=== PATIENT | male | born 1980 | race Two or more races ===

== ENCOUNTER 2017-01-14 09:46 | Emergency (ER) | payer MEDICAID ==
[~2017-01-14] VITALS: Ht 172.7 cm; Wt 81.6 kg
[2017-01-14 09:50] VITALS: BP 114/62
== END 2017-01-14 10:13 | disposition home or self-care (01) ==
LOC: ER 09:48
DX: Z76.0 Encounter for issue of repeat prescription (principal); F32.9 Major depressive disorder, single episode, unspecified
CPT/HCPCS: A4606; Z7610

== ENCOUNTER 2017-04-05 13:07 | Emergency (ER) | payer MEDICAID ==
[~2017-04-05] VITALS: Ht 172.7 cm; Wt 79.4 kg
[2017-04-05 13:19] VITALS: BP 151/84
[2017-04-05] MEDS ORDERED: PAROXETINE HCL 20 MG TABLET PO SCH (13:30)
== END 2017-04-05 13:43 | disposition home or self-care (01) ==
LOC: ER 13:11
DX: F41.9 Anxiety disorder, unspecified (principal); F32.9 Major depressive disorder, single episode, unspecified; I31.9 Disease of pericardium, unspecified; F17.200 Nicotine dependence, unspecified, uncomplicated
CPT/HCPCS: 99284; A4606; Z7610

== ENCOUNTER 2017-05-05 17:55 | Emergency (ER) | payer MEDICAID ==
[~2017-05-05] VITALS: Ht 172.7 cm; Wt 74.8 kg
[2017-05-05 18:00] VITALS: BP 121/72
== END 2017-05-05 18:44 | disposition home or self-care (01) ==
LOC: ER 18:00
DX: F32.9 Major depressive disorder, single episode, unspecified (principal); Z76.0 Encounter for issue of repeat prescription; Z79.899 Other long term (current) drug therapy; F17.200 Nicotine dependence, unspecified, uncomplicated; Z91.19 Patient's noncompliance with other medical treatment and regimen
CPT/HCPCS: 99284; A4606; Z7610

== ENCOUNTER 2017-11-01 00:06 | Inpatient (IN) | payer MEDICAID, OTHER ==
[2017-11-01] VITALS (84 sets, daily range): BP systolic 48–157; BP diastolic 34–117
[~2017-11-01] VITALS: Ht 170.2 cm; Wt 77.1 kg
--- NOTE | 2017-11-01 00:10 | NUR ---
PT TO ER BED 7. PT BIB RA C/O OVERDOSE ON ETOH AND NORCO X 20 PER PARAMEDICS. PT PLACED IN GOWN AND ON PRODUCTION LABORER. RESP EVEN UNLABORED/NAD NOTED/AFEBRILE/SKIN WARM AND DRY/AOX4. AWAITING MD TAN.
--- NOTE | 2017-11-01 00:20 | NUR ---
MD AT BEDSIDE. AWARE OF PT O2 SATING AT 79%. PT PLACED ON A NRB AT 15LPM.
--- NOTE | 2017-11-01 00:25 | NUR ---
LAB AT BEDSIDE TO DRAW.
[2017-11-01] MEDS ORDERED: ONDANSETRON HCL/PF 4 MG/2 ML VIAL IV ONE (00:30)
[2017-11-01] MEDS ORDERED: IV NS 0.9% 1,000 ML BAG IV ONE (00:30)
[2017-11-01] MEDS ORDERED: ONDANSETRON HCL/PF 4 MG/2 ML VIAL ONE ×2 (00:33→00:52)
[2017-11-01 00:35] LABS: BASOPHILS % (AUTO) 0.5 % (0.0-2.0); EOSINOPHILS # (AUTO) 0.1 /CMM (0.0-0.7); EOSINOPHILS % (AUTO) 0.8 % (0.0-6.0); HEMATOCRIT 48 % (39-51); HEMOGLOBIN 16.3 g/dL (13.5-17.5); LYMPHOCYTES # (AUTO) 4.7 /CMM (0.8-4.8); LYMPHOCYTES % (AUTO) 46.5 % (20.0-44.0); MEAN CORPUSCULAR HEMOGLOBIN 33 PG (26.0-33.0); MEAN CORPUSCULAR HGB CONC 34 g/dl (31.0-36.0); MEAN CORPUSCULAR VOLUME 96 fL (80-96); MONOCYTES # (AUTO) 0.4 /CMM (0.1-1.30); MONOCYTES % (AUTO) 3.7 % (2.0-12.0); NEUTROPHILS # (AUTO) 4.9 /CMM (1.8-8.9); NEUTROPHILS % (AUTO) 48.5 % (43.0-81.0); PLATELET COUNT (AUTO) 209 /CMM (150-450); RDW COEFFICIENT OF VARIATION 13.2 (11.5-15.0)
[2017-11-01 00:44] LABS: CREATININE 1.4 mg/dL (0.6-1.3); POTASSIUM 2.9 mmol/L (3.5-5.1)
[2017-11-01 00:48] LABS: ALBUMIN 3.7 g/dL (3.4-5.0); BILIRUBIN,TOTAL 0.3 mg/dL (0.2-1.0); SALICYLATE 1.7 mg/dL (2.8-20.0)
--- NOTE | 2017-11-01 01:00 | NUR ---
ZOFRAN 4MG IV L AC GIVEN PER MD VERBAL ORDER.
--- NOTE | 2017-11-01 01:05 | NUR ---
XRAY AT BEDSIDE.
[2017-11-01] MEDS ORDERED: AZTREONAM 1 G VIAL ONE (01:27)
[2017-11-01] MEDS ORDERED: LEVOFLOXACIN 750 MG /D5W 150ML 150 ML IV ONE (01:27)
[2017-11-01] MEDS ORDERED: LEVOFLOXACIN 750 MG /D5W 150ML PIGGYBACK IV ONE (01:30)
[2017-11-01] MEDS ORDERED: AZTREONAM 1 G in IV NS 0.9% 100 ML IV ONE (01:30)
--- NOTE | 2017-11-01 01:40 | NUR ---
CALLED FOR ICU BED
--- NOTE | 2017-11-01 01:48 | NUR ---
DR HUDSON AND RT AT BEDSIDE FOR INTUBATION. SEE INTUBATION INTERVENTION NOTES.
[2017-11-01] MEDS ORDERED: PROPOFOL 100 ML ONE ×2 (02:06→02:13)
--- NOTE | 2017-11-01 02:06 | NUR ---
CALLED RADIOLOGY FOR STAT CXR FOR TUBE PLACEMENT
--- NOTE | 2017-11-01 02:07 | NUR ---
XRAY AT BEDSIDE FOR PLACEMENT CHECK OF ET TUBE.
--- NOTE | 2017-11-01 02:10 | NUR ---
VENT SETTINGS PEEP 10/RATE 20/TV 550/FIO2 100%.
--- NOTE | 2017-11-01 02:25 | NUR ---
PROPOFOL TITRATED TO 20MCG/MIN PER PROTOCOL. PT B/P 183/126 HR 133.
--- NOTE | 2017-11-01 02:29 | NUR ---
ICU 264
--- NOTE | 2017-11-01 02:30 | NUR ---
RT REMAINS AT BEDSIDE. PROPOFOL TITRATED TO 25 MCG/MIN PER PROTOCOL. PT B/P 198/130 HR 137.
--- NOTE | 2017-11-01 02:48 | NUR ---
PT INTUBATED IN ER BY MD HUDSON WITH 7.5CM ETT @ 24 MM LIP, BILATERAL BREATH SOUNDS PRESENT, POSITIVE COLOR CHANGE ON CAP. PT PLACED ON THE FOLLOWING SETTING AC R20 VT 550 100%O2 +10 PEEP, PT TOLERATING SETTINGS AMBU BAG AT BEDSIDE, VENT ALARMS SET AND DISCONNECTION VERIFIED, VENT PLUGGED INTO RED OUTLET. PT SUCTIONED AND COPIOUS AMOUNTS OF SECRETIONS CONTAINING STOMACH CONTENT( POSSIBLE ASPIRATION).PENDING POST INTUBATION ABG, WILL CONTINUE TO MONITOR... Addendum: 11/01/17 at 0402 by HORTENSIA GALEANO RT Amended: Links added.
[2017-11-01 02:54] LABS: ABG BASE EXCESS -8.7 mmol/L; ABG OXYGEN SATURATION 74.7 % (92.0-98.5); ABG PCO2 76.9 mmHg (35.0-45.0); ABG PH 7.098 (7.350-7.450); ABG PO2 48.7 mmHg (75.0-100.0); AaDO2 587.4 mmHg; COHb 1.8 % (0.5-1.5); MetHb 0.4 % (0.0-1.5); O2Hb 73.1 % (94.0-97.0); SITE, ABG Left Radial; VENT MODE, BG NRB
[2017-11-01] MEDS ORDERED: ETOMIDATE 2 MG/ML VIAL IV ONE (03:00)
[2017-11-01] MEDS ORDERED: ENOXAPARIN SODIUM 40 MG/0.4 ML DISP.SYRIN SQ SCH (03:00)
[2017-11-01] MEDS ORDERED: PROPOFOL 100 ML IV PRN ×2 (03:00→10:30)
[2017-11-01] MEDS ORDERED: ONDANSETRON HCL/PF 4 MG/2 ML VIAL IVP PRN (03:00)
[2017-11-01] MEDS ORDERED: ONDANSETRON HCL/PF 4 MG/2 ML VIAL IV PRN (03:00)
[2017-11-01] MEDS ORDERED: ZOLPIDEM TARTRATE 5 MG TABLET PO PRN (03:00)
[2017-11-01] MEDS ORDERED: HYDROCODONE/APAP 5/325MG 1 EACH TABLET PO PRN (03:00)
[2017-11-01] MEDS ORDERED: MAGNESIUM HYDROXIDE 30 ML UDC PO PRN (03:00)
[2017-11-01] MEDS ORDERED: ROCURONIUM BROMIDE 50 MG/5 ML IV ONE (03:00)
[2017-11-01] MEDS ORDERED: ACETAMINOPHEN 325 MG TABLET PO PRN (03:00)
--- NOTE | 2017-11-01 03:20 | NUR ---
REPORT CALLED TO CRISTINA VALLADARES FOR PILO.
--- NOTE | 2017-11-01 03:21 | NUR ---
URINE OBTAINED AND SENT TO THE LAB.
[2017-11-01] MEDS ORDERED: VANCOMYCIN 1 GM in IV D5W 250 ML IV ONE ×2 (03:30→04:00)
[2017-11-01] MEDS ORDERED: PANTOPRAZOLE 40 MG VIAL IV ONE (03:30)
--- NOTE | 2017-11-01 03:40 | NUR ---
PT TRANSPORTED TO ICU 264 VIA STRETCHER ON LAB SPECIALIST WITH RN AND RT PER ACLS PROTOCOL.
[2017-11-01 03:51] LABS: APPEARANCE,URINE CLEAR (CLEAR); BILIRUBIN,URINE NEGATIVE (NEGATIVE); BLOOD, URINE 1+ Ery/uL (NEGATIVE); COLOR,URINE YELLOW (YELLOW); KETONES,URINE NEGATIVE (NEGATIVE); LEUKOCYTE ESTERASE ,URINE NEGATIVE (NEGATIVE); NITRITE, URINE NEGATIVE (NEGATIVE); PH,URINE 5.5 (5.0-8.0); PROTEIN,URINE 1+ mg/dl (NEGATIVE); UGLUCOSE TRACE mg/dL (NEGATIVE); UROBILINOGEN,URINE 0.2 EU/dL (0.2)
--- NOTE | 2017-11-01 04:00 | NUR ---
SALES STORE CHECKER INITIAL NOTE RECEIVED REPORT FROM ALLISON EVANS. PT TRANSPORTED VIA GURNEY TO ICU BY TJ RN, HORTENSIA RT AND EMT. PT IN MOVED TO BED. INTUBATED AND SEDATED ON PROPOFOL AT 25MCG. PUPILS ARE PINPOINT AND NON REACTIVE. UNABLE TO ASSESS LUNG SOUNDS. ETT 7.5 24 CM. VENT SETTINGS AC 20 TV 550 FIO2 100 PEEP 10. BOWEL SOUNDS HYPOACTIVE. DAVENPORT INTACT AND DRAINING URINE. PULSES PRESENT. SKIN IS MOTTLING AND COLD TO TOUCH. TEMP 98.6 AXILLARY. IV PATENT AND INTACT, AC 18G ON LEFT AND RIGHT. BED IN LOW LOCKED POSITION. WILL CONTINUE TO CLOSELY MONITOR.
[2017-11-01 04:07] LABS: BACTERIA,URINE None seen /HPF (None Seen); SQUAMOUS EPITHELIAL CELL,UR Few /HPF (None Seen); WBC,URINE 0-2 /HPF (0-3)
[2017-11-01] MEDS ORDERED: Thiamine 100 MG/ML VIAL ONE (04:10)
[2017-11-01] MEDS ORDERED: VANCOMYCIN 1 GM VIAL ONE (04:11)
[2017-11-01] MEDS: Thiamine 100 MG in IV D5W 50 ML IV SCH (04:20)
[2017-11-01 04:28] LABS: ABG BASE EXCESS -11.2 mmol/L; ABG OXYGEN SATURATION 55.8 % (92.0-98.5); ABG PCO2 81.9 mmHg (35.0-45.0); ABG PH 7.049 (7.350-7.450); ABG PO2 35.1 mmHg (75.0-100.0); COHb 1.8 % (0.5-1.5); MetHb 0.3 % (0.0-1.5); O2Hb 54.6 % (94.0-97.0); PEEP,BG 10 cm H2O; SITE, ABG Left Radial; VENT MODE, BG AC VENT; VT, ABG 550 mL
[2017-11-01] MEDS: IV NS 0.9% 1,000 ML IV PRN ×2 (04:48→13:25)
[2017-11-01] MEDS: PROPOFOL 100 ML IV PRN ×7 (04:52→21:20)
--- NOTE | 2017-11-01 05:05 | NUR ---
BLANKET WINDER OPERATOR SPOKE WITH DR VICKERS REGARDING NEW PATIENT AND POST INTUBATION RESULTS. NEW ORDERS RECEIVED WILL ENDORSE TO RT. BLOOD PRESSURE LOW IN THE 80'S WITH A HR IN THE 130'S, ORDER FOR NEOSYNPHRINE RECEIVED. WILL CONTINUE TO CLOSELY MONITOR.
[2017-11-01] MEDS ORDERED: Folic acid 1 MG/0.2 ML VIAL ONE (05:06)
--- NOTE | 2017-11-01 05:12 | NUR ---
VENT SETTINGS CHANGE DUE TO POST ABG RESULTS. 26, 600, 100% +10 Addendum: 11/01/17 at 0515 by MARY HUTTON RT Amended: Links added.
[2017-11-01] MEDS ORDERED: PIPERACILLIN /TAZOBACTAM 3.375 G VIAL IV ONE (05:13)
[2017-11-01] MEDS: Folic acid 1 MG in IV D5W 50 ML IV SCH (05:20)
--- NOTE | 2017-11-01 05:23 | NUR ---
SAMPLER RADIOACTIVE WASTE DF PT POTASSIUM OF 2.9 ORDER FOR 50MEQ KCL IV.NO POTASSIUM KCL IN PYXIS OR IN NIGHT LOCKER. I S/W RN MEDICAL DATA ENTRY CLERK LASHAWN SCHMID SCUT[facility]ER TENDER PAGE TO [facility]. PHARMACISTS EN ROUTE.
[2017-11-01] MEDS ORDERED: PHENYLEPHRINE 10 MG/ML VIAL ONE ×2 (05:29)
[2017-11-01] MEDS: PHENYLEPHRINE 80 MG in IV D5W 250 ML IV PRN ×5 (05:35→21:20)
[2017-11-01 05:37] LABS: HEMATOCRIT 57 % (39-51); LYMPHOCYTES % (AUTO) 50.7 % (20.0-44.0); MEAN CORPUSCULAR HEMOGLOBIN 33 PG (26.0-33.0); MEAN CORPUSCULAR HGB CONC 34 g/dl (31.0-36.0); MEAN CORPUSCULAR VOLUME 96 fL (80-96); NEUTROPHILS % (AUTO) 47.2 % (43.0-81.0); PLATELET COUNT (AUTO) 234 /CMM (150-450); RDW COEFFICIENT OF VARIATION 13.1 (11.5-15.0); RED BLOOD CELL COUNT(AUTO) 5.95 MIL/uL (4.5-6.0); WHITE BLOOD COUNT (AUTO) 2.9 K/uL (4.3-11.0)
[2017-11-01 05:38] LABS: BASOPHILS % (AUTO) 0.2 % (0.0-2.0); EOSINOPHILS % (AUTO) 0.6 % (0.0-6.0); HEMOGLOBIN 19.4 g/dL (13.5-17.5); LYMPHOCYTES # (AUTO) 1.5 /CMM (0.8-4.8); MONOCYTES % (AUTO) 1.3 % (2.0-12.0); NEUTROPHILS # (AUTO) 1.4 /CMM (1.8-8.9)
--- NOTE | 2017-11-01 05:44 | NUR ---
RESPIRATORY ASSISTANT DF PT WITH LOW BP NEOSYNEPHRINE 80 MG ORDERED/40 MG AVAIL AT THIS TIME/PHARMACISTS IN ROUTE TO PREPARE 80 MG NEOSYNEPHRINE. WILL TRANSFUSE 40MG/250 ML UNTIL 80 IS AVAIL
[2017-11-01 05:46] LABS: ALANINE AMINOTRANSFERASE 7 U/L (12-78); ALKALINE PHOSPHATASE 60 U/L (46-116); BILIRUBIN,TOTAL 0.4 mg/dL (0.2-1.0); CALCIUM, SERUM 7.6 mg/dL (8.5-10.1); CARBON DIOXIDE 25 mmol/L (21-32); CHLORIDE 105 mmol/L (98-107); CREATININE 1.6 mg/dL (0.6-1.3); GLUCOSE 171 mg/dL (74-106); SODIUM SERUM 141 mmol/L (136-145); TOTAL PROTEIN, SERUM 6.2 g/dL (6.4-8.2)
[2017-11-01 05:51] LABS: TROPONIN I 0.286 ng/mL (0.00-0.056)
[2017-11-01 05:57] LABS: THYROID STIMULATING HORMONE 1.491 uIU/mL (0.358-3.74)
[2017-11-01 05:58] LABS: UREA NITROGEN, BLOOD 17 mg/dL (7-18)
[2017-11-01 05:59] LABS: ASPARTATE AMINOTRANSFERASE 0 U/L (15-37)
[2017-11-01] MEDS: POTASSIUM CL. PREMIX PERIPHER. 50 ML IV SCH ×6 (05:59→13:30)
[2017-11-01] MEDS: PIPERACILLIN /TAZOBACTAM 4.5 G in IV D5W 50 ML IV SCH ×3 (06:11→17:05)
[2017-11-01 06:24] LABS: LYMPHOCYTES % (MANUAL) 57 % (16-48); MONOCYTES % (MANUAL) 1 % (0-11.0); NEUTROPHILS % (MANUAL) 42 (42-76)
--- NOTE | 2017-11-01 06:25 | NUR ---
TENNIS CENTRE MANAGER DECREASED PROPOFOL DUE TO INCREASED SEDATION. PT WOKE UP, OPENS EYES, ABLE TO FOLLOW SIMPLE COMMANDS. WILL INCREASE PROPOFOL TO PRIOR SETTINGS OF PROPOFOL 25MCG. WILL CONTINUE TO MONITOR.
[2017-11-01] MEDS ORDERED: FEE PK DOSING 1 MIN EA MC ONE (07:23)
--- NOTE | 2017-11-01 07:30 | NUR ---
ICU/RN: Pt received intubated, on 100% FIO2, with O2 saturation in 70's, lungs sounds with diminshed rhonchi throughout. Airway cleared of secretions. SBP fluctuating between 70-80's SBP, ongoing titration of IV pressors to maintain SBP >90mmHg. Tele reading ST 110's. Pt skin clammy, diaphoretic, bilat lower ext pale and mottled. OGT set to LIS with brown gastric drainage. Auscultated, postive placement. FC draining to gravity. Alarm sounds audible, will cont to monitor pt.
--- NOTE | 2017-11-01 07:33 | NUR ---
@0733 PT. RECEIVED ON VENT SUPPORT VIA ET TUBE WITH PARAMETERS BELLOW ORDER: AC 26 VT 600 FIO2 100% PEEP 10 B/S CLEAR BILATERAL. VENT PLUGGED INTO RED OUTLET WITH ALARMS ON AND FUNCTIONING. ASHANTI@ HOB. Addendum: 11/01/17 at 1633 by KAE ROBERTS RT Amended: Links added.
[2017-11-01] MEDS: NOREPINEPHRINE 16 MG in IV D5W 500 ML IV PRN ×2 (07:52→15:13)
[2017-11-01 08:01] LABS: SITE, ABG Left Femoral
[2017-11-01 08:02] LABS: ABG OXYGEN SATURATION 71.8 % (92.0-98.5); ABG PCO2 47.9 mmHg (35.0-45.0); ABG PH 7.232 (7.350-7.450); ABG PO2 35.4 mmHg (75.0-100.0); AaDO2 629.7 mmHg; COHb 0.6 % (0.5-1.5); MetHb 0.1 % (0.0-1.5); O2Hb 71.3 % (94.0-97.0); PEEP,BG 10 cm H2O; VT, ABG 600 mL
[2017-11-01] MEDS: PANTOPRAZOLE 40 MG VIAL IV SCH (08:08)
[2017-11-01] MEDS ORDERED: ROCURONIUM BROMIDE 50 MG/5 ML ONE (08:37)
[2017-11-01] MEDS ORDERED: ETOMIDATE 2 MG/ML VIAL ONE (08:37)
--- NOTE | 2017-11-01 08:45 | NUR ---
ICU/RN: 0600, 0700 of KCL dose administered at 0845 and 0945 respectively; 0600 dose did not save on [employer] and showed up late on EMAR.
[2017-11-01] MEDS ORDERED: VASOPRESSIN INJ 50 UNIT in IV D5W 497.5 ML IV PRN (09:30)
--- NOTE | 2017-11-01 09:30 | NUR ---
VENT ESEQUIEL HU PER DR. PANG: AC 24 VT 650 PEEP +15 CMH20 Addendum: 11/01/17 at 0931 by KAE ROBERTS RT Amended: Links added.
--- NOTE | 2017-11-01 09:45 | NUR ---
ICU/RN: Dr Raza at bedside; updated on current labs, resp status. Pt awakens to name and touch and follows commands however becomes agitated when off sedation. Per Dr Raza, maximize sedation, pt with severe hypoxemia and barotrauma with difficulty maintaining O2 sat >92%. Ok to titrate Diprivan up to 100mcg/kg/min. Vasopressin ordered for BP support.
[2017-11-01] MEDS ORDERED: IV NS 0.9% 250 ML IV ONE (10:00)
--- NOTE | 2017-11-01 11:00 | NUR ---
ICU/RN: Dr Andrews in for nephrology consult; updated on pt status. Informed of minimal urine output; only 40cc of urine from [id number].
[2017-11-01] MEDS: HYDROMORPHONE INJ 0.5 MG/0.5 ML SYRINGE IV PRN ×3 (11:05→17:06)
[2017-11-01 11:12] LABS: ABG BASE EXCESS -6.1 mmol/L; ABG OXYGEN SATURATION 90.5 % (92.0-98.5); ABG PCO2 37.2 mmHg (35.0-45.0); ABG PH 7.327 (7.350-7.450); ABG PO2 56.4 mmHg (75.0-100.0); AaDO2 619.4 mmHg; MetHb 0.6 % (0.0-1.5); PEEP,BG 15 cm H2O; SITE, ABG Left Femoral; VT, ABG 650 mL
[2017-11-01 13:34] LABS: CALCIUM, SERUM 7.6 mg/dL (8.5-10.1); CREATININE 2.7 mg/dL (0.6-1.3)
[2017-11-01] MEDS ORDERED: PHARMACY TO ADJUST ALL MEDS FOR RENAL FUNCT XX PRN (14:00)
--- NOTE | 2017-11-01 15:00 | NUR ---
ICU/RN: Urine sample collected. Called lab for turkey picker.
[2017-11-01] MEDS ORDERED: IV NS 0.9% 1,000 ML IV PRN (15:16)
[2017-11-01] MEDS ORDERED: IV NS 0.9% 250 ML IV PRN (15:30)
[2017-11-01 16:19] LABS: CREATININE, URINE 160.4 MG/DL (30.0-125.0)
[2017-11-01] MEDS: VANCOMYCIN 1 GM in IV NS 0.9% 250 ML IV SCH (16:23)
--- NOTE | 2017-11-01 19:17 | NUR ---
ICU/RN: Pt intubated, in bed, tolerating current vent settings, SPO2 100%, SBP maintained over 90mmHg. Pt sedated on Diprivan at 80mcg/kg/min. DAVID PICC patent and intact. FC with good urine output of clear yellow urine. Care endorsed to PM RN for PILO.
--- NOTE | 2017-11-01 20:00 | NUR ---
TRAFFIC EXPERT NOTES RECEIVED PT IN BED, SEDATED. TELE READS SR 90s. ON VENT VIA ETT, RIGOBERTO WELL, SATING AT 100%. OGT IN PLACE, CONNECTED TO LIS WITH MINIMAL BROWN GASTRIC OUTPUT. DAVENPORT CATH IN PLACE, DRAINING WELL. DAVID PICC RUNNING SHANTELLE AT 300 MCG/MIN, LEVO AT 30 MCG/MIN, DIPRIVAN AT 80 MCG/KG/MIN, AND NS AT TKO. RAC 18G AND LW 20G IN PLACE. COLD LOWER EXTREMITIES WITH WEEK PULSES. HOB ELEVATED, TURNED AND REPOSITIONED. SIDE RAILS X 3. AT BEDSIDE, ALL QUESTIONS ANSWERED.
--- NOTE | 2017-11-01 23:30 | NUR ---
BUILDING SERVICES COORDINATOR NOTES PT TOLERATING CURRENT VENT SETTINGS VERY WELL. CONTACTED THERAPIST PHYS DESIGN PROJECT MANAGER, DR ARAUJO. ORDERS RECEIVED TO DECREASE TIDAL VOLUME AND TITRATE PEEP AND FIO2 TOLERATED.
[2017-11-02] VITALS (104 sets, daily range): BP systolic 88–135; BP diastolic 47–77
[2017-11-02] MEDS: PROPOFOL 100 ML IV PRN ×9 (00:12→23:30)
[2017-11-02] MEDS: NOREPINEPHRINE 16 MG in IV D5W 500 ML IV PRN ×3 (00:13→17:11)
[2017-11-02] MEDS: PIPERACILLIN /TAZOBACTAM 4.5 G in IV D5W 50 ML IV SCH ×5 (00:17→23:00)
[2017-11-02] MEDS: Folic acid 1 MG in IV D5W 50 ML IV SCH (02:36)
[2017-11-02] MEDS: Thiamine 100 MG in IV D5W 50 ML IV SCH (02:36)
[2017-11-02] MEDS ORDERED: LEVOFLOXACIN 750 MG /D5W 150ML 750 MG in PREMIX 1 EA IV SCH ×2 (03:30→23:00)
[2017-11-02] MEDS: VANCOMYCIN 1 GM in IV NS 0.9% 250 ML IV SCH ×2 (04:39→17:51)
[2017-11-02 05:11] LABS: BASOPHILS % (AUTO) 0.1 % (0.0-2.0); EOSINOPHILS % (AUTO) 0.1 % (0.0-6.0); HEMATOCRIT 43 % (39-51); HEMOGLOBIN 14.8 g/dL (13.5-17.5); LYMPHOCYTES # (AUTO) 1.2 /CMM (0.8-4.8); LYMPHOCYTES % (AUTO) 8.8 % (20.0-44.0); MEAN CORPUSCULAR HEMOGLOBIN 33 PG (26.0-33.0); MEAN CORPUSCULAR HGB CONC 35 g/dl (31.0-36.0); MEAN CORPUSCULAR VOLUME 95 fL (80-96); MONOCYTES # (AUTO) 0.4 /CMM (0.1-1.30); MONOCYTES % (AUTO) 2.8 % (2.0-12.0); NEUTROPHILS # (AUTO) 11.8 /CMM (1.8-8.9); NEUTROPHILS % (AUTO) 88.2 % (43.0-81.0); PLATELET COUNT (AUTO) 137 /CMM (150-450); RDW COEFFICIENT OF VARIATION 12.9 (11.5-15.0); RED BLOOD CELL COUNT(AUTO) 4.48 MIL/uL (4.5-6.0); WHITE BLOOD COUNT (AUTO) 13.4 K/uL (4.3-11.0)
[2017-11-02 05:33] LABS: ALBUMIN 2.5 g/dL (3.4-5.0); BILIRUBIN,TOTAL 0.6 mg/dL (0.2-1.0); CALCIUM, SERUM 7.8 mg/dL (8.5-10.1); CREATININE 2.2 mg/dL (0.6-1.3); MAGNESIUM 1.3 mg/dL (1.8-2.4); PHOSPHORUS 3.1 mg/dL (2.5-4.9); POTASSIUM 4.7 mmol/L (3.5-5.1); TOTAL PROTEIN, SERUM 5.7 g/dL (6.4-8.2)
--- NOTE | 2017-11-02 07:10 | NUR ---
PT RECEIVED ORALLY INTUBATED ON MECHANICAL VENT W/ SETTINGS PER MD. VENT IN RED OUTLET, VENT ALARMS CHECKED AND AUDIBLE. PT SX'ED AND LAVAGED PRN TO MOD AMOUNTS OF THICK PALE YELLOW SECRETIONS. ETT SECURED WITH ANCHOFAST, PATENT, CLEAN AND DRY. BREATH SOUNDS EQUAL, DIMINISHED. PLAN IS TO CONTINUE CURRENT CARE UNDER MD ORDERS AND MONITOR FOR CHANGES IN STATUS. Addendum: 11/02/17 at 0743 by PANCHO WHITING RT Amended: Links added.
--- NOTE | 2017-11-02 07:50 | NUR ---
REFRIGERATING ENGINEER NOTES RECEIVED PT IN BED, SEDATED. INTUBATED ETT 7.5 24 CM AT THE LIP. TOLERATED CURRENT [facility] VENT SETTINGS: AC 24 TV 550 FIO2 40% PEEP 8. SR 90s. OGT IN PLACE, CLAMPED. DAV[place] CATH IN PLACE, DRAINING ADEQUATE UO. DAVID PICC RUNNING LEVO AT 28 MCG/MIN, DIPRIVAN AT 50 MCG/KG/MIN, AND NS AT TKO. RAC 18G IN PLACE. HOB ELEVATED, REPOSITIONED FOR COMFORT. SIDE RAILS X 3. WILL CONT TO MONITOR
[2017-11-02 08:00] LABS: ABG BASE EXCESS -1.2 mmol/L; ABG OXYGEN SATURATION 93.5 % (92.0-98.5); ABG PCO2 38.5 mmHg (35.0-45.0); ABG PH 7.399 (7.350-7.450); ABG PO2 66.1 mmHg (75.0-100.0); AaDO2 174.8 mmHg; COHb 0.5 % (0.5-1.5); MetHb 0.5 % (0.0-1.5); O2Hb 92.6 % (94.0-97.0); PEEP,BG 8 cm H2O; SITE, ABG Right Radial; VENT MODE, BG AC 24 550; VT, ABG 550 mL
[2017-11-02] MEDS: ENOXAPARIN SODIUM 40 MG/0.4 ML DISP.SYRIN SQ SCH (08:29)
[2017-11-02] MEDS: PANTOPRAZOLE 40 MG VIAL IV SCH (08:30)
[2017-11-02] MEDS: Magnesium 1GM/D5W 100ML PREMIX 100 ML IV SCH ×2 (11:14→12:10)
--- NOTE | 2017-11-02 16:17 | NUR ---
rn notes sedation vacation. pt noted agitated and restless, bitting tube. diprivan resumed on previous rate
--- NOTE | 2017-11-02 20:21 | NUR ---
PT RECEIVED INTUBATED 7.5 ETT SECURED AT 24CM AT THE LIP. NO RESP DISTRESS NOTED. PT TOLERATING VENT SETTINGS. SX'D FOR SML AMT OF TINGED SECRETIONS. VENT ALARMS SET AND AUDIBLE. AMBU BAG AT BEDSIDE. ETT CORN CUTTER OPERATOR. VENT PLUGGED INTO RED OUTLET. WILL CONTINUE TO MONITOR. Addendum: 11/02/17 at 2022 by QUINTIN OLSON RT Amended: Links added.
[2017-11-02] MEDS ORDERED: IV NS 0.9% 100 ML IV PRN (22:00)
[2017-11-03] VITALS (88 sets, daily range): BP systolic 71–186; BP diastolic 40–121
[2017-11-03] MEDS: Folic acid 1 MG in IV D5W 50 ML IV SCH (03:00)
[2017-11-03] MEDS: Thiamine 100 MG in IV D5W 50 ML IV SCH (03:30)
--- NOTE | 2017-11-03 04:00 | NUR ---
GLOBAL CLIMATE CHANGE RESEARCHER ATTEMPTED TO GIVE PT BED BATH; PT WOKE UP; BITING ET TUBE; THRASHING AROUND THE BED. NOT FOLLOWING COMMANDS. SITTING UP. TITRATED PROPOFOL PER PROTOCOL. CONTINUE TO MONITOR. Addendum: 11/03/17 at 0734 by LYUDMILA FELTON RN PT NOTED TO DESATURATE AT THIS TIME ALSO; RT PLACED BITE BLOCK AND INCREASED FIO2 TO 70%. PT COUGHING UP THICK BLOOD TINGED SECRETIONS.
[2017-11-03] MEDS: VANCOMYCIN 1 GM in IV NS 0.9% 250 ML IV SCH (04:01)
[2017-11-03] MEDS: PROPOFOL 100 ML IV PRN ×6 (04:01→18:40)
[2017-11-03 05:05] LABS: CALCIUM, SERUM 7.5 mg/dL (8.5-10.1); CREATININE 1.5 mg/dL (0.6-1.3); POTASSIUM 4.1 mmol/L (3.5-5.1)
[2017-11-03] MEDS: PIPERACILLIN /TAZOBACTAM 4.5 G in IV D5W 50 ML IV SCH ×4 (06:00→23:14)
--- NOTE | 2017-11-03 06:00 | NUR ---
FUR DESIGNER PT WOKE UP; THRASHING AROUND THE BED. NOT FOLLOWING COMMANDS. SITTING UP. TITRATED PROPOFOL PER PROTOCOL. CONTINUE TO MONITOR.
--- NOTE | 2017-11-03 07:10 | NUR ---
CHIEF DIVERSITY OFFICER UNABLE TO REPOSITION PT D/T AGITATION. PENDING CXR PT CONTINUES TO BE AGITATED AND ATTEMPTING TO GET OUT OF BED.
--- NOTE | 2017-11-03 07:45 | NUR ---
RN NOTES RECEIVED PT IN BED, SEDATED. INTUBATED ETT 7.5 24 CM AT THE LIP. TOLERATED CURRENT [facility] VENT SETTINGS: AC 24 TV 550 FIO2 70% PEEP 8. SR 90s. OGT IN PLACE, CLAMPED. DAV[place] CATH IN PLACE, DRAINING ADEQUATE UO. DAVID PICC RUNNING LEVO AT 4 MCG/MIN, DIPRIVAN AT 75 MCG/KG/MIN, AND NS AT TKO. RAC 18G IN PLACE. HOB ELEVATED, REPOSITIONED FOR COMFORT. SIDE RAILS X 3. WILL CONT TO MONITOR
[2017-11-03] MEDS: PANTOPRAZOLE 40 MG VIAL IV SCH (08:54)
[2017-11-03] MEDS: ENOXAPARIN SODIUM 40 MG/0.4 ML DISP.SYRIN SQ SCH (09:15)
[2017-11-03] MEDS: NOREPINEPHRINE 16 MG in IV D5W 500 ML IV PRN ×2 (09:30→17:12)
[2017-11-03 09:32] LABS: ABG BASE EXCESS -1.9 mmol/L; ABG OXYGEN SATURATION 98.4 % (92.0-98.5); ABG PCO2 29.3 mmHg (35.0-45.0); ABG PH 7.469 (7.350-7.450); ABG PO2 196.1 mmHg (75.0-100.0); AaDO2 271.5 mmHg; COHb 0.2 % (0.5-1.5); MetHb 0.4 % (0.0-1.5); O2Hb 97.8 % (94.0-97.0); SITE, ABG Right Radial
--- NOTE | 2017-11-03 09:37 | NUR ---
RT NOTE: ABG RESULTS REPORTED TO . CHANGES MADE PER MD ORDER.
--- NOTE | 2017-11-03 13:55 | NUR ---
FIO2 INCREASED TO 100%. PER RN PT DESAT 84% ON FIO2 OF 50%. PT SAT WENT UP TO 95% . WILL CONTINUE TO MONITOR PT. Addendum: 11/03/17 at 1401 by ORI BLACK RT Amended: Links added.
--- NOTE | 2017-11-03 15:19 | NUR ---
PT RECEIVED INTUBATED WITH ETT ON MECHANICAL VENTILATOR ON SETTINGS NOTED. VENT CHANGES DONE PER MD ORDER. BREATH SOUNDS BILATERAL COARSE DIMINISHED HEARD UPON AUSCULTATION. SUCTIONED MODERATE AMOUNT OF SPARKS WITH RED SPECKS THICK SECRETIONS. VENT PLUGGED INTO RED OUTLET. VENT ALARMS SET AND AUDIBLE. AMBU BAG AT BEDSIDE. WILL CONTINUE TO MONITOR PT. Addendum: 11/03/17 at 1520 by ORI BLACK RT Amended: Links added.
--- NOTE | 2017-11-03 17:25 | NUR ---
DECREASED FIO2 TO 90%. PT SAT 97%. WILL CONTINUE TO TITRATE O2 RIGOBERTO.
[2017-11-03] MEDS: VANCOMYCIN 1.25 GM in IV NS 0.9% 500 ML IV SCH (18:52)
--- NOTE | 2017-11-03 19:00 | NUR ---
TUNNEL MAN RECEIVED PT FROM JOSEPH EVNAS. PT CURRENTLY DESATURATING IN THE 80'S AFTER REPOSITIONING. RT CALLED TO INCREASE FIO2. MARIA C RT INCREASED FIO2 TO 100% FROM 90%. WILL CONTINUE TO CLOSELY MONITOR.
--- NOTE | 2017-11-03 19:20 | NUR ---
STORE CLERK CASHIER VERSED AND FENTANYL STARTED VIA PROTOCOL AND WILL DECREASE PROPOFOL INDICATED. WILL CONTINUE TO CLOSELY MONITOR. SATURATION REMAINS IN THE 80'S.
[2017-11-03] MEDS: FENTANYL CITRATE IV 1,250 MCG in IV NS 0.9% 225 ML IV PRN (19:21)
[2017-11-03] MEDS: MIDAZOLAM HCL 100 MG in IV NS 0.9% 80 ML IV PRN (19:22)
--- NOTE | 2017-11-03 19:30 | NUR ---
CYBER SOFTWARE ENGINEER PT VERY RESTLESS WITH DECREASE IN PROPOFOL, THRASHING IN BED, AWAKE AND ATTEMPTING TO PULL AT TUBES. WILL CLEAN UP AND REPOSITION FOR COMFORT.
[2017-11-03] MEDS: Z GUARD REMEDY 2 OZ OINT TP SCH (20:33)
--- NOTE | 2017-11-03 21:50 | NUR ---
SYSTEM DISPATCHER PT VERY AGITATED, THRASHING IN BED. ATTEMPTIMG TO DECREASE PROPOFOL AND INCREASE FENTANYL/VERSED. PT REMAINS VERY AGITATED. WILL CONTINUE TO CLOSELY MONITOR. CALL PUT OUT TO [facility] ISO COORDINATOR.
--- NOTE | 2017-11-03 22:10 | NUR ---
STEAM FITTER HELPER ROLAND CONDUIT REAMER OPERATOR MAINTENANCE JOB TITLES FOR [facility], STATED MY CONCERNS OF INCREASED AGITATION. NO NEW ORDERS RECEIVED. WILL PUT A CALL OUT TO [facility] WHERE THE ORDER ORIGINATED. WILL CONTINUE TO CLOSELY MONITOR.
--- NOTE | 2017-11-03 22:20 | NUR ---
ASSISTANT CLINICAL DIRECTOR CALLED GINGER SNIDER FUNERAL DIRECTOR. AWAITING CALL BACK.
--- NOTE | 2017-11-03 22:30 | NUR ---
REFINERY OPERATOR INCREASED SEDATION PER PROTOCOL. PT IS SEDATED AT THIS TIME. WILL CONTINUE TO MONITOR.
[2017-11-04] VITALS (107 sets, daily range): BP systolic 91–172; BP diastolic 51–120
[2017-11-04] MEDS ORDERED: FENTANYL PF 100MCG/2ML AMPUL ONE ×2 (01:35→02:03)
[2017-11-04] MEDS: Folic acid 1 MG in IV D5W 50 ML IV SCH (03:12)
[2017-11-04] MEDS: Thiamine 100 MG in IV D5W 50 ML IV SCH (03:12)
[2017-11-04] MEDS: FENTANYL CITRATE IV 1,250 MCG in IV NS 0.9% 225 ML IV PRN ×3 (03:16→14:30)
[2017-11-04] MEDS: PIPERACILLIN /TAZOBACTAM 4.5 G in IV D5W 50 ML IV SCH ×4 (05:00→23:36)
[2017-11-04 05:23] LABS: CALCIUM, SERUM 7.8 mg/dL (8.5-10.1); CREATININE 1.2 mg/dL (0.6-1.3); POTASSIUM 3.6 mmol/L (3.5-5.1)
[2017-11-04] MEDS: VANCOMYCIN 1.25 GM in IV NS 0.9% 500 ML IV SCH ×2 (05:36→18:17)
--- NOTE | 2017-11-04 05:42 | NUR ---
RT Pt orally intubated remains on [facility] ordered settings. Placed on 100% FiO2 during the night due to desaturation. Addendum: 11/04/17 at 0544 by TASHA PURCELL RT Amended: Links added.
--- NOTE | 2017-11-04 07:42 | NUR ---
INITIAL HOT DIP TINNING SUPERVISOR NOTE RCVD PT INTUBATED ETT 7.5 24 AT LIP, SEDATED ON VERSED/FENTANYL, ON BILATERAL SOFT WRISTS RESTRAINTS TOLERATING VENT SETTINGS, SATURATION UNDER 90% ON FIO2 100%. ST ON TELE. OG-TUBE PLACEMENT VERIFIED BY AUSCULTAION/ASPIRTION DAVENPORT TO GRAVITY DRAINING CLOUDY, YELLOW URINE. DAVID PICC C/D/I/PATENT. NO S/O INFILTRATION/PHLEBITIS OBSERVED IVF INFUSING. RIGHT AC C/D/I/PATENT. SALINE LOCKED. WILL CONTINUE TO MONITOR PT FOR SAFETY AND COMFORT. CALL LIGHT WITHIN REACH. BED IN LOW AND LOCKED POSITION.
[2017-11-04] MEDS: HYDROMORPHONE INJ 0.5 MG/0.5 ML SYRINGE IV PRN ×5 (08:22→21:08)
[2017-11-04] MEDS: PANTOPRAZOLE 40 MG VIAL IV SCH (08:22)
[2017-11-04] MEDS: Z GUARD REMEDY 2 OZ OINT TP SCH ×2 (08:23→20:38)
[2017-11-04] MEDS: ENOXAPARIN SODIUM 40 MG/0.4 ML DISP.SYRIN SQ SCH (08:27)
[2017-11-04] MEDS: MIDAZOLAM HCL 100 MG in IV NS 0.9% 80 ML IV PRN ×2 (09:23→22:50)
[2017-11-04] MEDS ORDERED: FENTANYL CITRATE IV 1,250 MCG in IV NS 0.9% 225 ML IV PRN (12:00)
--- NOTE | 2017-11-04 12:00 | NUR ---
ROBOTIC MACHINE TENDER PRODUCTION NOTE DR. ONTIVEROS CONTACTED TO INCREASE FENTANYL DOSE. PT MAXED OUT ON FENTANYL AND VERSED, RESTLESS WHEN REPOSITIONED, UNABLE TO ORIENT, UNABLE TO FOLLOW COMMANDS, ATTEMPTS TO SIT UP AND KICKS. WILL CONTINUE TO MONITOR. PT'S , JU CALLED SHE WAS UPDATED ON PT'S CONDITION QUESTIONS WERE ENCOURAGED AND ANSWERED TO HER SATISFACTION.
[2017-11-04 12:10] LABS: ABG BASE EXCESS -0.7 mmol/L; ABG PCO2 43.4 mmHg (35.0-45.0); ABG PH 7.373 (7.350-7.450); ABG PO2 75.5 mmHg (75.0-100.0); AaDO2 594.1 mmHg; COHb 0.3 % (0.5-1.5); MetHb 0.5 % (0.0-1.5); O2Hb 93.1 % (94.0-97.0); PEEP,BG 8 cm H2O; SITE, ABG Right Radial; VT, ABG 500 mL
--- NOTE | 2017-11-04 12:11 | NUR ---
INSPECTOR REPAIRER NOTE PT'S TEMP 100.0 COOLING MEASURES STARTED WILL CONTINUE TO MONITOR.
--- NOTE | 2017-11-04 14:17 | NUR ---
COMMERCIAL LOAN ANALYST NOTE PT'S TEMP DECREASED TO 98.1 WILL CONTINUE TO MONITOR.
[2017-11-04] MEDS: LEVOFLOXACIN 750 MG /D5W 150ML 750 MG in PREMIX 1 EA IV SCH (15:57)
--- NOTE | 2017-11-04 16:01 | NUR ---
YACHT MASTER NOTE DR. PANG ORDERED PEEP TO BE INCREASED TO 10, PT'S SATURATION DECREASED TO MID 80's, O2 SENSOR CHANGED, GOOD WAVE FORM OBSERVED ON MONITOR. DR. PANG INFORMED. ABG RECOMMENDED. ORDER PLACED, RT INFORMED TO COLLECT SAMPLE. WILL CONTINUE TO MONITOR.
[2017-11-04 16:33] LABS: ABG BASE EXCESS 0.4 mmol/L; ABG OXYGEN SATURATION 86.2 % (92.0-98.5); ABG PCO2 43.1 mmHg (35.0-45.0); ABG PO2 50.9 mmHg (75.0-100.0); COHb 0.3 % (0.5-1.5); MetHb 0.6 % (0.0-1.5); O2Hb 85.4 % (94.0-97.0); SITE, ABG Left Radial; VENT MODE, BG AC 24 500 100% +10
--- NOTE | 2017-11-04 16:33 | NUR ---
DIRECTOR MEDICAL WRITING NOTE DR. PANG RECOMMENDED TO INCREASED AND MAINTAIN PEEP BETWEEN 14-18 UNTIL O2 SATURATION STAYS ABOVE 90% THEN TITRATE O2 DOWN WHILE MAINTAINING PEEP. ARIEL, RT AWARE, WILL CONTINUE TO MONITOR.
--- NOTE | 2017-11-04 18:11 | NUR ---
HEALTH OCCUPATIONS TEACHER NOTE JU WHO IDENTIFIED PT'S AT BEDSIDE, HELD PT BY THE FACE WITH BOTH HANDS, PT WOKE UP, BECAME RESTLESS, AGITATED, UNABLE TO CALM DOWN. FENTANYL TITRATED UP, DILAUDID GIVEN ORDERED. JU WAS ASKED TO STEP OUT OF THE ROOM, SO THAT RN COULD CALM PT DOWN WITH ASSISTANCE OF PUBLIC BATH ATTENDANT. JU BECAME UPSET AND WAS REFERRED TO SPEAK WITH GOMEZ FREEMAN.
--- NOTE | 2017-11-04 19:01 | NUR ---
PRODUCE RUNNER NOTE PT REMAINS IN CRITICAL CONDITION BUT STABLE, SEDATED, INTUBATED, OG-TUBE PLACEMENT VERIFIED BY ASPIRATION/AUSCULTATION. DAVENPORT TO GRAVITY DRAINING CLOUDY, YELLOW/GREEN URINE. IV SITES REMAIN C/D/I/PATENT. NO S/O INFILTRATION/PHLEBITIS OBSERVED IVF INFUSING. PT'S CARE WILL BE ENDORSED TO TECHNICAL RESEARCH SCIENTIST RN FOR CONTINUITY OF CARE.
--- NOTE | 2017-11-04 19:08 | NUR ---
PT RCVD INTUBATED WITH ETT 7.5 @ 24 CM ON THE LIP. VENT PLUGGED INTO RED OUTLET, VENT ALARM WORKING AND AUDIBLE. SUCTIONED PT WITH WHITE THICK TINGED BLOOD SECRETIONS. AMBU BAG AT THE BEDSIDE. WILL CONTINUE TO MONITOR THE PT.
--- NOTE | 2017-11-04 19:30 | NUR ---
PAYMENT MANAGER INITIAL NOTE RECEIVED PATIENT FROM LUCIO EVANS. PT IN BED. INTUBATED AND SEDATED ON FENTANYL AND VERSED. LUNG SOUNDS RHONCHI. BOWEL SOUNDS PRESENT. OJ TUBE CLAMPED. DAVENPORT INTACT AND DRAINING URINE. PULSES PRESENT. IV PATENT AND INTACT. BED IN LOW LOCKED POSITION. WILL CONTINUE MONITOR.
--- NOTE | 2017-11-04 19:35 | NUR ---
HARPOONER RT WILL ATTEMPT TO DECREASE FIO2 TO 50% WITH A GOAL OF SPO2 >90%. IF PATIENT IS ABLE TO TOLERATE 50% FIO2, RT WILL ATTEMPT TO DECREASE PEEP. TOLERATED BY PATIENT.
[2017-11-04] MEDS: FENTANYL CITRAT IV 2,500 MCG in IV NS 0.9% 200 ML IV PRN (19:47)
[2017-11-04] MEDS: Z GUARD REMEDY 2 OZ OINT TP PRN (20:37)
[2017-11-05] VITALS (99 sets, daily range): BP systolic 108–174; BP diastolic 59–129
[2017-11-05] MEDS: HYDROMORPHONE INJ 0.5 MG/0.5 ML SYRINGE IV PRN ×3 (02:36→20:24)
[2017-11-05] MEDS: Folic acid 1 MG in IV D5W 50 ML IV SCH (02:56)
[2017-11-05] MEDS: Thiamine 100 MG in IV D5W 50 ML IV SCH (02:56)
[2017-11-05] MEDS: FENTANYL CITRAT IV 2,500 MCG in IV NS 0.9% 200 ML IV PRN ×3 (03:59→20:43)
[2017-11-05] MEDS: PIPERACILLIN /TAZOBACTAM 4.5 G in IV D5W 50 ML IV SCH ×3 (05:15→17:03)
[2017-11-05 05:17] LABS: CALCIUM, SERUM 7.9 mg/dL (8.5-10.1); CREATININE 1.1 mg/dL (0.6-1.3); POTASSIUM 3.4 mmol/L (3.5-5.1)
[2017-11-05] MEDS: VANCOMYCIN 1.25 GM in IV NS 0.9% 500 ML IV SCH ×2 (06:02→18:17)
--- NOTE | 2017-11-05 07:37 | NUR ---
INITIAL SUPERVISORY INVESTIGATIVE SPECIALIST NOTE RCVD PT SEDATED, INTUBATED ETT 7.5 24 AT LIP, BILATERAL SOFT WRIST RESTRAINTS IN PLACE. CIRCULATION CHECKS DONE. ST ON TELE. OG TUBE PLACEMENT VERIFIED BY AUSCULTATION/ASPIRATION. DAV[place] TO GRAVITY DRAINING CLOUDY, YELLOW URINE. DAVID PICC 2/3 PORTS RESISTANCE UPON FLUSHING. RIGHT AC C/D/I/PATENT. NO S/O INFILTRATION/PHLEBITIS OBSERVED. FENTANYL DECREASED TO 2.5MCG/KG/HR PT OPENED EYES, BECAME AGITATED, KICKING, UNABLE TO FOLLOW SIMPLE COMMANDS, EYES WONDERING, NOT ACKNOWLEDGING VERBAL INSTRUCTIONS. SEDATION WAS TITRATED UP. WILL CONTINUE TO MONITOR
[2017-11-05 07:47] LABS: BASOPHILS % (AUTO) 0.3 % (0.0-2.0); EOSINOPHILS # (AUTO) 0.1 /CMM (0.0-0.7); EOSINOPHILS % (AUTO) 1.5 % (0.0-6.0); HEMATOCRIT 31 % (39-51); HEMOGLOBIN 10.6 g/dL (13.5-17.5); LYMPHOCYTES # (AUTO) 0.6 /CMM (0.8-4.8); LYMPHOCYTES % (AUTO) 6.3 % (20.0-44.0); MEAN CORPUSCULAR HEMOGLOBIN 33 PG (26.0-33.0); MEAN CORPUSCULAR HGB CONC 35 g/dl (31.0-36.0); MEAN CORPUSCULAR VOLUME 95 fL (80-96); MONOCYTES # (AUTO) 0.3 /CMM (0.1-1.30); MONOCYTES % (AUTO) 3.5 % (2.0-12.0); NEUTROPHILS # (AUTO) 8.6 /CMM (1.8-8.9); NEUTROPHILS % (AUTO) 88.4 % (43.0-81.0); PLATELET COUNT (AUTO) 104 /CMM (150-450); RDW COEFFICIENT OF VARIATION 13.4 (11.5-15.0); WHITE BLOOD COUNT (AUTO) 9.7 K/uL (4.3-11.0)
[2017-11-05] MEDS: PANTOPRAZOLE 40 MG VIAL IV SCH (08:20)
[2017-11-05] MEDS: ENOXAPARIN SODIUM 40 MG/0.4 ML DISP.SYRIN SQ SCH (08:22)
[2017-11-05] MEDS ORDERED: FIBERSOURCE HN 1,000 ML BOTTLE GT PRN (09:00)
[2017-11-05] MEDS ORDERED: IV D5/ 0.9% NACL 1,000 ML IV PRN (09:00)
[2017-11-05] MEDS: Z GUARD REMEDY 2 OZ OINT TP SCH ×2 (09:22→21:36)
[2017-11-05] MEDS: MIDAZOLAM HCL 100 MG in IV NS 0.9% 80 ML IV PRN ×2 (09:27→23:31)
[2017-11-05] MEDS: PAROXETINE HCL 20 MG TABLET NG SCH (09:31)
--- NOTE | 2017-11-05 10:18 | NUR ---
MARKET RESEARCH INTERVIEWER NOTE PT NOTED TO HAVE JERKING MOVEMENT WITH THE UPPER BODY WHILE COOLING MEASURES WERE UNDERGOING, DR. ONTIVEROS INFORMED. COLD PACKS WERE REMOVED AND JERKING STOPPED. WILL CONTINUE TO MONITOR PT'S TEMP. DR. ONTIVEROS INFORMED OF CURRENT DOSE OF FENTANYL/VERSED AND THAT PT WAS UNABLE TO FOLLOW ANY COMMANDS WHILE SEDATION VACATION WAS PERFORMED EARLIER IN THE DAY.
[2017-11-05] MEDS: IV D5/0.45 NACL 1,000 ML IV PRN (10:23)
[2017-11-05 10:58] LABS: ABG BASE EXCESS -5.3 mmol/L; ABG OXYGEN SATURATION 90.7 % (92.0-98.5); ABG PCO2 29.8 mmHg (35.0-45.0); ABG PH 7.405 (7.350-7.450); ABG PO2 58.9 mmHg (75.0-100.0); AaDO2 264.1 mmHg; COHb 0.6 % (0.5-1.5); MetHb 0.3 % (0.0-1.5); O2Hb 89.9 % (94.0-97.0); SITE, ABG Left Radial; VENT MODE, BG AC 24 500 50% +12
[2017-11-05] MEDS ORDERED: POTASSIUM CHLORIDE 20 MEQ POWDER PACKET GT SCH (11:30)
[2017-11-05] MEDS: ACETAMINOPHEN 650 MG/20.3 ML UDC NG PRN ×2 (11:40→20:02)
[2017-11-05] MEDS: LEVOFLOXACIN 750 MG /D5W 150ML 750 MG in PREMIX 1 EA IV SCH (13:18)
--- NOTE | 2017-11-05 14:21 | NUR ---
PHU and case assistant Prince met with pt's mikal in the ICU waiting room. Mary Ellen stated she is pt's mikal and they were going to get in July. According to Mary Ellen, pt. lives with her and her two children at [address] in [place]. [place]. Hyde is the prep person on the face sheet and her contact number is . [place] [address], [place] [address].Mary Ellen informed PHU that pt's parents are and he is the only child. Mary Ellen and the pt. have been childhood friends in [place] and have been together in a relationship for 10 years. PHU inquired with pt. if he has a history of drug use. According to Mary Ellen, pt. was having severe back pain. Mary Ellen denies pt. uses any other drugs. However, pt's toxicology report shows positive for marijuana and alcohol. Pt. does consume alcohol. Per ER records, pt. has been coming almost monthly for refill of Paxil medication. Pt. has a history of Depression and Anxiety per ED notes. Pt's mikal Hyde was crying and emotionally upset. PHU provided active listening and provided emotional support to her. Mary Ellen was not sure as to why pt. had to be intubated in the ED when she had just spoken to him. PHU explained to her that pt. needed to be intubated to protect his airways since he was going into respiratory distress. Mary Ellen wanted to know detailed information as to what transpired in the ED. PHU informed her that she will notify the director of ED regarding her concerns.
[2017-11-05] MEDS: LACTOBACILLUS RHAMNOSUS GG 1 EACH CAP.SPRINK GT SCH (17:03)
--- NOTE | 2017-11-05 18:51 | NUR ---
MANAGING CONSULTANT NOTE PT REMAINS CRITICAL, SEDATED, INTUBATED ETT 7.5 24 AT LIP TOLERATING ORDERED VENT SETTINGS. ST ON TELE. BILATERAL SOFT WRIST RESTRAINTS IN PLACE. CIRCULATION CHECKS DONE. OG-TUBE PLACEMENT VERIFIED BY AUSCULTATION/ASPIRATION. RESIDUAL OF FIVE ML NOTED. TOLERATING ORDERED TUBE FEEDING RATE. DAVENPORT TO GRAVITY DRAINING YELLOW URINE. IV SITES C/D/I/PATENT. NO S/O INFILTRATION/PHLEBITIS OBSERVED IVF INFUSING. PT'S CARE WILL BE ENDORSED TO SECURITY INSTALLATION SALES TECHNICIAN RN FOR CONTINUITY OF CARE. BED IN LOW AND LOCKED POSITION. CALL LIGHT WITHIN REACH.
--- NOTE | 2017-11-05 20:00 | NUR ---
PT REC'D ORALLY INTUBATED VIA ETT #7.5, 24CM@LIP. PT ON [facility] VENT SETTINGS CHARTED. NO RESP DISTRESS NOTED. ALARMS ARE SET AND AUDIBLE. VENT PLUGGED INTO RED OUTLET. AMBU BAG BEDSIDE. WILL CONTINUE TO MONITOR. Addendum: 11/05/17 at 2040 by ELIN ECKERT RT Amended: Links added.
--- NOTE | 2017-11-05 20:04 | NUR ---
WILDLIFE PROTECTOR DF PT AGITATED,RESTLESS, THRASHING IN BED, PT WITH FEVERS OF 100.9 TYLENOL ADMIN. PT ON SEDATION OF VERSED @7MG/HR, AND FENTANYL AT MAX RATE OF 308 MCG/KG. PT VERY AGITATED AFTER ETT SUCTIONING, THRASHING BUE/BLE. PT WITH EYES OPEN PT DOES NOT FOLLOW COMMANDS AT, DOES NOT TRACK WITH EYES, PUPILS SLUGGISH AT 1MM. PT WITH TACHYCARDIAC AT 140 155 BPM. BP OF 168/91, 147/99. DILAUDID 0.5 MG IV GIVEN PT DANGEROUSLY AGITATED AT THIS TIME. I ASKED PT,S VISITOR TO WAIT UNTIL PT IS SEDATED CALMLY BEFORE VISITING HIM.
--- NOTE | 2017-11-05 20:47 | NUR ---
BAT PERSON DF PT DANGEROUSLY AGITATED BP ELEVATED AT 171/114, THRASHING BUE/BLE, DOES NOT FOLLOW COMMANDS. I S/W MD LÓPEZ TO DISCUSS SITUATION, ORDER TO INCREASE VERSED GTT TO 7MG/HR, AND ADMIN ATIVAN 2MG IVP Q 4 HOURS. I WILL ADMIN ATIVAN 2MG IVP NOW PRN AGITATION. VERSED GTT INCREASED TO 10MG/HR PER MD ORDER. Addendum: 11/05/17 at 2201 by GERBER GARCIA RN PT SEDATED NOW VERSED @10MG/HR, FENTANYL@ 3MCG/KG @308MCG/HR, AND WAS ADMIN DILAUDID 0.5 MG AND ATIVAN 2MG IVP. PT CALM,COOPERATIVE, BP DECREASED @ 117/67 NSR @ 106 BPM.
[2017-11-05] MEDS ORDERED: LORAZEPAM INJ 2 MG/ML VIAL ONE (20:51)
[2017-11-05] MEDS ORDERED: LORAZEPAM INJ 2 MG/ML VIAL IV PRN ×2 (21:00→23:30)
--- NOTE | 2017-11-05 22:33 | NUR ---
MANAGER PARTY DF VERSED GTT DECREASED TO 8MG/HR.
--- NOTE | 2017-11-05 23:04 | NUR ---
LANGUAGE SPECIALIST DF VERSED INCREASED BACK TO 10MG HR. PT DANGEROUSLY AGITATED THRASHING IN BED, BUCKING VENT NOT GETTING ADEQUATE TIDAL VOLUMES, SINUS TACH @ 140 BP OF 164/111. PT THRASHING BUE/BLE UNCONTROLLABLY KICKING, ATTEMPTING TO PULL ETT. DOUBLE BILATERAL SOFT WRIST RESTRAINTS IN PLACE. PT KICKING. PT UNABLE TO FOLLOW ANY COMMANDS, DOES NOT TRACK, DOES NOT RESPOND TO VERBAL, DOES NOT INTERACT WITH FAMILY AT BEDSIDE. Addendum: 11/05/17 at 2340 by GERBER GARCIA RN LANGUAGE SPECIALIST DF PRN ORDER RECEIVED FOR BENADRYL 50MG IVP FOR SEVERE AGITATION. MEDICATED ORDERED. FAMILY AT BEDSIDE UPDATED REGARDING POC.
[2017-11-05] MEDS ORDERED: diphenhydrAMINE HCL 50 MG/ML VIAL ONE (23:21)
[2017-11-05] MEDS ORDERED: diphenhydrAMINE HCL 50 MG/ML VIAL IV PRN (23:30)
[2017-11-06] VITALS (84 sets, daily range): BP systolic 86–181; BP diastolic 43–118
[2017-11-06] MEDS: PIPERACILLIN /TAZOBACTAM 4.5 G in IV D5W 50 ML IV SCH ×5 (00:05→23:16)
--- NOTE | 2017-11-06 00:10 | NUR ---
SOFTWARE CLERK DF PT WITH SEVERE AGITATION ATIVAN 2MG IVP ADMIN. PT TUBE FEEDING ON HOLD WHILE AGITATED PT DIFFICULT TO MAINTAIN HOB OVER 35 DEGREES WHILE AGITATED.
[2017-11-06] MEDS: HYDROMORPHONE INJ 0.5 MG/0.5 ML SYRINGE IV PRN ×7 (01:22→20:38)
[2017-11-06] MEDS: LORAZEPAM INJ 2 MG/ML VIAL IV PRN ×8 (01:23→20:34)
--- NOTE | 2017-11-06 01:28 | NUR ---
HARD TILE SETTER APPRENTICE DF PT WITH DANGEROUS AGITATION. THRASHING BUE/BLE OVERBREATHING VENT AT 45RPM, PT ATTEMPTING TO PULL OUT ETT. PT MEDICATED WITH DILAUDID 0.5MG AND ATIVAN 2MG IVP. RT AT BEDSIDE FOR ETT SUCTIONING AND TO RE SECURE BITE BLOCK.
--- NOTE | 2017-11-06 02:29 | NUR ---
E COMMERCE SPECIALIST DF PT WITH WORSENING SOB, RESPIRATORY DISTRESS. PT FIO2 INCREASED TO 80%.PT WITH AGITATION, PT ON MULTIPLE MEDS FOR SEDATION, PT WITH RESPIRATORY RATE OF 48 SINUS TACHYCARDIA AT 149 BPM, SEDATION INEFFECTIVE IN CONTROLLING RESPIRATORY RATE. Addendum: 11/06/17 at 0231 by GERBER GARCIA RN BP ELEVATED AT 170/103, 165/102
--- NOTE | 2017-11-06 02:50 | NUR ---
TITRATE PEEP TO 12, FIO2 TO 50% PER ABG RESULTS Addendum: 11/06/17 at 0420 by ELIN ECKERT RT Amended: Links added.
--- NOTE | 2017-11-06 02:50 | NUR ---
SERVICE CENTER COORDINATOR DF STAT ABG/PCXR DONE WAITING FOR RESULTS.
--- NOTE | 2017-11-06 02:52 | NUR ---
SEED CLEANER OPERATOR DF ABG RESULTED OF PH 7.43/CO2 35/PO2 295 HCO3 23.5. RT TO TITRATE DOWN FIO2 CURRENTLY ON 80% FIO2.
[2017-11-06 02:54] LABS: ABG BASE EXCESS -0.3 mmol/L; ABG OXYGEN SATURATION 98.9 % (92.0-98.5); ABG PCO2 35.5 mmHg (35.0-45.0); ABG PH 7.438 (7.350-7.450); ABG PO2 295.1 mmHg (75.0-100.0); COHb 0.3 % (0.5-1.5); MetHb 0.6 % (0.0-1.5); SITE, ABG Right Radial; VENT MODE, BG AC 24 500 80% +14
[2017-11-06] MEDS ORDERED: FUROSEMIDE 100 MG/10 ML VIAL IV ONE (03:30)
[2017-11-06] MEDS ORDERED: METOPROLOL TARTRATE INJ 5 MG/5 ML AMPUL IVP PRN (03:30)
[2017-11-06] MEDS ORDERED: FUROSEMIDE 40 MG/4 ML VIAL ONE (03:33)
--- NOTE | 2017-11-06 03:41 | NUR ---
NIGHT SHIFT MANAGER DF I S/W MD RENE Au DISCUSSED ABG RESULTS,PCXR, AND TACHYCARDIA AND ELEVATED BP. PRN ORDERS RECEIVED. ONE TIME LASIX DOSE OF 40 MG IVP.PT MEDICATED WITH DILAUDID 0.5 MG AND ATIVAN 2MG IVP PRN SEVERE AGITATION.
[2017-11-06] MEDS: MORPHINE SULFATE INJ 4 MG/ML DISP.SYRIN IV PRN (04:48)
[2017-11-06] MEDS: ACETAMINOPHEN 650 MG/20.3 ML UDC NG PRN ×2 (04:55→15:35)
[2017-11-06 05:10] LABS: CALCIUM, SERUM 8.5 mg/dL (8.5-10.1); CREATININE 1.3 mg/dL (0.6-1.3)
[2017-11-06] MEDS: FENTANYL CITRAT IV 2,500 MCG in IV NS 0.9% 200 ML IV PRN ×2 (05:33→16:40)
[2017-11-06] MEDS: VANCOMYCIN 1.25 GM in IV NS 0.9% 500 ML IV SCH ×2 (05:41→17:40)
[2017-11-06] MEDS: FIBERSOURCE HN 1,000 ML BOTTLE GT PRN (05:41)
--- NOTE | 2017-11-06 07:04 | NUR ---
WRINGER AND SETTER DF DECREASED FENTANYL DECREASED TO 225 MCG VERSED DECREASED TO 5MG/HR 2ND DECREASED BP AT 85/30, 89/30. BP NOW 97/44 REPORT GIVEN TO RN ISAK Meadows
--- NOTE | 2017-11-06 07:30 | NUR ---
MUTUAL FUND ACCOUNTANT: pt.is sedated with Versed gtt 5mg/h (max 10mg/h per report), Fentanyl gtt 225mcg/h (max 7mcg/kg/hr per report f/u MD order), will reevaluate Fentanyl order, pt is able to open eyes, no eyes contact, on wrists restraints, RR 36-38, able to bite ETT, O2 sat. 96-98%, grimacing, ABG done over night/no critical, ST 100-110, sbp 90-100, NGTF residual 30ml, keep HOB over 40, needs Ativan prn dose
--- NOTE | 2017-11-06 07:50 | NUR ---
[facility]: PICC white port is occluded
[2017-11-06] MEDS: PANTOPRAZOLE 40 MG VIAL IV SCH (08:06)
[2017-11-06] MEDS: FOLIC ACID 1 MG TABLET PO SCH (08:59)
[2017-11-06] MEDS: PAROXETINE HCL 20 MG TABLET NG SCH (08:59)
[2017-11-06] MEDS: THIAMINE HCL 100 MG TABLET PO SCH (08:59)
[2017-11-06] MEDS: LACTOBACILLUS RHAMNOSUS GG 1 EACH CAP.SPRINK GT SCH ×2 (08:59→16:53)
[2017-11-06] MEDS: PROSOURCE / PROSTAT (PYXIS) 30 ML UDC GT SCH (08:59)
[2017-11-06] MEDS: Z GUARD REMEDY 2 OZ OINT TP PRN (09:00)
--- NOTE | 2017-11-06 09:00 | NUR ---
LATHE TURNER: pt.was agitating, restless, strong arms/legs activity, bitting ETT, grimacing, RR 30-40, O2 sat. over 96%, Ativan 2mg, Dilaudid .5mg IV were given, increased Versed gtt to 7 mg/h, charge nurse updated
[2017-11-06] MEDS: Z GUARD REMEDY 2 OZ OINT TP SCH ×2 (09:02→21:02)
[2017-11-06] MEDS: ENOXAPARIN SODIUM 40 MG/0.4 ML DISP.SYRIN SQ SCH (09:02)
--- NOTE | 2017-11-06 09:30 | NUR ---
TUBE SIZER OPERATOR: pt.girlfriend called, spoke with charge nurse, updated re pt.current status, VS, POC. Spoke with [facility], pharmacist,verified Fentanyl order, now 2.5mcg/kg/h rate - 225mcg/h (pharmacy is aware), 22.1 ml/h, per order: max 7 mcg/kg/h
[2017-11-06 09:39] LABS: ABG BASE EXCESS 2.1 mmol/L; ABG PCO2 39.3 mmHg (35.0-45.0); ABG PH 7.443 (7.350-7.450); ABG PO2 95.4 mmHg (75.0-100.0); AaDO2 216.9 mmHg; COHb 0.3 % (0.5-1.5); MetHb 0.4 % (0.0-1.5); O2Hb 96.3 % (94.0-97.0); PEEP,BG 12 cm H2O; SITE, ABG Left Brachial; VT, ABG 500 mL
[2017-11-06] MEDS: POTASSIUM CHLORIDE 20 MEQ POWDER PACKET NG SCH ×3 (10:16→12:06)
--- NOTE | 2017-11-06 10:25 | NUR ---
HOME HEALTH CARE RESPIRATORY THERAPIST: pt.is agitating, restless again after suction, with open eyes, grimacing, coughing, able to bite ETT, RR 35-40, HR 110-120, ABG done/no critical values, Ativan 2mg IV given/q2h prn, increased Versed gtt to 8mg/h, Fentanyl to 3 mcg/kg/m - 267mcg/h (will s/w )
--- NOTE | 2017-11-06 10:30 | NUR ---
CIVIL ENGINEERING ASSISTANT: previous note correction: Fentanyl to 3 mcg/kg/Hr - 267mcg/h (will s/w to confirm ok for doses gtt over 200mcg/h)
--- NOTE | 2017-11-06 10:41 | NUR ---
COUNSELOR/ART THERAPIST: is in room, updated with pt.current condition, VS, sedation level/gtts rates, I/O, IVF, OGTF, labs, ABG, confirmed all same max doses for Fentanyl, Versed gtts, said: continue same IVF, see new orders
[2017-11-06] MEDS: MIDAZOLAM HCL 100 MG in IV NS 0.9% 80 ML IV PRN ×2 (11:03→21:01)
[2017-11-06] MEDS: LEVOFLOXACIN 750 MG /D5W 150ML 750 MG in PREMIX 1 EA IV SCH (13:58)
--- NOTE | 2017-11-06 14:00 | NUR ---
CHEMIC MANGLER: pt. is rest now, HR 98-106, BP WNL, O2 sat. over 96%, able to open eyes by touch, fentanyl gtt decreased to 2.5 mcg/kg/h (222 mcg/hr) f/u orders
--- NOTE | 2017-11-06 14:38 | NUR ---
MAT CUTTER: pt started restless, agitating with strong extremities activity, bitting ETT occas., grimacing after ETT suction, had BM, on 10 mg/h Versed gtt, 222 mcg/h Fentanyl gtt now, needs Ativan, Dilaudid prn doses
--- NOTE | 2017-11-06 16:02 | NUR ---
UX LEAD: pt.is rest and sedated well now, after Ativan 2mg, Dilaudid .5mg IV doses, HR down to 100-105, SBP 112, O2 sat. over 94%, no SOB/laboring, PM/skin/restraints care is done, skin is intact, T101.2/cooling measures initiated, will order BCx2, OGTF residual WNL,
--- NOTE | 2017-11-06 17:00 | NUR ---
MARKETING LIAISON: after suction and reposition pt. became to be very restless, agitated, ST up to 140, SBP up to 160, RR 30-40, O2 sat 93-96%, strong uncontrolled arms/legs activity, no any eyes contact/tracking, Ativan, Dilaudid PRN doses were given, getting Versed 10 mg/h, increased Fentanyl up to 4 mcg/kg/hr (350 mcg/h), Charge nurse, RT are updated, pt.has Benadryl prn
[2017-11-06] MEDS: diphenhydrAMINE HCL 50 MG/ML VIAL IV PRN ×2 (17:42→22:00)
--- NOTE | 2017-11-06 18:16 | NUR ---
TWISTING FRAME CHANGER: BCx2 order+ d/t T101.2 episode, Benadryl 50 mg IV given, same Versed, Fentanyl gtts rate, pt.is rest now, HR 110-115, O2 sat. 95%, SBP 132, RR 30-32
--- NOTE | 2017-11-06 21:38 | NUR ---
PT RECEIVED ON VENT VIA CHARTED SETTINGS AND ROUTE. ALARMS ARE SET AND FUNCTIONAL. DISCONNECT ALARMS CHECKED. INCREASED RR. AMBU BAG AT THE BEDSIDE. VENT PLUGGED INTO RED OUTLET. Addendum: 11/06/17 at 2139 by RUKHSANA ROTHMAN RT Amended: Links added.
[2017-11-06] MEDS: IV D5/0.45 NACL 1,000 ML IV PRN (23:16)
[2017-11-07] VITALS (56 sets, daily range): BP systolic 98–152; BP diastolic 47–80
[2017-11-07] MEDS: LORAZEPAM INJ 2 MG/ML VIAL IV PRN ×5 (00:10→23:27)
[2017-11-07] MEDS: HYDROMORPHONE INJ 0.5 MG/0.5 ML SYRINGE IV PRN ×4 (00:10→23:28)
[2017-11-07] MEDS: FENTANYL CITRAT IV 2,500 MCG in IV NS 0.9% 200 ML IV PRN ×4 (00:31→23:13)
[2017-11-07] MEDS: diphenhydrAMINE HCL 50 MG/ML VIAL IV PRN ×4 (04:02→23:50)
[2017-11-07 05:13] LABS: CALCIUM, SERUM 7.3 mg/dL (8.5-10.1); CREATININE 1.1 mg/dL (0.6-1.3); POTASSIUM 3.5 mmol/L (3.5-5.1)
[2017-11-07] MEDS: VANCOMYCIN 1.25 GM in IV NS 0.9% 500 ML IV SCH ×2 (05:31→18:25)
[2017-11-07] MEDS: PIPERACILLIN /TAZOBACTAM 4.5 G in IV D5W 50 ML IV SCH (05:31)
[2017-11-07] MEDS: FIBERSOURCE HN 1,000 ML BOTTLE GT PRN (05:55)
--- NOTE | 2017-11-07 06:56 | NUR ---
PREMIX CONCRETE BATCHER PT REMAINED ON VERSED AT 10 MG/HR AND FENTANYL 35 ML/HR; PT WITH INTERMITTENT EPISODES OF AGITATION AND MEDICATED WITH PRN ATIVAN/DILAUDI/BENADRYL NEEDED. ORAL CARE RENDERED. TURNED AND REPOSITIONED PT CONDITIONED ALLOWED. SIGNIFICANT OTHER UJ AT BEDSIDE LAST NIGHT; UPDATED ON PLAN OF CARE; VERBALIZED UNDERSTANDING.
[2017-11-07] MEDS: MIDAZOLAM HCL 100 MG in IV NS 0.9% 80 ML IV PRN ×2 (07:25→18:26)
[2017-11-07] MEDS: PANTOPRAZOLE 40 MG VIAL IV SCH (07:51)
--- NOTE | 2017-11-07 07:54 | NUR ---
COCOA BEAN CLEANER: pt.is sedated with Versed 10mg/h, Fentanyl 3.95mg/kg/h(350mcg/h), on wrists restraints, reactive by touch, arms/legs activity+, can open eyes for seconds, no eyes contact, no tachypnea now, T102.0/will apply cooling measures, OGTF residual WNL, ST 100-110, SBP over 100, O2 sat. over 96%, PEEP 12, FiO2 50%
[2017-11-07 08:02] LABS: ABG BASE EXCESS 3.3 mmol/L; ABG OXYGEN SATURATION 96.5 % (92.0-98.5); ABG PH 7.462 (7.350-7.450); ABG PO2 87.5 mmHg (75.0-100.0); AaDO2 225.1 mmHg; COHb 0.3 % (0.5-1.5); MetHb 0.5 % (0.0-1.5); O2Hb 95.7 % (94.0-97.0); PEEP,BG 12 cm H2O; SITE, ABG Right Radial; VENT MODE, BG AC 24; VT, ABG 500 mL
[2017-11-07] MEDS: Z GUARD REMEDY 2 OZ OINT TP SCH ×2 (08:42→20:57)
[2017-11-07] MEDS: PROSOURCE / PROSTAT (PYXIS) 30 ML UDC GT SCH (08:42)
--- NOTE | 2017-11-07 08:45 | NUR ---
HUMAN SERVICE SPECIALIST: is in room, notified re pt.status, VS, sedation gtts level, IVF, OGTF, ABG, I/O, vent.setting, high T episodes, orders
[2017-11-07] MEDS: PAROXETINE HCL 20 MG TABLET NG SCH (08:53)
[2017-11-07] MEDS: LACTOBACILLUS RHAMNOSUS GG 1 EACH CAP.SPRINK GT SCH ×2 (08:53→16:24)
[2017-11-07] MEDS: ACETAMINOPHEN 650 MG/20.3 ML UDC NG PRN ×3 (08:53→21:26)
[2017-11-07] MEDS: FOLIC ACID 1 MG TABLET PO SCH (08:53)
[2017-11-07] MEDS: THIAMINE HCL 100 MG TABLET PO SCH (08:53)
[2017-11-07] MEDS: ENOXAPARIN SODIUM 40 MG/0.4 ML DISP.SYRIN SQ SCH (09:00)
--- NOTE | 2017-11-07 09:25 | NUR ---
SCHOOL ATHLETIC DIRECTOR: T 103.0 now, all cooling measures were applied (ice bags, cooling machine blanket, Tylenol), pt.started after suction, reposition, to be restless, agitating, coughing, uncontrolled extremities activity, ST up 130, SBP 152, RR 37-42, has Ativan 2mg, Dilaudid .5mg q2h PRN
--- NOTE | 2017-11-07 09:45 | NUR ---
SPECIAL EDUCATION AIDE: [facility], pharmacist is in room, updated with pt.current condition, sedation level, Versed gtt rate: max dose 10 mg/hr, Fentanyl 4mcg/kg/hr - 350 mcg/h, Ativan, Dilaudid, Benadryl PRN doses, T 103, Atbxs, see new orders
--- NOTE | 2017-11-07 09:47 | NUR ---
PT RECEIVED ON VENT VIA CHARTED SETTINGS WITH PROPERLY SECURED ETT. ALARMS ARE SET AND FUNCTIONAL. . NO DISTRESS NOTED AMBU BAG AT BEDSIDE. VENT PLUGGED INTO RED OUTLET. NO DISTRESS NOTED. Addendum: 11/07/17 at 0948 by ANTHONY WYLIE RT Amended: Links added.
--- NOTE | 2017-11-07 10:10 | NUR ---
RADIO EQUIPMENT REPAIRER: is in room, updated with pt.current condition, ABG, VS, all above gtts sedation level, vent.setting, suction amount, neuro status, agitation reactions, meds, IVF, OGTF, I/O, orders
--- NOTE | 2017-11-07 10:45 | NUR ---
PHOTO FINISHER: is in room, updated with pt.current condition, VS, sedation gtts level with rate: Versed 10mg/hr, Fentanyl 350mcg/hr, multiple agitation restless distress episodes with Ativan, Dilaudid, Benadryl PRN doses, ABG, vent setting/peep12, Atbxs, I/O, OGTF, IVF, CXR, T 103.0 episode/cooling measures, see new orders
[2017-11-07] MEDS: PIPERACILLIN /TAZOBACTAM 4.5 G in IV NS 0.9% 50 ML IV SCH ×3 (11:39→23:02)
[2017-11-07] MEDS: LEVOFLOXACIN 750 MG /D5W 150ML 750 MG in PREMIX 1 EA IV SCH (13:42)
--- NOTE | 2017-11-07 14:00 | NUR ---
YIELD ENGINEER: OGTF residual is 110ml, hold OGTF for 2hrs, HOB over 40
--- NOTE | 2017-11-07 14:00 | NUR ---
MATERIAL HANDLING TECHNICIAN: pt. is rest , sedated well with same Versed, Fentanyl gtts now, reactive by touch, SR 87-95, SBP 100-115, O2 sat. over 96%, suctioned with thick large secretion amount, T 100.0/continue cooling measures
--- NOTE | 2017-11-07 15:15 | NUR ---
PAINT SPRAY INSPECTOR: Mary Ellen, pt.girlfriend called/updated with pt.current condition, VS, MDs visits
--- NOTE | 2017-11-07 15:45 | NUR ---
RT NOTE: PATIENT RECEIVED ORALLY INTUBATED WITH 7.5 ETT SECURED AT 24 CM MID LIP LINE. ETT MOVED FROM LEFT TO RIGHT SIDE OF THE MOUTH VIA ANCHOR FAST. VENT SETTINGS PER MD ORDER. VENT ALARMS VERIFIED AND AUDIBLE. SUCTIONED AND LAVAGED MOD-LARGE AMOUNTS OF THICK WHITE SECRETIONS. VENT PLUGGED INTO RED OUTLET. AMBU BAG AT [facility].
--- NOTE | 2017-11-07 17:30 | NUR ---
MOTOR DRIVER: SR 85-92, O2 sat. 96-100%, SBP 100, RR 26-28, pt.is rest/sedated/reactive for suction, light pain stimuli, will titrate Fentanyl, Versed gtts, T down to 98.8, OGT residual was 60ml at 16.15, resumed OGTF, keep HOB over 35, PM/bath care is done, skin is intact
--- NOTE | 2017-11-07 19:30 | NUR ---
RN INITIAL NOTES RECEIVED THE PATIENT SEDATED ON BED, ON VERSED 8MG/HR AND FENTANYL 250 MCG/HR, EASILY AROUSABLE TO PAIN/DISCOMFORT. ON VENT WITH SETTINGS AC 24, TV 500, FIO2 50% PEEP 12, ETT 7.5/24@LIP, SATURATING WELL, NO S/S OF RESP DISTRESS. SR ON THE MONITOR, HR 80'S. OG ON FIBERSOURCE FEEDING @ 60MLS/HR, WITH 30MLS RESIDUALS. [facility] CATH INTACT. RIGHT AC AND RIGHT UPPER ARM PICC WITH D5 1/2NS @ 50MLS/HR, FLUSHED AND PATENT (EXCEPT ONE OCCLUDED WHITE PORT), NO S/S OF INFILTRATION/INFECTION, DRESSINGS CDI. BED LOW AND LOCKED, SIDERAILS UP, BILATERAL WRIST RESTRAINTS IN PLACE FOR SAFETY, BED ALARM ON. WILL CONTINUE TO MONITOR
[2017-11-07] MEDS: Z GUARD REMEDY 2 OZ OINT TP PRN (20:23)
--- NOTE | 2017-11-07 20:37 | NUR ---
RN NOTES PT AWAKE AND AGITATED UPON SUCTIONING. PT STARTED KICKING PILLOWS OFF THE BED AND PULLING ON HIS WRIST RESTRAINTS. PT UNABLE TO COMPREHEND AND FOLLOW COMMANDS. ADMINISTERED PRN ATIVAN 2MG AND PRN BENADRYL 50MG FOR AGITATION.
[2017-11-07] MEDS: IV D5/0.45 NACL 1,000 ML IV PRN (23:02)
[2017-11-08] VITALS (38 sets, daily range): BP systolic 93–167; BP diastolic 45–90
[2017-11-08] MEDS: HYDROMORPHONE INJ 0.5 MG/0.5 ML SYRINGE IV PRN ×6 (03:08→21:07)
[2017-11-08] MEDS: LORAZEPAM INJ 2 MG/ML VIAL IV PRN ×6 (03:08→21:07)
--- NOTE | 2017-11-08 03:15 | NUR ---
RN NOTES PT IS AWAKE AND AGITATED. PRN ATIVAN 2MG, PRN DILAUDID 0.5MG, AND PRN BENADRYL 50MG ARE GIVEN TO HELP WITH SEDATION. WILL ALSO INCREASE VERSED AND FENTANYL DRIPS NEEDED.
[2017-11-08] MEDS: ACETAMINOPHEN 650 MG/20.3 ML UDC NG PRN ×2 (03:16→12:12)
[2017-11-08] MEDS: diphenhydrAMINE HCL 50 MG/ML VIAL IV PRN ×4 (03:16→21:40)
--- NOTE | 2017-11-08 04:00 | NUR ---
RN NOTES PATIENT RECTAL TEMP 103.3, COOLING MEASURES IN PLACE. WILL ADMINISTER TYLENOL SUPPOSITORY 650MG
[2017-11-08] MEDS ORDERED: ACETAMINOPHEN 650 MG/SUPP.RECT RC ONE (04:16)
[2017-11-08] MEDS: ACETAMINOPHEN 650 MG/SUPP.RECT RC PRN ×2 (04:28→19:23)
[2017-11-08] MEDS ORDERED: ACETAMINOPHEN 325 MG/SUPP.RECT RC PRN ×2 (04:30)
[2017-11-08] MEDS: MIDAZOLAM HCL 100 MG in IV NS 0.9% 80 ML IV PRN ×2 (05:00→14:54)
[2017-11-08] MEDS: FIBERSOURCE HN 1,000 ML BOTTLE GT PRN (05:05)
[2017-11-08] MEDS: PIPERACILLIN /TAZOBACTAM 4.5 G in IV NS 0.9% 50 ML IV SCH ×4 (05:05→23:56)
[2017-11-08 05:19] LABS: CALCIUM, SERUM 7.2 mg/dL (8.5-10.1); POTASSIUM 3.6 mmol/L (3.5-5.1)
[2017-11-08] MEDS: VANCOMYCIN 1.25 GM in IV NS 0.9% 500 ML IV SCH ×2 (05:46→17:56)
[2017-11-08] MEDS: FENTANYL CITRAT IV 2,500 MCG in IV NS 0.9% 200 ML IV PRN ×4 (06:01→22:29)
--- NOTE | 2017-11-08 06:30 | NUR ---
RN CLOSING NOTES PT REMAINS STABLE OF THE MOMENT. SEDATED WITH VERSED 10MG/HR AND FENTANYL 300MCG/HG(30MLS/HR). RECTAL TEMP IS CONTINUOUSLY DECREASING, CURRENTLY @ 100.8, COOLING MEASURES REMAIN IN PLACE. ALL DUE MEDS GIVEN, AM CARE PROVIDED. WILL ENDORSE PILO TO AM RN
[2017-11-08] MEDS: PROSOURCE / PROSTAT (PYXIS) 30 ML UDC GT SCH (08:09)
[2017-11-08] MEDS: Z GUARD REMEDY 2 OZ OINT TP SCH ×2 (08:09→21:06)
[2017-11-08] MEDS: FOLIC ACID 1 MG TABLET PO SCH (08:09)
[2017-11-08] MEDS: LACTOBACILLUS RHAMNOSUS GG 1 EACH CAP.SPRINK GT SCH ×2 (08:09→16:06)
[2017-11-08] MEDS: PAROXETINE HCL 20 MG TABLET NG SCH (08:09)
[2017-11-08] MEDS: THIAMINE HCL 100 MG TABLET PO SCH (08:09)
[2017-11-08] MEDS: PANTOPRAZOLE 40 MG VIAL IV SCH (08:09)
[2017-11-08] MEDS: ENOXAPARIN SODIUM 40 MG/0.4 ML DISP.SYRIN SQ SCH (08:10)
--- NOTE | 2017-11-08 08:31 | NUR ---
ICU/RN - Notes Pt awake and agitated with eyes open and facial grimacing, biting down ET tube, and flailing extremities. Change in vital signs with an inncrease in HR to 97, and tachypneic with RR 29. Dilaudid and Ativan IVP administered in attempt to reduce agitation. Will continue to monitor.
--- NOTE | 2017-11-08 09:21 | NUR ---
ICU/RN - Notes Pt remains agitated, does not follow commands, attempting to break out of bilateral soft wrist restraints. Benadryl IVP administered in attempt to reduce agitation. Versed gtt already at max dose. Fentanyl gtt titrated up. Pt's gabriella Hyde at bedside, with updates provided.
[2017-11-08 10:22] LABS: ABG BASE EXCESS 1.8 mmol/L; ABG OXYGEN SATURATION 96.6 % (92.0-98.5); ABG PCO2 43.9 mmHg (35.0-45.0); ABG PH 7.404 (7.350-7.450); AaDO2 214.1 mmHg; COHb 0.3 % (0.5-1.5); MetHb 0.5 % (0.0-1.5); O2Hb 95.8 % (94.0-97.0); PEEP,BG 12 cm H2O; SITE, ABG Right Radial; VT, ABG 500 mL
--- NOTE | 2017-11-08 12:05 | NUR ---
ICU/RN - Notes Pt awake and agitated with eyes open and facial grimacing, biting down ET tube, and flailing extremities. Change in vital signs tachycardic and tachypneic. Dilaudid and Ativan IVP administered in attempt to reduce agitation. Will continue to monitor.
[2017-11-08] MEDS: LEVOFLOXACIN 750 MG /D5W 150ML 750 MG in PREMIX 1 EA IV SCH (13:37)
--- NOTE | 2017-11-08 16:54 | NUR ---
ICU/RN - Notes Pt not tolerating tube feeding at this time, with gastric residual ~200mL. Per Dr Winters, hold tube feeding until residual gone, then after 1 hour restart @ 30 ml/hr. Reglan also ordered. Will carry out MD orders.
[2017-11-08] MEDS: METOCLOPRAMIDE HCL 10 MG/2 ML VIAL IV SCH (17:00)
[2017-11-08] MEDS ORDERED: METOCLOPRAMIDE HCL 10 MG/10 ML UDC PO SCH (17:30)
[2017-11-08] MEDS: METOCLOPRAMIDE HCL 10 MG/10 ML UDC PO SCH (17:56)
--- NOTE | 2017-11-08 18:30 | NUR ---
ICU/RN - Notes Pt awake and agitated with eyes open and facial grimacing, biting down ET tube, and flailing extremities. Change in vital signs tachycardic and tachypneic. Dilaudid and Ativan IVP administered in attempt to reduce agitation. Fentanyl gtt titrated up. Will continue to monitor.
--- NOTE | 2017-11-08 19:30 | NUR ---
RN INITIAL NOTES RECEIVED THE PATIENT AWAKE ON BED, ON VERSED 10MG/HR AND FENTANYL 600 MCG/HR (600MLS/HR), STILL AGITATED. ON VENT WITH SETTINGS AC 24, TV 500, FIO2 50% PEEP 10, ETT 7.5/24@LIP, SATURATING WELL, NO S/S OF RESP DISTRESS. PT HAS CURRENT TEMP OF 102, WILL PROVIDE COOLING MEASURES AND TYLENOL SUPPOSITORY. ST ON THE MONITOR, HR 120'S. OG IS CLAMPED, WITH 150MLS RESIDUALS. [facility] CATH INTACT. RIGHT AC AND RIGHT UPPER ARM PICC WITH D5 1/2NS @ 50MLS/HR, FLUSHED AND PATENT (EXCEPT ONE OCCLUDED WHITE PORT), NO S/S OF INFILTRATION/INFECTION, DRESSINGS CDI. BED LOW AND LOCKED, SIDERAILS UP, BILATERAL WRIST RESTRAINTS IN PLACE FOR SAFETY, BED ALARM ON. WILL CONTINUE TO MONITOR
--- NOTE | 2017-11-08 19:35 | NUR ---
PATIENT RECEIVED ORALLY INTUBATED WITH 7.5 ETT SECURED AT 24 CM MID LIP LINE. VENT SETTINGS PER MD ORDER. VENT ALARMS VERIFIED AND AUDIBLE. SUCTIONED AND LAVAGED MOD-LARGE AMOUNTS OF THICK WHITE SECRETIONS. VENT PLUGGED INTO RED OUTLET. AMBU BAG AT HOB. Addendum: 11/08/17 at 1936 by MARY HUTTON RT Amended: Links added.
[2017-11-08] MEDS: IV D5/0.45 NACL 1,000 ML IV PRN (21:08)
[2017-11-09] VITALS (78 sets, daily range): BP systolic 79–176; BP diastolic 22–102
--- NOTE | 2017-11-09 | NUR ---
RN NOTES RESUMED GTUBE FEEDING OF FIBERSOURCE @ 30MLS/HR. WILL RECHECK RESIDUALS
[2017-11-09] MEDS: LORAZEPAM INJ 2 MG/ML VIAL IV PRN ×6 (00:03→15:59)
[2017-11-09] MEDS: HYDROMORPHONE INJ 0.5 MG/0.5 ML SYRINGE IV PRN ×4 (00:04→08:13)
[2017-11-09] MEDS: ACETAMINOPHEN 650 MG/SUPP.RECT RC PRN (00:41)
[2017-11-09] MEDS: METOCLOPRAMIDE HCL 10 MG/2 ML VIAL IV SCH ×3 (00:41→16:00)
[2017-11-09] MEDS: MIDAZOLAM HCL 100 MG in IV NS 0.9% 80 ML IV PRN ×2 (00:56→10:35)
[2017-11-09] MEDS: METOCLOPRAMIDE HCL 10 MG/10 ML UDC PO SCH ×3 (01:04→18:16)
[2017-11-09] MEDS: diphenhydrAMINE HCL 50 MG/ML VIAL IV PRN ×2 (01:04→06:21)
[2017-11-09] MEDS: FENTANYL CITRAT IV 2,500 MCG in IV NS 0.9% 200 ML IV PRN ×5 (01:52→19:39)
[2017-11-09] MEDS: PIPERACILLIN /TAZOBACTAM 4.5 G in IV NS 0.9% 50 ML IV SCH ×3 (05:13→17:05)
[2017-11-09] MEDS: VANCOMYCIN 1.25 GM in IV NS 0.9% 500 ML IV SCH ×2 (05:39→18:16)
[2017-11-09 05:44] LABS: CREATININE 0.8 mg/dL (0.6-1.3)
--- NOTE | 2017-11-09 06:30 | NUR ---
RN CLOSING NOTES PT IS CURRENTLY AGITATED WITH VERSED @ 10MG/HR AND FENTANYL 600MCG/HR(60MLS/HR). PRN ATIVAN, PRN BENADRYL, AND PRN DILAUDID HAVE ALSO BEEN GIVEN. AM CARE PROVIDED. WILL ENDORSE PILO TO AM RN
[2017-11-09] MEDS: MORPHINE SULFATE INJ 4 MG/ML DISP.SYRIN IV PRN ×2 (07:29→15:06)
[2017-11-09] MEDS: FOLIC ACID 1 MG TABLET PO SCH (08:12)
[2017-11-09] MEDS: PAROXETINE HCL 20 MG TABLET NG SCH (08:12)
[2017-11-09] MEDS: LACTOBACILLUS RHAMNOSUS GG 1 EACH CAP.SPRINK GT SCH ×2 (08:12→16:00)
[2017-11-09] MEDS: PANTOPRAZOLE 40 MG VIAL IV SCH (08:12)
[2017-11-09] MEDS: Z GUARD REMEDY 2 OZ OINT TP SCH ×2 (08:13→21:01)
[2017-11-09] MEDS: THIAMINE HCL 100 MG TABLET PO SCH (08:13)
[2017-11-09] MEDS: PROSOURCE / PROSTAT (PYXIS) 30 ML UDC GT SCH (08:14)
[2017-11-09] MEDS: ENOXAPARIN SODIUM 40 MG/0.4 ML DISP.SYRIN SQ SCH (08:14)
--- NOTE | 2017-11-09 09:00 | NUR ---
ICU/RN - Notes Pt dangerously agitated while maxed out on Fentanyl gtt and Versed gtt, even after PRN Ativan, Dilaudid, Benadryl, Morphine given. Pt does not follow commands, tachycardic/tachypneic/desaturating, flailing extremities and attempting to get out of restraints. Dr Raza made aware of pt's severe agitation despite many attempts to sedate pt. Per Dr Raza, restart patient on Diprivan gtt, titrate down Versed gtt to off (as tolerated), and keep pt on Fentanyl gtt for sedation. Pt's fiance at bedside with updates provided.
[2017-11-09] MEDS: PROPOFOL 100 ML IV PRN ×7 (09:06→23:19)
--- NOTE | 2017-11-09 11:00 | NUR ---
ICU/RN - Notes Sedation titrated to keep pt less agitated. When pt not sedated effectively, pt noted with respiratory distress, tachycardic, tachypneic, and desaturation.
[2017-11-09] MEDS: NOREPINEPHRINE 16 MG in IV D5W 500 ML IV PRN (12:46)
[2017-11-09] MEDS: LEVOFLOXACIN 750 MG /D5W 150ML 750 MG in PREMIX 1 EA IV SCH (13:15)
[2017-11-09] MEDS: FIBERSOURCE HN 1,000 ML BOTTLE GT PRN (15:21)
[2017-11-09] MEDS: ACETAMINOPHEN 650 MG/20.3 ML UDC NG PRN (15:59)
--- NOTE | 2017-11-09 18:00 | NUR ---
ICU/RN - Notes Versed gtt titrated off. Pt appears comfortable and adequately sedated on Diprivan gtt and Fentanyl gtt. No acute respiratory distress at this time.
--- NOTE | 2017-11-09 19:10 | NUR ---
RN INITIAL NOTES RECEIVED THE PATIENT CALM AND SEDATED ON PROPOFOL @ 90MCG/KG/MIN AND FENTANYL @ 600MCG/HR(60MLS/HR). INTUBATED AND ON VENT WITH SETTINGS AC 24, TV 500, FIO2 60% AND PEEP 12, SATURATING WELL, NO S/S OF RESP DISTRESS. CURRENTLY SR ON THE MONITOR, HR 60-70'S. ON LEVO DRIP @ 3MCG/MIN TO KEEP SBP > 90. OGT ON FEEDING OF FIBERSOURCE @ 30MLS/HR, NO RESIDUALS, TOLERATING WELL. [facility] CATH INTACT. RIGHT UPPER ARM PICC WITH D5 1/2NS @ 50MLS/HR, FLUSHED AND PATENT, NO S/S OF INFILTRATION/INFECTION, DRESSING CDI. BED LOW AND LOCKED, SIDERAILS UP, BED ALARM ON, BILATERAL WRIST RESTRAINTS IN PLACE FOR SAFETY. WILL CONTINUE TO MONITOR
[2017-11-09] MEDS: MEROPENEM 500 MG in IV NS 0.9% 50 ML IV SCH (21:00)
--- NOTE | 2017-11-09 21:23 | NUR ---
PT RECEIVED ON VENT VIA CHARTED SETTINGS AND ROUTE. ALARMS ARE SET AND FUNCTIONAL. DISCONNECT ALARMS CHECKED. PT TOLERATING VENT SETTINGS. AMBU BAG AT THE BEDSIDE. VENT PLUGGED INTO RED OUTLET. Addendum: 11/09/17 at 2124 by RUKHSANA ROTHMAN RT Amended: Links added.
[2017-11-10] VITALS (91 sets, daily range): BP systolic 81–164; BP diastolic 37–91
[2017-11-10] MEDS: METOCLOPRAMIDE HCL 10 MG/2 ML VIAL IV SCH ×3 (00:05→16:26)
[2017-11-10] MEDS: FENTANYL CITRAT IV 2,500 MCG in IV NS 0.9% 200 ML IV PRN ×5 (00:05→20:21)
[2017-11-10] MEDS: LORAZEPAM INJ 2 MG/ML VIAL IV PRN ×4 (01:24→22:20)
[2017-11-10] MEDS: PROPOFOL 100 ML IV PRN ×7 (01:28→14:15)
[2017-11-10] MEDS: METOCLOPRAMIDE HCL 10 MG/10 ML UDC PO SCH ×3 (01:37→17:23)
[2017-11-10] MEDS: ACETAMINOPHEN 650 MG/20.3 ML UDC NG PRN ×3 (01:37→23:17)
[2017-11-10] MEDS: IV D5/0.45 NACL 1,000 ML IV PRN (02:41)
[2017-11-10] MEDS: MEROPENEM 500 MG in IV NS 0.9% 50 ML IV SCH ×3 (04:03→21:14)
[2017-11-10 05:06] LABS: BASOPHILS # (AUTO) 0.1 /CMM (0.0-0.2); BASOPHILS % (AUTO) 1.4 % (0.0-2.0); EOSINOPHILS # (AUTO) 0.2 /CMM (0.0-0.7); EOSINOPHILS % (AUTO) 2.3 % (0.0-6.0); HEMATOCRIT 25 % (39-51); HEMOGLOBIN 8.7 g/dL (13.5-17.5); LYMPHOCYTES # (AUTO) 0.9 /CMM (0.8-4.8); LYMPHOCYTES % (AUTO) 8.9 % (20.0-44.0); MEAN CORPUSCULAR HEMOGLOBIN 33 PG (26.0-33.0); MEAN CORPUSCULAR HGB CONC 35 g/dl (31.0-36.0); MEAN CORPUSCULAR VOLUME 95 fL (80-96); MONOCYTES # (AUTO) 0.3 /CMM (0.1-1.30); MONOCYTES % (AUTO) 3.3 % (2.0-12.0); NEUTROPHILS # (AUTO) 8.3 /CMM (1.8-8.9); NEUTROPHILS % (AUTO) 84.1 % (43.0-81.0); PLATELET COUNT (AUTO) 184 /CMM (150-450); RDW COEFFICIENT OF VARIATION 13.4 (11.5-15.0); RED BLOOD CELL COUNT(AUTO) 2.62 MIL/uL (4.5-6.0); WHITE BLOOD COUNT (AUTO) 9.8 K/uL (4.3-11.0)
[2017-11-10] MEDS: VANCOMYCIN 1.25 GM in IV NS 0.9% 500 ML IV SCH (05:15)
[2017-11-10 05:29] LABS: CALCIUM, SERUM 7.4 mg/dL (8.5-10.1); MAGNESIUM 2.1 mg/dL (1.8-2.4); PHOSPHORUS 2.5 mg/dL (2.5-4.9); POTASSIUM 3.2 mmol/L (3.5-5.1)
--- NOTE | 2017-11-10 06:00 | NUR ---
RN CLOSING NOTES PT REMAINS STABLE OF THE MOMENT. SEDATED WITH DIPRIVAN @ 90MCG/KG/MIN AND FENTANYL @ 500MCG/HR(50MLS/HR). STILL ON LEVO @ 3MCG/MIN. ALL OTHER DUE MEDS GIVEN, AM CARE PROVIDED. WILL ENDORSE PILO TO AM RN
--- NOTE | 2017-11-10 07:43 | NUR ---
RT PT RECEIVED ORALLY INTUBATED WITH A 7.5 ETT SECURED AT 24CM AT THE LIP LINE. PT IS ON THE VENT WITH NOTED SETTINGS. VENT ALARMS ARE SET AND AUDIBLE WITH BVM BY BEDSIDE. MAINTENANCE AND CUSTODIAN SUPERVISOR CUFF PRESSURE NOTED. NO RESPIRATORY DISTRESS NOTED AT THIS TIME, WILL CONTINUE TO MONITOR. Addendum: 11/10/17 at 0944 by TEMO HARRY RT Amended: Links added.
[2017-11-10 08:06] LABS: ABG BASE EXCESS 7.2 mmol/L; ABG OXYGEN SATURATION 94.6 % (92.0-98.5); ABG PCO2 52.7 mmHg (35.0-45.0); ABG PH 7.413 (7.350-7.450); ABG PO2 75.5 mmHg (75.0-100.0); AaDO2 294.3 mmHg; COHb 0.3 % (0.5-1.5); MetHb 0.7 % (0.0-1.5); O2Hb 93.7 % (94.0-97.0); PEEP,BG 12 cm H2O; SITE, ABG Left Radial; VT, ABG 500 mL
[2017-11-10] MEDS: PROSOURCE / PROSTAT (PYXIS) 30 ML UDC GT SCH (08:11)
[2017-11-10] MEDS: FOLIC ACID 1 MG TABLET PO SCH (08:11)
[2017-11-10] MEDS: THIAMINE HCL 100 MG TABLET PO SCH (08:11)
[2017-11-10] MEDS: PANTOPRAZOLE 40 MG VIAL IV SCH (08:11)
[2017-11-10] MEDS: PAROXETINE HCL 20 MG TABLET NG SCH (08:11)
[2017-11-10] MEDS: LACTOBACILLUS RHAMNOSUS GG 1 EACH CAP.SPRINK GT SCH ×2 (08:11→16:00)
[2017-11-10] MEDS: Z GUARD REMEDY 2 OZ OINT TP SCH ×2 (08:12→21:14)
[2017-11-10] MEDS: ENOXAPARIN SODIUM 40 MG/0.4 ML DISP.SYRIN SQ SCH (08:13)
--- NOTE | 2017-11-10 09:00 | NUR ---
ICU/RN - Notes Triglyceride level reported to Dr Raza. Per Dr Raza, start patient on Morphine gtt, restart Versed gtt, and resume Fentanyl gtt, with Diprivan gtt to titrate off. Will carry out MD order.
[2017-11-10] MEDS: MIDAZOLAM HCL 100 MG in IV NS 0.9% 80 ML IV PRN ×2 (12:19→22:04)
[2017-11-10] MEDS ORDERED: IV NS 0.9% 250 ML IV PRN (12:30)
[2017-11-10] MEDS: POTASSIUM CL. PREMIX PERIPHER. 50 ML IV SCH ×4 (13:15→16:26)
[2017-11-10] MEDS: IV NS 0.9% 100 ML IV PRN (14:36)
[2017-11-10] MEDS: FIBERSOURCE HN 1,000 ML BOTTLE GT PRN (14:41)
[2017-11-10] MEDS: NOREPINEPHRINE 16 MG in IV D5W 500 ML IV PRN (15:40)
--- NOTE | 2017-11-10 16:06 | NUR ---
ICU/RN - Notes Pt awake and agitated with eyes open and facial grimacing, biting down ET tube, and flailing extremities. Change in vital signs with an increase in HR, and tachypneic. Ativan IVP administered in attempt to reduce agitation. Bilateral soft wrist restraints on for safety. Will continue to monitor.
[2017-11-10] MEDS: VANCOMYCIN 1.25 GM in IV D5W 500 ML IV SCH (16:26)
--- NOTE | 2017-11-10 17:00 | NUR ---
ICU/RN - Notes Diprivan gtt titrated off per MD order. Pt currently on Fentanyl gtt, Morphien gtt, and Versed gtt.
[2017-11-10] MEDS: HYDROMORPHONE INJ 0.5 MG/0.5 ML SYRINGE IV PRN ×2 (18:10→22:21)
[2017-11-10] MEDS: MORPHINE SULFATE INJ 4 MG/ML DISP.SYRIN IV PRN ×2 (18:35→23:18)
[2017-11-10] MEDS: diphenhydrAMINE HCL 50 MG/ML VIAL IV PRN ×2 (18:35→23:17)
--- NOTE | 2017-11-10 18:35 | NUR ---
ICU/RN - Notes Pt awake and agitated with eyes open and facial grimacing, biting down ET tube, and flailing extremities. Change in vital signs with an increase in HR, and tachypneic. Morphine and Benadryl IVP administered in attempt to reduce agitation. Will continue to monitor.
--- NOTE | 2017-11-10 19:40 | NUR ---
PT. RECEIVED ON VENT SUPPORT VIA ET TUBE WITH PARAMETERS BELLOW ORDER: AC 24 VT 500ML FIO2 60% PEEP +12 B/S DIMINISHED + WHEEZING BILATERAL. VENT. PLUGGED INTO RED OUTLET WITH ALARMS ON AND FUNCTIONING. TRI BAG @ HOB. Addendum: 11/10/17 at 2043 by KAE ROBERTS RT Amended: Links added.
--- NOTE | 2017-11-10 22:20 | NUR ---
special education curriculum specialist; Pt awake and agitated with eyes open and facial grimacing, biting down ET tube, and flailing extremities. Change in vital signs with an increase in HR, and tachypneic. Dilaudid and Ativan IVP administered in attempt to decrease agitation and pain. Keep monitoring...
--- NOTE | 2017-11-10 23:23 | NUR ---
PRINCIPAL CLERK; PATIENT VERY RESTLESS, MOVING AROUND, AGITATING, MORPHINE 4MG, BENADRYL 50 MG IV GIVEN. PATIENT IS STILL AWAKE, ALERT,AGITATED, WITH MAXIMUM SEDATION VERSED 10 MG/HR, FENTANYL 7 MCG/KG/HR AND MORPHINE 15 MG/HR. DILAUDID 0.5 MG AND ATIVAN 2 MG IV GIVEN EARLIER FOR AGITATION AND PAIN MANAGEMENT. BILATERAL WRIST SOFT RESTRAINT ON FOR SAFETY REASON. TEMP 100.5, TYLENOL 650 MG GIVEN VIA OGT. KEEP MONITORING..
[2017-11-11] VITALS (35 sets, daily range): BP systolic 95–151; BP diastolic 46–87
[2017-11-11] MEDS: VANCOMYCIN 1.25 GM in IV D5W 500 ML IV SCH ×4 (00:02→23:45)
[2017-11-11] MEDS: METOCLOPRAMIDE HCL 10 MG/2 ML VIAL IV SCH ×4 (00:06→23:59)
[2017-11-11] MEDS: FENTANYL CITRAT IV 2,500 MCG in IV NS 0.9% 200 ML IV PRN ×6 (00:21→21:16)
[2017-11-11] MEDS: METOCLOPRAMIDE HCL 10 MG/10 ML UDC PO SCH ×3 (01:39→16:58)
[2017-11-11] MEDS: HYDROMORPHONE INJ 0.5 MG/0.5 ML SYRINGE IV PRN ×2 (04:08→12:47)
[2017-11-11] MEDS: LORAZEPAM INJ 2 MG/ML VIAL IV PRN ×3 (04:08→16:03)
--- NOTE | 2017-11-11 04:15 | NUR ---
curriculum director; Pt awake and agitated with eyes open and facial grimacing, biting down ET tube, and flailing extremities. Change in vital signs with an increase in HR, and tachypneic. Dilaudid and Ativan IVP administered in attempt to decrease agitation and pain. Keep monitoring...
[2017-11-11] MEDS: MEROPENEM 500 MG in IV NS 0.9% 50 ML IV SCH ×3 (04:39→20:13)
[2017-11-11] MEDS: diphenhydrAMINE HCL 50 MG/ML VIAL IV PRN ×4 (04:51→20:13)
[2017-11-11] MEDS: MORPHINE SULFATE INJ 4 MG/ML DISP.SYRIN IV PRN (04:51)
--- NOTE | 2017-11-11 04:55 | NUR ---
PATENT LEATHER SORTER: PT STILL VERY AGITATING, FACIAL GRIMACING, TACHYPNEIC, TACHYCARDIAC, SWEATING, EXTREMELY MOVING IN BED, MORPHINE 4 MG AND BENADRYL 50 MG IV GIVEN. KEEP MONITORING...
[2017-11-11 05:25] LABS: BASOPHILS % (AUTO) 0.7 % (0.0-2.0); EOSINOPHILS # (AUTO) 0.2 /CMM (0.0-0.7); EOSINOPHILS % (AUTO) 2.5 % (0.0-6.0); HEMATOCRIT 24 % (39-51); HEMOGLOBIN 8.2 g/dL (13.5-17.5); LYMPHOCYTES # (AUTO) 1.1 /CMM (0.8-4.8); LYMPHOCYTES % (AUTO) 15.3 % (20.0-44.0); MEAN CORPUSCULAR HEMOGLOBIN 33 PG (26.0-33.0); MEAN CORPUSCULAR HGB CONC 35 g/dl (31.0-36.0); MEAN CORPUSCULAR VOLUME 96 fL (80-96); MONOCYTES # (AUTO) 0.3 /CMM (0.1-1.30); MONOCYTES % (AUTO) 4.3 % (2.0-12.0); NEUTROPHILS # (AUTO) 5.3 /CMM (1.8-8.9); NEUTROPHILS % (AUTO) 77.2 % (43.0-81.0); PLATELET COUNT (AUTO) 231 /CMM (150-450); RDW COEFFICIENT OF VARIATION 13.7 (11.5-15.0); RED BLOOD CELL COUNT(AUTO) 2.48 MIL/uL (4.5-6.0); WHITE BLOOD COUNT (AUTO) 6.9 K/uL (4.3-11.0)
[2017-11-11 05:43] LABS: CALCIUM, SERUM 7.7 mg/dL (8.5-10.1); CREATININE 0.8 mg/dL (0.6-1.3); MAGNESIUM 2.2 mg/dL (1.8-2.4); PHOSPHORUS 3.8 mg/dL (2.5-4.9); POTASSIUM 3.5 mmol/L (3.5-5.1)
[2017-11-11] MEDS: IV NS 0.9% 100 ML IV PRN ×2 (06:12→17:58)
--- NOTE | 2017-11-11 07:00 | NUR ---
icu initial note- received pt sedated but arousable, pt moves all extremities freely, pt is unable to track at this time, pt is intubated 7.5 lipline ac 24 tv 500 fio2 60% peep 12, sating well, no s/s of resp.distress or sob noted at this time, pt is on bedside monitor showing st 100's, no s/s of chest pain or discomfort noted, pt has ogt, c/d/i/patent, flushing well, running fibersource@60ml/hr, tolerating well, minimal residuals noted, pt has bilateral wrist restraints in place, skin check completed, rom performed, released and replaced for pt safety, pt has parul picc line, c/d/i/patent, flushing well,running tko @5ml/hr, versed @10mg/hr, fentanyl@62ml/hr, morphine@15mg/hr, f/c draining yellow urine to gravity, all safety measures in place at all times, call light within easy reach, will monitor pt closely for changes
[2017-11-11] MEDS: MIDAZOLAM HCL 100 MG in IV NS 0.9% 80 ML IV PRN ×3 (08:12→22:37)
[2017-11-11] MEDS: PANTOPRAZOLE 40 MG VIAL IV SCH (08:36)
[2017-11-11] MEDS: THIAMINE HCL 100 MG TABLET PO SCH (08:36)
[2017-11-11] MEDS: FOLIC ACID 1 MG TABLET PO SCH (08:36)
[2017-11-11] MEDS: PAROXETINE HCL 20 MG TABLET NG SCH (08:36)
[2017-11-11] MEDS: Z GUARD REMEDY 2 OZ OINT TP PRN (08:37)
[2017-11-11] MEDS: PROSOURCE / PROSTAT (PYXIS) 30 ML UDC GT SCH (08:37)
[2017-11-11] MEDS: Z GUARD REMEDY 2 OZ OINT TP SCH ×2 (08:37→20:14)
[2017-11-11] MEDS: LACTOBACILLUS RHAMNOSUS GG 1 EACH CAP.SPRINK GT SCH ×2 (08:37→17:34)
[2017-11-11] MEDS: ENOXAPARIN SODIUM 40 MG/0.4 ML DISP.SYRIN SQ SCH (08:38)
--- NOTE | 2017-11-11 08:50 | NUR ---
icu note- dr. lainez ordered ativan srip, start at 5mg/hr max dose 10mg/hr
--- NOTE | 2017-11-11 09:00 | NUR ---
sedation vacation- per dr. lainez do not do sedation vacation, pt is unstable, md wants to keep pt completely sedated until respiratory status improves
--- NOTE | 2017-11-11 09:17 | NUR ---
icu note- per dr. lainez, pt is unstable for sedation vacation. per md please keep pt completely sedated until respiratory function improves
--- NOTE | 2017-11-11 09:23 | NUR ---
icu note- dr. lainez spoke with shawn (deloris), gave update on pt condition, all questions and concerns answered
[2017-11-11] MEDS ORDERED: LORAZEPAM INJ 20 MG in IV NS 0.9% 90 ML IV PRN (09:30)
--- NOTE | 2017-11-11 09:34 | NUR ---
icu note- pharmacy called regarding ativan and versed, per dr. lainez titrate versed to max of 15mg/hr, hold ativan drip for now until unable to sedate pt with versed. titrate versed by 1mg q1h. pharmacy aware
[2017-11-11 09:47] LABS: ABG BASE EXCESS 10.1 mmol/L; ABG OXYGEN SATURATION 98.1 % (92.0-98.5); ABG PCO2 60.4 mmHg (35.0-45.0); ABG PH 7.399 (7.350-7.450); ABG PO2 145.3 mmHg (75.0-100.0); AaDO2 216.1 mmHg; COHb 0.3 % (0.5-1.5); MetHb 0.4 % (0.0-1.5); O2Hb 97.4 % (94.0-97.0); PEEP,BG 12 cm H2O; SITE, ABG Right Radial; VENT MODE, BG AC 24 500 60% +12; VT, ABG 500 mL
[2017-11-11] MEDS: FIBERSOURCE HN 1,000 ML BOTTLE GT PRN (13:23)
[2017-11-11] MEDS: ACETAMINOPHEN 650 MG/20.3 ML UDC NG PRN (13:49)
--- NOTE | 2017-11-11 13:49 | NUR ---
icu note- pt has core temperture of 101.7, pt was placed on cooling blanket, Tylenol given, cool bath given, will reassess
--- NOTE | 2017-11-11 15:30 | NUR ---
icu note- firer powerhouse aware of new picc line order.
--- NOTE | 2017-11-11 15:58 | NUR ---
icu note- per dr. lainez titrate versed to max of 20mg/hr, hold ativan drip for now until unable to sedate pt with versed. titrate versed by 1mg q1h. pharmacy aware
--- NOTE | 2017-11-11 20:34 | NUR ---
SHEET ROLLER OPERATOR DF RECEIVED PT TO ROOM#258 PT SEDATED ON FENTANYL AT 650MCG/MIN, VERSED AT 16MG/HR, AND MORPHINE 15 MG IVP. PT AGITATED, RESTLESS, RR AT 40 I MEDICATED PT WITH PRN BENADRYL 50 MG IVP FOR SEDATION. PT WITH ETT/AC VENT SETTINGS WITH FIO2 OF 50% VSS. O2 SAT OF 98%, BP OF 97/55. TEMP OF 99.0 ON MILD COOLING MEASURES. PT FAMILY AT BEDSIDE UPDATED REGARDING POC. NO ACUTE DISTRESS NOTED AT THIS TIME.
--- NOTE | 2017-11-11 21:50 | NUR ---
PT RECEIVED INTUBATED ON 840 VENT. 7.5 ETT SECURED AT 24CM AT THE LIP. NO RESP DISTRESS NOTED. PT TOLERATING VENT SETTINGS. SX'D AND LAVAGED OF SML AMT OF THICK SPARKS SECRETIONS. VENT ALARMS SET AND AUDIBLE. AMBU BAG AT BEDSIDE. VENT PLUGGED INTO RED OUTLET. WILL CONTINUE TO MONITOR. Addendum: 11/11/17 at 2157 by QUINTIN OLSON RT Amended: Links added.
--- NOTE | 2017-11-11 22:13 | NUR ---
CHIP MIXING MACHINE OPERATOR DF PT RIGHT UPPER PICC LINE REMOVED, TIP CULTURE SENT TO LAB FOR C&S.NEW PICC LINE PLACED TO LEFT UPPER ARM BY PICC RN RUBEN Langley PT REMAINS SEDATED CALM,COOPERATIVE. VSS.
[2017-11-12] VITALS (34 sets, daily range): BP systolic 98–211; BP diastolic 46–102
[2017-11-12] MEDS: FENTANYL CITRAT IV 2,500 MCG in IV NS 0.9% 200 ML IV PRN ×6 (01:30→22:15)
[2017-11-12] MEDS: METOCLOPRAMIDE HCL 10 MG/10 ML UDC PO SCH ×3 (01:31→17:24)
[2017-11-12] MEDS: diphenhydrAMINE HCL 50 MG/ML VIAL IV PRN ×4 (02:46→22:41)
[2017-11-12] MEDS: LORAZEPAM INJ 2 MG/ML VIAL IV PRN ×5 (03:38→22:41)
--- NOTE | 2017-11-12 04:10 | NUR ---
TYPEWRITER RIBBON WINDER DF PT MEDICATED WITH ATIVAN 2MG IVP, PRIOR TO AM CARE. PT BECOMES VERY AGITATED WHEN STIMULATED. PT ON MAX DOSES ON VERSED (16MG/HR),FENTANYL (620 MCG/HR),MORPHINE GTT(15MG/HR)PT DIFFICULT TO SEDATE.PRN MEDS ADMIN FOR AGITATION.
[2017-11-12 04:45] LABS: BASOPHILS % (AUTO) 0.4 % (0.0-2.0); EOSINOPHILS # (AUTO) 0.2 /CMM (0.0-0.7); HEMATOCRIT 24 % (39-51); HEMOGLOBIN 8.4 g/dL (13.5-17.5); LYMPHOCYTES # (AUTO) 1.9 /CMM (0.8-4.8); LYMPHOCYTES % (AUTO) 22.6 % (20.0-44.0); MEAN CORPUSCULAR HEMOGLOBIN 33 PG (26.0-33.0); MEAN CORPUSCULAR HGB CONC 35 g/dl (31.0-36.0); MEAN CORPUSCULAR VOLUME 95 fL (80-96); MONOCYTES # (AUTO) 0.2 /CMM (0.1-1.30); MONOCYTES % (AUTO) 2.9 % (2.0-12.0); NEUTROPHILS % (AUTO) 72.1 % (43.0-81.0); PLATELET COUNT (AUTO) 147 /CMM (150-450); RDW COEFFICIENT OF VARIATION 13.3 (11.5-15.0); RED BLOOD CELL COUNT(AUTO) 2.56 MIL/uL (4.5-6.0); WHITE BLOOD COUNT (AUTO) 8.3 K/uL (4.3-11.0)
[2017-11-12] MEDS: ACETAMINOPHEN 650 MG/20.3 ML UDC NG PRN ×3 (04:46→19:51)
[2017-11-12] MEDS: MEROPENEM 500 MG in IV NS 0.9% 50 ML IV SCH ×3 (04:47→20:43)
[2017-11-12 05:14] LABS: BILIRUBIN,DIRECT 0.1 mg/dL (0.0-0.2); BILIRUBIN,TOTAL 0.2 mg/dL (0.2-1.0); CALCIUM, SERUM 7.9 mg/dL (8.5-10.1); CREATININE 0.8 mg/dL (0.6-1.3); MAGNESIUM 2.2 mg/dL (1.8-2.4); POTASSIUM 3.6 mmol/L (3.5-5.1); TOTAL PROTEIN, SERUM 5.3 g/dL (6.4-8.2)
[2017-11-12] MEDS: MIDAZOLAM HCL 100 MG in IV NS 0.9% 80 ML IV PRN ×4 (05:30→23:39)
[2017-11-12 05:34] LABS: ALBUMIN 1.4 g/dL (3.4-5.0)
--- NOTE | 2017-11-12 07:00 | NUR ---
icu initial note- received pt sedated but arousable, pt moves all extremities freely, pt is unable to track at this time, pt is intubated 7.5 lipline ac 24 tv 500 fio2 50% peep 12, sating well, no s/s of resp.distress or sob noted at this time, pt is on bedside monitor showing sr 70's, no s/s of chest pain or discomfort noted, pt has ogt, c/d/i/patent, flushing well, running fibersource@60ml/hr, tolerating well, minimal residuals noted, pt has bilateral wrist restraints in place, skin check completed, rom performed, released and replaced for pt safety, pt has jun picc line, c/d/i/patent, flushing well,running tko @5ml/hr, versed @16mg/hr, fentanyl@620mcg/hr, morphine@15mg/hr, f/c draining yellow urine to gravity, all safety measures in place at all times, call light within easy reach, will monitor pt closely for changes
[2017-11-12] MEDS: METOCLOPRAMIDE HCL 10 MG/2 ML VIAL IV SCH ×2 (08:19→16:05)
[2017-11-12 08:21] LABS: ABG BASE EXCESS 9.9 mmol/L; ABG OXYGEN SATURATION 97.2 % (92.0-98.5); ABG PCO2 52.2 mmHg (35.0-45.0); ABG PH 7.446 (7.350-7.450); ABG PO2 104.9 mmHg (75.0-100.0); AaDO2 192.9 mmHg; COHb 0.3 % (0.5-1.5); MetHb 0.4 % (0.0-1.5); O2Hb 96.5 % (94.0-97.0); PEEP,BG 12 cm H2O; SITE, ABG Right Radial; VENT MODE, BG AC 24 500 50% +12; VT, ABG 500 mL
[2017-11-12] MEDS: IV NS 0.9% 100 ML IV PRN (08:24)
[2017-11-12] MEDS: VANCOMYCIN 1.25 GM in IV D5W 500 ML IV SCH ×3 (08:25→23:44)
[2017-11-12] MEDS: FOLIC ACID 1 MG TABLET PO SCH (08:25)
[2017-11-12] MEDS: THIAMINE HCL 100 MG TABLET PO SCH (08:25)
[2017-11-12] MEDS: PROSOURCE / PROSTAT (PYXIS) 30 ML UDC GT SCH (08:25)
[2017-11-12] MEDS: LACTOBACILLUS RHAMNOSUS GG 1 EACH CAP.SPRINK GT SCH ×2 (08:25→16:05)
[2017-11-12] MEDS: PAROXETINE HCL 20 MG TABLET NG SCH (08:25)
[2017-11-12] MEDS: PANTOPRAZOLE 40 MG VIAL IV SCH (08:25)
[2017-11-12] MEDS: ENOXAPARIN SODIUM 40 MG/0.4 ML DISP.SYRIN SQ SCH (08:31)
[2017-11-12] MEDS: Z GUARD REMEDY 2 OZ OINT TP SCH ×2 (08:32→21:00)
[2017-11-12] MEDS: FIBERSOURCE HN 1,000 ML BOTTLE GT PRN (16:12)
[2017-11-12] MEDS: HYDROMORPHONE INJ 0.5 MG/0.5 ML SYRINGE IV PRN ×2 (18:55→22:41)
--- NOTE | 2017-11-12 19:39 | NUR ---
CANNED FOOD RECONDITIONING INSPECTOR DF RECEIVED PT TO ROOM # 258 PT DANGEROUSLY AGITATED DESPITE RECEIVING MULTIPLE MEDICATIONS FOR SEDATION. PT AT AROUND 1830 RECEIVED ATIVAN 2MG PRN,DILAUDID 0.5 MG IVP, BENADRYL 50 MG IVP AND JUST ADMIN MORPHINE 4MG IVP. PT HAS CONTINUOUS INFUSIONS OF VERSED GTT INCREASED TO 20MG/HR, MORPHINE GTT AT 15MG/HR, AND FENTANYL AT 620 MCG/HR. DANGEROUSLY AGITATED FLAILING BUE/BLE, ATTEMPTING TO EXTUBATE SELF, ATTEMPTING TO KICK AND SWING LEGS OVER SIDE RAIL. PT DOES NOT FOLLOW ANY COMMANDS,DOES NOT RESPOND TO DEEP STIMULI, SINUS TACHY AT 155-170 BPM. SBP AT 156. O2 SAT OF 88% INCREASED FIO2 TO 100%. I S/W REWINDER OPERATOR SHERIDAN PT STATUS CHANGED TO 1:1 NURSING WITH HALDOL 5 MG IV X1. PT BLE RESTRAINED FOR PT/STAFF SAFETY UNTIL PT IS SEDATED.
[2017-11-12] MEDS: MORPHINE SULFATE INJ 4 MG/ML DISP.SYRIN IV PRN (19:45)
[2017-11-12] MEDS ORDERED: HALOPERIDOL LACTATE INJ 5 MG/ML VIAL IM ONE (20:00)
--- NOTE | 2017-11-12 20:05 | NUR ---
PRINTING GREY CLOTH TENDER DF PT BP ELEVATED AT 211/97 PT ON MULTIPLE SEDATIVES, PT HAS PRN LOPRESSOR. I WILL WAIT 15-30 MIN AND ALLOW SEDATION TO TAKE PLACE, PRIOR TO ADMIN LOPRESSOR.
--- NOTE | 2017-11-12 20:58 | NUR ---
RN GERIATRIC DF PT REMAINS VERY AGITATED, ATIVAN 2MG IVP PRN AGITATION. PT /GF AT BEDSIDE STIMULATING PT CAUSING AGITATION TO INCREASE. PT 1:1 ACUITY CLOSELY MONITORED FOR SAFETY.
[2017-11-12] MEDS: COLISTIMETHATE SODIUM 150 MG VIAL NEB SCH (21:37)
--- NOTE | 2017-11-12 21:39 | NUR ---
CLEANING MAID DF PT TUBE FEEDING ON HOLD WHILE PT IS AGITATED DIFFICULT TO MAINTAIN HOB AT 35 DEGREE ASPIRATION RISK, I WILL RESUME SEDATION ONCE PT IS SEDATED.
--- NOTE | 2017-11-12 22:47 | NUR ---
CONSTRUCTION PLUMBER DF PREVIOUSLY NOTED PT DANGEROUSLY AGITATED THRASHING BUE/BLE. KICKING, ATTEMPTING TO SELF EXTUBATE.CHANGES IN BASELINE VITAL SIGNS. PT MEDICATED FOR AGITATION WITH PRN DILAUDID 0.5MG IVP, ATIVAN 2MG IVP, BENADRYL 50MG IVP PRN AGITATION COMBATIVE BEHAVIOR. CURRENT BP OF 143/77, SINUS TACHY AT 115 BPM.
[2017-11-13] VITALS (55 sets, daily range): BP systolic 87–191; BP diastolic 39–121
[2017-11-13] MEDS: MORPHINE SULFATE INJ 4 MG/ML DISP.SYRIN IV PRN (00:10)
--- NOTE | 2017-11-13 00:11 | NUR ---
DUMPER DF PT AGITATED BITING ETT, FLAILING BUE/BLE. MORPHINE 4MG IVP PRN AGITATION.
[2017-11-13] MEDS: LORAZEPAM INJ 2 MG/ML VIAL IV PRN ×4 (00:34→09:28)
[2017-11-13] MEDS: HYDROMORPHONE INJ 0.5 MG/0.5 ML SYRINGE IV PRN ×4 (00:34→09:28)
--- NOTE | 2017-11-13 00:34 | NUR ---
SEMICONDUCTOR DIES LOADER DF AGITATION PRESENT MEDICATED WITH PRN DILAUDID 0.5MG IVP AND ATIVAN 2MG IVP.
[2017-11-13] MEDS: METOCLOPRAMIDE HCL 10 MG/2 ML VIAL IV SCH ×3 (01:00→16:05)
[2017-11-13] MEDS: METOCLOPRAMIDE HCL 10 MG/10 ML UDC PO SCH ×3 (01:35→17:20)
[2017-11-13] MEDS: diphenhydrAMINE HCL 50 MG/ML VIAL IV PRN ×3 (01:57→09:28)
--- NOTE | 2017-11-13 01:59 | NUR ---
ROAD MANAGER DF MEDICATED WITH PRN BENADRYL 50 MG IVP, PRN AGITATION. MEDICATED WITH ZOFRAN 4MG IVP PRN NAUSEA. VSS. PT CALM, SEDATED AT THIS TIME.
[2017-11-13] MEDS: FENTANYL CITRAT IV 2,500 MCG in IV NS 0.9% 200 ML IV PRN ×6 (02:23→22:53)
--- NOTE | 2017-11-13 04:25 | NUR ---
BOWLING ALLEY MECHANIC DF PT WITH EXTREME AGITATION, COMBATIVE BEHAVIOR, PT VERY DIFFICULT TO CONTROL. PT BITING ETT NOT GETTING ADEQUATE VOLUME VENTILATION, THRASHING IN BED KICKING, PT WITH CLENCHED FISTS ATTEMPTING TO PUNCH STAFF, ATTEMPTING SELF EXTUBATION, ELEVATED HEART RATE SINUS TACH AT 160 BPM SBP OF 158. PT RECEIVING ALL PRN SEDATIVE/NARCOTICS AND CONTINUOUS INFUSIONS INEFFECTIVE IN SEDATING CONTROLLING PT. CONSUMER LENDER SPOKE WITH [facility] ORDER TO RESTART PROPOFOL AND CHECK TRIGLYCERIDE LEVEL NOW AND CONTINUE TO TRANSFUSE PROPOFOL IF TRIGLYCERIDE LEVEL IN NORMAL RANGE. VERSED GTT DECREASED TO 10 MG/HR, MORPHINE GTT DECREASED TO 10 MG HR. FENTANYL GTT DECREASED TO 500MCG/HR.
[2017-11-13] MEDS: PROPOFOL 100 ML IV PRN ×6 (04:30→23:26)
[2017-11-13] MEDS ORDERED: PROPOFOL 100 ML IV PRN (04:30)
--- NOTE | 2017-11-13 05:15 | NUR ---
FLOORS BUFFER DF PT FENTANYL GTT PLACED BACK TO 7MCG/KG 620 MCG/HR.
[2017-11-13 05:24] LABS: BASOPHILS % (AUTO) 0.5 % (0.0-2.0); EOSINOPHILS # (AUTO) 0.1 /CMM (0.0-0.7); HEMATOCRIT 27 % (39-51); HEMOGLOBIN 9.3 g/dL (13.5-17.5); LYMPHOCYTES # (AUTO) 1.1 /CMM (0.8-4.8); MEAN CORPUSCULAR HEMOGLOBIN 32 PG (26.0-33.0); MEAN CORPUSCULAR HGB CONC 34 g/dl (31.0-36.0); MEAN CORPUSCULAR VOLUME 94 fL (80-96); MONOCYTES # (AUTO) 0.6 /CMM (0.1-1.30); MONOCYTES % (AUTO) 6.5 % (2.0-12.0); NEUTROPHILS # (AUTO) 7.2 /CMM (1.8-8.9); PLATELET COUNT (AUTO) 359 /CMM (150-450); RDW COEFFICIENT OF VARIATION 13.3 (11.5-15.0); WHITE BLOOD COUNT (AUTO) 8.9 K/uL (4.3-11.0)
[2017-11-13] MEDS: MIDAZOLAM HCL 100 MG in IV NS 0.9% 80 ML IV PRN ×4 (05:28→21:46)
[2017-11-13] MEDS: MEROPENEM 500 MG in IV NS 0.9% 50 ML IV SCH ×3 (05:30→20:33)
[2017-11-13 05:38] LABS: CALCIUM, SERUM 7.7 mg/dL (8.5-10.1); CREATININE 0.8 mg/dL (0.6-1.3); MAGNESIUM 1.9 mg/dL (1.8-2.4); PHOSPHORUS 5.1 mg/dL (2.5-4.9); POTASSIUM 3.8 mmol/L (3.5-5.1)
[2017-11-13] MEDS: FIBERSOURCE HN 1,000 ML BOTTLE GT PRN (05:44)
--- NOTE | 2017-11-13 05:58 | NUR ---
SEALER OPERATOR DF BENADRYL 50 MG ADMIN PRN AGITATION, VERSED GTT AT 10MG/HR, FENTANYL AT 400MCG/HR, MORPHINE GTT AT 10MG/HR, DIPRIVAN GTT AT 60MCG. PT NOW SEDATED, CALM,COOPERATIVE. DURING AM CARE REDNESS NOTED TO PERIAREA, AND SACRAL AREA. PT VERY AGITATED UNABLE TO PHOTOGRAPH. WOUND CONSULT PLACED. BILATERAL SOFT ANKLE RESTRAINTS REMOVED. REDNESS NOTED TO ANKLES, PT WAS VERY COMBATIVE NOW CALM AND UNDER CONTROL.
--- NOTE | 2017-11-13 06:09 | NUR ---
REHEAT FURNACE OPERATOR DF TRIGLYCERIDES OF 378 PROPOFOL TRANSFUSION STOPPED PER PROTOCOLS. MD/CHANNEL MACHINE OPERATOR AWARE UNABLE TO TRANSFUSE PROPOFOL AT THIS TIME DUE TO ELEVATED TRIGLYCERIDES.
--- NOTE | 2017-11-13 06:38 | NUR ---
PATIENT RESOURCE COORDINATOR DF PROPOFOL STOPPED 2ND ELEVATED TRIGLYCERIDES OF 378.
--- NOTE | 2017-11-13 06:58 | NUR ---
ELECTROCARDIOGRAPH REPAIRER DF PT AGITATED OFF PROPOFOL VERSED INCREASED TO 15MG/HR, MORPHINE GTT AT 15MG/HR, AND FENTANYL GTT AT 620 MCG/MIN. PT AGITATED, DIFFICULT TO CONTROL. WILL ADMIN PRN ATIVAN 2MG FOR AGITATION.
--- NOTE | 2017-11-13 07:20 | NUR ---
HOOKER ON DF REPORT PROVIDED TO CRISTINA Mccoy
[2017-11-13] MEDS ORDERED: LORAZEPAM INJ 2 MG/ML VIAL IV STA ×2 (07:38→10:21)
[2017-11-13] MEDS: Z GUARD REMEDY 2 OZ OINT TP SCH ×2 (08:48→20:05)
[2017-11-13] MEDS: PAROXETINE HCL 20 MG TABLET NG SCH (08:48)
[2017-11-13] MEDS: THIAMINE HCL 100 MG TABLET PO SCH (08:48)
[2017-11-13] MEDS: LACTOBACILLUS RHAMNOSUS GG 1 EACH CAP.SPRINK GT SCH ×2 (08:48→16:40)
[2017-11-13] MEDS: FOLIC ACID 1 MG TABLET PO SCH (08:48)
[2017-11-13] MEDS: VANCOMYCIN 1.25 GM in IV D5W 500 ML IV SCH ×2 (08:51→17:53)
[2017-11-13] MEDS: PROSOURCE / PROSTAT (PYXIS) 30 ML UDC GT SCH (08:51)
[2017-11-13] MEDS: ENOXAPARIN SODIUM 40 MG/0.4 ML DISP.SYRIN SQ SCH (08:52)
[2017-11-13] MEDS: PANTOPRAZOLE 40 MG VIAL IV SCH (08:53)
[2017-11-13 09:14] LABS: ABG BASE EXCESS 5.3 mmol/L; ABG PCO2 76.8 mmHg (35.0-45.0); ABG PH 7.265 (7.350-7.450); ABG PO2 148.6 mmHg (75.0-100.0); AaDO2 267.9 mmHg; COHb 0.3 % (0.5-1.5); MetHb 0.4 % (0.0-1.5); O2Hb 97.3 % (94.0-97.0); PEEP,BG 10 cm H2O; SITE, ABG Right Radial; VENT MODE, BG AC 24 / TOTAL RATE 29; VT, ABG 500 mL
[2017-11-13] MEDS: COLISTIMETHATE SODIUM 150 MG VIAL NEB SCH ×2 (09:26→21:50)
--- NOTE | 2017-11-13 09:53 | NUR ---
WORKFORCE MANAGEMENT CONSULTANT NOTE 0720: Received patient with frequent movement, with order of 4 point soft restraints for safety. With ETT to vent, noted patient fight the vent at times. ST 130-150's, [id number]: ABG resulted, CN made Dr. lainez aware, with order to may titrate Versed to 20mg/hr. 0930:m Placed Versed to 20mg/hr, given Ativan, Benadryl and Dilaudid PRN as ordered. 0950: Noted patient less combative/movements at this time, Still awake, eyes open and little movement at this time. Will continue to monitor. Addendum: 11/13/17 at 1001 by CASANDRA FELDMAN RN 0720: High BP. OGT intact, no residuals Barrett cath intact, noted with good UOP, maia colored. PHYLLIS PICC intact. On Versed 15, Fentanyl 620, MS 15. Noted with soft BM, scattered due to frequent movement. 0800: Cleaned patient for comfort, but still patient noted frequent movements. All meds given as ordered. Will follow up with .
--- NOTE | 2017-11-13 10:57 | NUR ---
EDGER FEEDER NOTE 1045: Dr. Raza ordered to restart patient on Diprivan, aware for high Trigly. Patient still moving a lot despite on MS 15, Fentanyl 620, Versed 20. also ordered to may start Diprivan on 100mcg, used one hanging from previous shift. Called pharmacy to verify. 1055: Patient noted more calm at this time. Will continue to monitor.
--- NOTE | 2017-11-13 18:19 | NUR ---
NEUROCRITICAL CARE PHYSICIAN NOTE Girlfriend called again and asking for MD to reach. Informed her on her first call to call [facility], gave number. Ineffective. Informed Dr. Arcos to call girlfriend, said, she will. Update given to girlfriend. Patient comfortable at this time. On 50mcg Diprivan. MS 15, Fentanyl 7(62mL), Versed 20. Remained calm at this time. Kept clean, warm and dry. Needs attended. PERINATAL SOCIAL WORKER restraints on for safety. PHYLLIS PICC intact, afebrile. OGT intact, no residuals, feeding tolerated. Kept HOB elevated.
--- NOTE | 2017-11-13 19:30 | NUR ---
SUPERVISOR LIQUID YEAST: RECEIVED ORALLY INTUBATED PT WT VENT SETTINGS ORDERED. NO ACUTE DISTRESS, NO EVIDENCE OF DISCOMFORT. SEDATED ON DIPRIVAN AT 50MCG/KG/MIN, VERSED AT 20ML/HR, FENTANYL AT 7MCG/KG/HR AND MORPHINE AT 15MG/HR. BILAT. SOFT WRIST RESTRAINTS IN PLACE FOR EPISODES OF TRYING TO REACH TUBINGS. SKIN AND CIRCULATION WNL. OGT PLACEMENT VERIFIED AND RUNNING FIBERSOURCE HN AT 60ML/HR WT 80CC RESIDUAL. AFEBRILE. SR ON CARD SERVICES SPECIALIST. NO S/S OF COMPLICATIONS ON PHYLLIS PICC LINE. F/C PATENT AND INTACT DRAINING YELLOW URINE TO GRAVITY. HOB ELEVATED AT 35 DEGREES. SAFETY AND ASPIRATION PRECAUTIONS NOTED. WILL CONTINUE TO MONITOR.
[2017-11-14] VITALS (39 sets, daily range): BP systolic 91–118; BP diastolic 41–68
[2017-11-14] MEDS: VANCOMYCIN 1.25 GM in IV D5W 500 ML IV SCH ×4 (00:28→23:18)
[2017-11-14] MEDS: METOCLOPRAMIDE HCL 10 MG/2 ML VIAL IV SCH (00:35)
[2017-11-14] MEDS: METOCLOPRAMIDE HCL 10 MG/10 ML UDC PO SCH ×3 (01:32→17:03)
[2017-11-14] MEDS: FIBERSOURCE HN 1,000 ML BOTTLE GT PRN (02:51)
[2017-11-14] MEDS: PROPOFOL 100 ML IV PRN ×5 (02:52→20:09)
[2017-11-14] MEDS: MIDAZOLAM HCL 100 MG in IV NS 0.9% 80 ML IV PRN ×4 (03:28→20:41)
[2017-11-14] MEDS: FENTANYL CITRAT IV 2,500 MCG in IV NS 0.9% 200 ML IV PRN ×4 (03:45→22:24)
[2017-11-14 05:07] LABS: BASOPHILS % (AUTO) 0.8 % (0.0-2.0); EOSINOPHILS # (AUTO) 0.2 /CMM (0.0-0.7); EOSINOPHILS % (AUTO) 3.2 % (0.0-6.0); LYMPHOCYTES # (AUTO) 1.6 /CMM (0.8-4.8); LYMPHOCYTES % (AUTO) 27.2 % (20.0-44.0); MEAN CORPUSCULAR HEMOGLOBIN 32 PG (26.0-33.0); MEAN CORPUSCULAR HGB CONC 34 g/dl (31.0-36.0); MEAN CORPUSCULAR VOLUME 94 fL (80-96); MONOCYTES # (AUTO) 0.5 /CMM (0.1-1.30); MONOCYTES % (AUTO) 7.8 % (2.0-12.0); NEUTROPHILS # (AUTO) 3.5 /CMM (1.8-8.9); PLATELET COUNT (AUTO) 265 /CMM (150-450); RDW COEFFICIENT OF VARIATION 13.1 (11.5-15.0); WHITE BLOOD COUNT (AUTO) 5.8 K/uL (4.3-11.0)
[2017-11-14 05:13] LABS: HEMATOCRIT 21 % (39-51)
--- NOTE | 2017-11-14 05:15 | NUR ---
LOOM FIXER: RECEIVED HGB=7.0 AND HCT=21. NO ACTIVE BLEEDING AT THIS TIME. NO PILO. ED CHARGE NURSE MADE AWARE. WILL ENDORSE TO DAY SHIFT TO RELAY TO ROUNDING MD.
[2017-11-14 05:21] LABS: CALCIUM, SERUM 7.9 mg/dL (8.5-10.1); CREATININE 0.8 mg/dL (0.6-1.3); MAGNESIUM 2.3 mg/dL (1.8-2.4); PHOSPHORUS 2.7 mg/dL (2.5-4.9)
[2017-11-14] MEDS: MEROPENEM 500 MG in IV NS 0.9% 50 ML IV SCH ×2 (05:22→12:31)
[2017-11-14 05:29] LABS: POTASSIUM 3.6 mmol/L (3.5-5.1)
[2017-11-14] MEDS: COLISTIMETHATE SODIUM 150 MG VIAL NEB SCH ×3 (07:28→22:22)
--- NOTE | 2017-11-14 07:45 | NUR ---
ICU/RN - Initial Notes Received pt sedated, orally intubated to mechanical ventilator with settings as ordered. No s/s of respiratory distress. On tele SR 77. OG tube intact, tolerating tube feeding fairly. PICC line to PHYLLIS patent and intact. Barrett catheter draining urine to gravity. Safety and comfort measures in place. Will continue to monitor pt closely.
[2017-11-14] MEDS: FOLIC ACID 1 MG TABLET PO SCH (08:11)
[2017-11-14] MEDS: THIAMINE HCL 100 MG TABLET PO SCH (08:11)
[2017-11-14] MEDS: PAROXETINE HCL 20 MG TABLET NG SCH (08:11)
[2017-11-14] MEDS: LACTOBACILLUS RHAMNOSUS GG 1 EACH CAP.SPRINK GT SCH ×2 (08:11→16:39)
[2017-11-14] MEDS: PANTOPRAZOLE 40 MG VIAL IV SCH (08:12)
[2017-11-14] MEDS: PROSOURCE / PROSTAT (PYXIS) 30 ML UDC GT SCH (08:12)
[2017-11-14] MEDS: Z GUARD REMEDY 2 OZ OINT TP SCH ×2 (08:13→21:19)
[2017-11-14] MEDS: ENOXAPARIN SODIUM 40 MG/0.4 ML DISP.SYRIN SQ SCH (08:19)
[2017-11-14 09:02] LABS: ABG BASE EXCESS 10.5 mmol/L; ABG OXYGEN SATURATION 96.8 % (92.0-98.5); ABG PCO2 49.2 mmHg (35.0-45.0); ABG PH 7.473 (7.350-7.450); ABG PO2 96.5 mmHg (75.0-100.0); AaDO2 204.7 mmHg; COHb 0.3 % (0.5-1.5); MetHb 0.8 % (0.0-1.5); O2Hb 95.7 % (94.0-97.0); PEEP,BG 10 cm H2O; SITE, ABG Right Radial; VT, ABG 500 mL
[2017-11-14] MEDS: IV NS 0.9% 100 ML IV PRN (10:41)
--- NOTE | 2017-11-14 12:05 | NUR ---
VENT CHANGES BELLOW ORDER: PEEP 8 cmH2O Addendum: 11/14/17 at 1206 by KAE ROBERTS RT Amended: Links added.
--- NOTE | 2017-11-14 19:00 | NUR ---
ICU/RN - Notes Pt remains sedated in no acute distress. Pt scheduled for tracheostomy placement tomorrow with consent obtained by 2 doctors.
--- NOTE | 2017-11-14 20:00 | NUR ---
received pt from day shift, sedated on Diprivan at 30mcg, versed at 15mg/hr, morphine at 15mg/hr and fentanyl at 500mcg/hr, SR, on the vent, lungs congested, pitting edema BL hands, OG to feeding tolerates well, f/c good urine output, v/s stable, no pain, pt turned and repositioned, restraints on.
[2017-11-14] MEDS ORDERED: MEROPENEM 1 G VIAL IV ONE (21:29)
[2017-11-14] MEDS: MEROPENEM 1 G in IV NS 0.9% 100 ML IV SCH (21:45)
[2017-11-15] VITALS (64 sets, daily range): BP systolic 99–170; BP diastolic 46–82
--- NOTE | 2017-11-15 00:27 | NUR ---
pt is resting in the bed, sedated, v/s stable, no pain, pt turned and repositioned q2hrs, off of feeding for procedure in AM.
[2017-11-15] MEDS: METOCLOPRAMIDE HCL 10 MG/10 ML UDC PO SCH ×3 (00:59→18:00)
[2017-11-15] MEDS: PROPOFOL 100 ML IV PRN ×5 (01:02→20:27)
[2017-11-15] MEDS: MIDAZOLAM HCL 100 MG in IV NS 0.9% 80 ML IV PRN ×5 (02:25→23:06)
[2017-11-15] MEDS: FENTANYL CITRAT IV 2,500 MCG in IV NS 0.9% 200 ML IV PRN ×5 (03:12→20:16)
--- NOTE | 2017-11-15 04:00 | NUR ---
pt is resting in the bed, sedated on versed at 20mg, fentanyl at 627mcg, morphine at 15mg and Diprivan at 30mcg, v/s stable, good urine output, pt cleaned, changed and repositioned q2hrs.
[2017-11-15] MEDS ORDERED: MEROPENEM 1 G VIAL IV ONE (04:24)
[2017-11-15] MEDS: MEROPENEM 1 G in IV NS 0.9% 100 ML IV SCH ×3 (04:28→20:32)
[2017-11-15 05:20] LABS: BASOPHILS % (AUTO) 0.7 % (0.0-2.0); EOSINOPHILS # (AUTO) 0.2 /CMM (0.0-0.7); EOSINOPHILS % (AUTO) 2.8 % (0.0-6.0); HEMATOCRIT 22 % (39-51); HEMOGLOBIN 7.5 g/dL (13.5-17.5); LYMPHOCYTES # (AUTO) 1.6 /CMM (0.8-4.8); LYMPHOCYTES % (AUTO) 22.9 % (20.0-44.0); MEAN CORPUSCULAR HEMOGLOBIN 32 PG (26.0-33.0); MEAN CORPUSCULAR HGB CONC 34 g/dl (31.0-36.0); MEAN CORPUSCULAR VOLUME 94 fL (80-96); MONOCYTES # (AUTO) 0.5 /CMM (0.1-1.30); MONOCYTES % (AUTO) 7.4 % (2.0-12.0); NEUTROPHILS # (AUTO) 4.8 /CMM (1.8-8.9); NEUTROPHILS % (AUTO) 66.2 % (43.0-81.0); PLATELET COUNT (AUTO) 303 /CMM (150-450); RED BLOOD CELL COUNT(AUTO) 2.36 MIL/uL (4.5-6.0); WHITE BLOOD COUNT (AUTO) 7.2 K/uL (4.3-11.0)
[2017-11-15 05:38] LABS: INR 0.96 (0.87-1.13)
[2017-11-15 05:39] LABS: CREATININE 0.8 mg/dL (0.6-1.3); MAGNESIUM 2.2 mg/dL (1.8-2.4); PHOSPHORUS 4.4 mg/dL (2.5-4.9); POTASSIUM 3.7 mmol/L (3.5-5.1)
--- NOTE | 2017-11-15 07:14 | NUR ---
ELECTRIC TRUCK CRANE OPERATOR NOTES RECEIVED PATIENT SEDATED , RESPONSIVE TO PAIN STIMULI , NOT IN ACUTE DISTRESS , RESPIRATIONS EVEN AND UNLABORED WITH SPO2 OF 100% VIA MECHANICAL VENTILATOR , ETT 7.02/[address] , SR 75 ON BEDSIDE MONITOR , OGT IN PLACE , FC DRAINING VIA GRAVITY WITH CLEAR YELLOW URINE , BILATERAL SOFT WRIST RESTRAIN IN PLACE , PHYLLIS PICC LINE WITH DIPRIVAN @ 30MCG/KG/MIN , MORPHINE @ 15MG/HR , FENTANYL @ 7MCG/KG/MIN , VERSED @ 20MH/HR INFUSING WELL , RFA # 20 PATENT AND INTACT SL , ALL NEEDS ATTENDED , BED ON LOW AND LOCKED POSITION , SIDE RAILS X2 , HOB @ 35 , WILL CONTINUE TO MONITOR
[2017-11-15] MEDS: LACTOBACILLUS RHAMNOSUS GG 1 EACH CAP.SPRINK GT SCH ×2 (07:41→15:41)
[2017-11-15] MEDS: PROSOURCE / PROSTAT (PYXIS) 30 ML UDC GT SCH (07:41)
[2017-11-15] MEDS: PAROXETINE HCL 20 MG TABLET NG SCH (07:42)
[2017-11-15] MEDS: THIAMINE HCL 100 MG TABLET PO SCH (07:43)
[2017-11-15] MEDS: FOLIC ACID 1 MG TABLET PO SCH (07:43)
[2017-11-15] MEDS: ENOXAPARIN SODIUM 40 MG/0.4 ML DISP.SYRIN SQ SCH (07:43)
[2017-11-15] MEDS: PANTOPRAZOLE 40 MG VIAL IV SCH (07:47)
[2017-11-15] MEDS: VANCOMYCIN 1.25 GM in IV D5W 500 ML IV SCH ×3 (08:00→23:15)
[2017-11-15] MEDS: Z GUARD REMEDY 2 OZ OINT TP SCH ×2 (08:00→20:35)
--- NOTE | 2017-11-15 08:00 | NUR ---
HORSERADISH GRINDER NOTES PO MEDS , LOVENOX HELD PATIENT IS SCHEDULED FOR TRACH PLACEMENT TODAY .
[2017-11-15 08:29] LABS: ABG BASE EXCESS 9.9 mmol/L; ABG OXYGEN SATURATION 97.5 % (92.0-98.5); ABG PCO2 50.2 mmHg (35.0-45.0); COHb 0.3 % (0.5-1.5); MetHb 0.6 % (0.0-1.5); O2Hb 96.6 % (94.0-97.0); PEEP,BG 8 cm H2O; SITE, ABG Left Radial; VT, ABG 500 mL
--- NOTE | 2017-11-15 08:57 | NUR ---
VENT CHANGES BELLOW ORDER: PEEP +5 Addendum: 11/15/17 at 0857 by KAE ROBERTS RT Amended: Links added.
--- NOTE | 2017-11-15 09:22 | NUR ---
WOUND CARE CONSULT: PT NOT TURNED FOR SKIN ASSESSMENT AT THIS TIME DUE TO AGITATION. PERINEUM NOTED TO HAVE SOME REDNESS. RECOMMEND CONTINUE Z GUARD. PT ON FIRST STEP MATTRESS. ALL SKIN PROTECTION MEASURES IN PLACE AND DISCUSSED WITH NURSING STAFF. WILL SEE PRN. KERNS IN AGREEMENT WITH PLAN OF CARE.
--- NOTE | 2017-11-15 09:29 | NUR ---
LEAD FURNACE OPERATOR NOTES SEEN AND EVALUATED BY DR PANG , PATIENT SEDATED , DISCUSSED LABS , ABG , CURRENT VITAL SIGNS , SEDATION REVIEWED , AFEBRILE , TOLERATING CURRENT VENT SETTINGS WITH NO SINGS OF DISTRESS , PER MD TRY TO WEAN PATIENT OFF DIPRIVAN , WILL RE CHECK TRIGLYCERIDES LEVEL TODAY ,
[2017-11-15] MEDS: COLISTIMETHATE SODIUM 150 MG VIAL NEB SCH ×2 (09:51→21:38)
[2017-11-15] MEDS: LORAZEPAM INJ 2 MG/ML VIAL IV PRN ×2 (10:11→12:11)
--- NOTE | 2017-11-15 10:15 | NUR ---
DOG BEHAVIORIST NOTES PATIENT NOTED TO BE AGITATED , KICKING , SPO2 OF 88% VIA MECHANICAL VENT SETTINGS ORDERED , ST 130 ON BEDSIDE MONITOR WHILE OFF DIPRIVAN , RESTARTED DIPRIVAN DRIP @ 30MCG/KG/MIN , BILATERAL SOFT WRIST RESTRAINTS IN PLACE , WILL CONTINUE TO MONITOR Addendum: 11/15/17 at 1056 by SAUL PRICE RN NOTIFIED DR PANG THAT PATIENT IS AWAKE AGITATED , ON DISTRESS , SPO2 OF 88% VIA MECHANICAL VENT , RR OF 40CPM HR OF 140'S BP OF 165/81 , PER MD EDEN TO RE START DIPRIVAN ,
--- NOTE | 2017-11-15 10:26 | NUR ---
PHU met with ICU GOMEZ [place] and pt's RN William, who informed SW that pt's girlfriend/finidia Hyde was upset yesterday evening screaming at Dr. Raza. Pt. requires trach placement since pt. has been intubated for a few weeks now. Pt's darryl states she is DPOA but has not provided any documentation. Two doctors have signed consent for tracheostomy and pt's gabriella is not in agreement. GOMEZ Washington has requested for SW to speak with Mary Ellen. PHU called Mary Ellen to inquire if she has DPOA and where is the documentation stating that. PHU also inquired with her as to when was the DPOA done. According to Mary Ellen, DPOA was done over a year ago with the pt. and she has called her media traffic manager to fax the DPOA. PHU informed Mary Ellen that three weeks ago she told GOMEZ Washington that she was going to fax the DPOA and never did. PHU reiterated to Mary Ellen to fax the DPOA today to ICU fax since tracheostomy is scheduled for today. Mary Ellen was emotionally upset. PHU provided emotional support to her. PHU updated ICU GOMEZ Washington regarding the phone call.
[2017-11-15] MEDS: HYDROMORPHONE INJ 0.5 MG/0.5 ML SYRINGE IV PRN (10:37)
--- NOTE | 2017-11-15 12:00 | NUR ---
@ 1200 VENT CHANGES BELLOW DUE TO LOW SATURATION. PEEP +8 Addendum: 11/15/17 at 1330 by KAE ROBERTS RT Amended: Links added.
--- NOTE | 2017-11-15 13:37 | NUR ---
ACUTE CARE NURSING ASSISTANT NOTES NOTIFIED DR PANG REGARDING TRIGLYCERIDES LEVEL , MD AWARE , NO NEW ORDERS RECEIVED .
[2017-11-15] MEDS ORDERED: LIDOCAINE 1%-EPI 1:100,000 20 ML VIAL ONE (13:42)
--- NOTE | 2017-11-15 17:16 | NUR ---
OCCUPATIONAL THER NOTES GIRLFRIEND / FIANCE BROUGHT THE DPOA PAPER WORKS , ATTACHED TO CHART , CALLED SURGERY AND NOTIFIED THEM THAT DPOA PAPER WORKS WAS BROUGHT BY THE FIANCE , PROCEDURE CONSENT FROM 2 MD'S NOT VALID, DR ROSALES AT BEDSIDE EXPLAINING THE RISK AND BENEFITS OF THE PROCEDURE .
[2017-11-15] MEDS ORDERED: ANESTHESIA TRAY IN PYXIS 1 EA TRAY MC ONE (17:17)
[2017-11-15] MEDS ORDERED: ROCURONIUM BROMIDE 50 MG/5 ML ONE (17:25)
[2017-11-15] MEDS ORDERED: MIDAZOLAM HCL 2 MG/2ML VIAL ONE (17:25)
--- NOTE | 2017-11-15 17:38 | NUR ---
COLLECTION COORDINATOR NOTES PATIENT TRANSFERRED TO OR FOR TRACH PLACEMENT ACCOMPANIED BY DR MULLIGAN , GLADIS RN ,AND RT KAE , PATIENT STABLE AT THIS TIME , DRIP AND SEDATION HELD , V/S STABLE , AFEBRILE , DPOA CONSENTED FOR PROCEDURE , ANESTHESIA AND BLOOD ,
--- NOTE | 2017-11-15 18:00 | NUR ---
ELECTRONIC HEALTH RECORDS SPECIALIST NOTES RECEIVED PATIENT S/P TRACH PLACEMENT ACCOMPANIED BY ANTOINETTE SIMMONS IN PLACE , SUTURES IN PLACE , NOTED WITH MINIMAL BLEEDING , TOLERATING CURRENT VENT SETTINGS SPO2 OF 100% , DRIPS AND SEDATION RE STARTED PT NOTED WITH AGITATION , POST OP ORDERS RECEIVED , WILL CONTINUE TO MONITOR
--- NOTE | 2017-11-15 20:00 | NUR ---
received pt from day shift, sedated on Diprivan at 35mcg, versed at 29mg, morphine at 15mg, fentanyl at 627mcg, SR, on the vent, lungs congested, BL hand edema, f/c good output, restrains on, v/s stable, no pain, pt turned and repositioned.
[2017-11-16] VITALS (54 sets, daily range): BP systolic 90–145; BP diastolic 43–87
[2017-11-16] MEDS: PROPOFOL 100 ML IV PRN ×5 (00:34→18:24)
[2017-11-16] MEDS: FENTANYL CITRAT IV 2,500 MCG in IV NS 0.9% 200 ML IV PRN ×6 (00:34→21:33)
--- NOTE | 2017-11-16 00:49 | NUR ---
pt is resting in the bed, sedated, v/s stable, no pain, pt turned and repositioned q2hrs.
[2017-11-16] MEDS: ACETAMINOPHEN 650 MG/20.3 ML UDC NG PRN (01:36)
[2017-11-16] MEDS: METOCLOPRAMIDE HCL 10 MG/10 ML UDC PO SCH ×3 (01:36→17:08)
[2017-11-16] MEDS: MEROPENEM 1 G in IV NS 0.9% 100 ML IV SCH ×3 (04:12→21:13)
--- NOTE | 2017-11-16 04:39 | NUR ---
pt is resting in the bed, no acute distress overnight, sedated, v/s stable, no pain, pt cleaned, changed and repositioned q2hrs, good urine output, tolerates feeding.
[2017-11-16] MEDS: MIDAZOLAM HCL 100 MG in IV NS 0.9% 80 ML IV PRN ×4 (05:02→20:57)
[2017-11-16 05:19] LABS: CALCIUM, SERUM 8.1 mg/dL (8.5-10.1); POTASSIUM 3.8 mmol/L (3.5-5.1)
--- NOTE | 2017-11-16 07:15 | NUR ---
BRASS WIND INSTRUMENT MAKER NOTES RECEIVED PATIENT SEDATED , RESPONSIVE TO PAIN STIMULI , NOT IN ACUTE DISTRESS , RESPIRATIONS EVEN AND UNLABORED WITH SPO2 OF 100% VIA MECHANICAL VENTILATOR , TRACH OF ANTOINETTE # [address] , SR 89 ON BEDSIDE MONITOR , TY JUDD NGT IN PLACE WITH FIBERSOURCE @ 60ML/HR NOTED WITH 50 CC RESIDUALS , FC DRAINING VIA GRAVITY WITH CLEAR YELLOW URINE , BILATERAL SOFT WRIST RESTRAIN IN PLACE , PHYLLIS PICC LINE WITH DIPRIVAN @ 40MCG/KG/MIN , MORPHINE @ 15MG/HR , FENTANYL @ 7MCG/KG/MIN , VERSED @ 20MH/HR INFUSING WELL , RFA # 20 PATENT AND INTACT SL , ALL NEEDS ATTENDED , BED ON LOW AND LOCKED POSITION , SIDE RAILS X2 , HOB @ 35 , WILL CONTINUE TO MONITOR
[2017-11-16] MEDS: LORAZEPAM INJ 2 MG/ML VIAL IV PRN ×2 (07:39→21:18)
[2017-11-16] MEDS: HYDROMORPHONE INJ 0.5 MG/0.5 ML SYRINGE IV PRN (07:39)
[2017-11-16 07:58] LABS: ABG BASE EXCESS 11.1 mmol/L; ABG PCO2 54.3 mmHg (35.0-45.0); ABG PH 7.454 (7.350-7.450); ABG PO2 66.5 mmHg (75.0-100.0); AaDO2 228.9 mmHg; PEEP,BG 8 cm H2O; SITE, ABG Right Radial; VENT MODE, BG AC 24 500; VT, ABG 500 mL
[2017-11-16] MEDS: PANTOPRAZOLE 40 MG VIAL IV SCH (08:18)
[2017-11-16] MEDS: VANCOMYCIN 1.25 GM in IV D5W 500 ML IV SCH (08:18)
[2017-11-16] MEDS: LACTOBACILLUS RHAMNOSUS GG 1 EACH CAP.SPRINK GT SCH ×2 (08:19→17:08)
[2017-11-16] MEDS: FOLIC ACID 1 MG TABLET PO SCH (08:20)
[2017-11-16] MEDS: PAROXETINE HCL 20 MG TABLET NG SCH (08:21)
[2017-11-16] MEDS: THIAMINE HCL 100 MG TABLET PO SCH (08:21)
[2017-11-16] MEDS: Z GUARD REMEDY 2 OZ OINT TP SCH ×2 (08:22→21:13)
[2017-11-16] MEDS: PROSOURCE / PROSTAT (PYXIS) 30 ML UDC GT SCH (08:22)
[2017-11-16] MEDS: ENOXAPARIN SODIUM 40 MG/0.4 ML DISP.SYRIN SQ SCH (08:22)
[2017-11-16 08:24] LABS: BASOPHILS # (AUTO) 0.1 /CMM (0.0-0.2); BASOPHILS % (AUTO) 0.5 % (0.0-2.0); EOSINOPHILS # (AUTO) 0.3 /CMM (0.0-0.7); EOSINOPHILS % (AUTO) 2.7 % (0.0-6.0); HEMATOCRIT 27 % (39-51); MEAN CORPUSCULAR HEMOGLOBIN 32 PG (26.0-33.0); MEAN CORPUSCULAR HGB CONC 34 g/dl (31.0-36.0); MEAN CORPUSCULAR VOLUME 94 fL (80-96); MONOCYTES # (AUTO) 0.6 /CMM (0.1-1.30); MONOCYTES % (AUTO) 6.8 % (2.0-12.0); NEUTROPHILS # (AUTO) 6.4 /CMM (1.8-8.9); PLATELET COUNT (AUTO) 319 /CMM (150-450); RDW COEFFICIENT OF VARIATION 13.4 (11.5-15.0); RED BLOOD CELL COUNT(AUTO) 2.85 MIL/uL (4.5-6.0); WHITE BLOOD COUNT (AUTO) 9.3 K/uL (4.3-11.0)
--- NOTE | 2017-11-16 08:30 | NUR ---
PRODUCER NOTES SEEN AND EVALUATED BY DR PANG, DISCUSSED DRIPS FOR SEDATION , LABS , CHEST XRAY AND ABG RESULT , NO FEVER , V/S STABLE , GOOD URINE OUTPUT , TOLERATING GT FEEDING , PENDING TRIGLYCERIDES LEVEL , S/P TRACH PLACEMENT YESTERDAY BY DR ROSALES , PER MD CHANGE PEEP TO 10 AND TITRATE FIO2 , ORDERS CARRIED OUT
[2017-11-16] MEDS: COLISTIMETHATE SODIUM 150 MG VIAL NEB SCH ×2 (08:56→21:09)
[2017-11-16 10:18] LABS: PHOSPHORUS 4.7 mg/dL (2.5-4.9)
--- NOTE | 2017-11-16 10:30 | NUR ---
ELECTROLYTIC DE SCALER NOTES SEEN AND EVALUATED BY VANESSA ALARCON , DISCUSSED LABS , CHEST XRAY , VENT SETTING , SEDATION DRIP , AFEBRILE HAVING GOOD URINE OUTPUT , S/P TRACH PLACEMENT , BARREL ENDSHAKER ADJUSTER AWARE ,
--- NOTE | 2017-11-16 11:50 | NUR ---
HOTEL OPERATIONS MANAGER NOTES TEMP OF 102.8 , NOTIFIED VANESSA ALARCON , S/P DAVID , BLADE CHANGER AWARE NO NEW ORDERS RECEIVED ,ADVISE TO GIVE TYLENOL PRN
[2017-11-16] MEDS ORDERED: VANCOMYCIN 1 GM in IV D5W 250 ML IV SCH (16:00)
--- NOTE | 2017-11-16 16:00 | NUR ---
KNOCK OUT HAND NOTES PATIENT NOTED TO HAVE 200ML RESIDUALS , PUSH BACK RESIDUALS AND HELD NGT FEEDING , WILL CONTINUE TO MONITOR
--- NOTE | 2017-11-16 18:21 | NUR ---
DRY CHAIN OFFBEARER NOTES CALLED JU KEYS , DISCUSSED THAT DR NIEVES IS PLANING TO DO PEG INSERTION ABBEY , EXPLAINED THE RISK AND BENEFITS OF THE PROCEDURE , LUDMILA VERBALIZED UNDERSTANDING BUT STILL WANTS TO TALK TO DR NIEVES BEFORE SIGNING THE CONSENT , WILL CALL DR NIEVES TO COMMUNICATE WITH LUDMILA .
--- NOTE | 2017-11-16 20:00 | NUR ---
Received patient with Dx: SEPSIS,ARDS.With multi sedation of Diprivan gtt,fentanyl gtt, morphine gtt. On vent support at prescribed settings. Well tolerated sating 96%-99%. Responsive to tactile stimuli but not following commands.Bilateral soft wrist restraints in place for safety measures.VS stable.SR 70's-90's.No acute distress noted.R nares NGT clamped placement verified.Residual 20 ml.Feeding restarted.HOB elevated.FC to gravity with clear yellow urine.Turned and repositioned.
--- NOTE | 2017-11-16 20:25 | NUR ---
LUDMILA DODD called and wants to talk to again before signing consent for PEG placement. She said she will be here in am between [id number] to sign consent.
[2017-11-17] VITALS (50 sets, daily range): BP systolic 89–124; BP diastolic 39–76
--- NOTE | 2017-11-17 | NUR ---
Patient remains sedated.NPO post MN for PEG placement today.NGT clamped.All iv's infusing well.
[2017-11-17] MEDS: FENTANYL CITRAT IV 2,500 MCG in IV NS 0.9% 200 ML IV PRN ×6 (01:46→23:16)
[2017-11-17] MEDS: MIDAZOLAM HCL 100 MG in IV NS 0.9% 80 ML IV PRN ×5 (01:54→21:40)
[2017-11-17] MEDS: METOCLOPRAMIDE HCL 10 MG/10 ML UDC PO SCH ×3 (02:03→17:30)
[2017-11-17] MEDS: PROPOFOL 100 ML IV PRN ×3 (02:30→17:09)
[2017-11-17] MEDS: MEROPENEM 1 G in IV NS 0.9% 100 ML IV SCH ×2 (04:58→13:04)
[2017-11-17 05:09] LABS: CALCIUM, SERUM 8.1 mg/dL (8.5-10.1); CREATININE 0.9 mg/dL (0.6-1.3); PHOSPHORUS 3.6 mg/dL (2.5-4.9); POTASSIUM 4.4 mmol/L (3.5-5.1)
[2017-11-17 05:52] LABS: BASOPHILS # (AUTO) 0.1 /CMM (0.0-0.2); BASOPHILS % (AUTO) 0.7 % (0.0-2.0); EOSINOPHILS # (AUTO) 0.3 /CMM (0.0-0.7); EOSINOPHILS % (AUTO) 3.1 % (0.0-6.0); HEMATOCRIT 24 % (39-51); HEMOGLOBIN 8.1 g/dL (13.5-17.5); LYMPHOCYTES # (AUTO) 1.9 /CMM (0.8-4.8); LYMPHOCYTES % (AUTO) 19.3 % (20.0-44.0); MEAN CORPUSCULAR HEMOGLOBIN 32 PG (26.0-33.0); MEAN CORPUSCULAR HGB CONC 34 g/dl (31.0-36.0); MEAN CORPUSCULAR VOLUME 93 fL (80-96); MONOCYTES # (AUTO) 0.7 /CMM (0.1-1.30); MONOCYTES % (AUTO) 6.7 % (2.0-12.0); NEUTROPHILS # (AUTO) 6.8 /CMM (1.8-8.9); NEUTROPHILS % (AUTO) 70.2 % (43.0-81.0); PLATELET COUNT (AUTO) 307 /CMM (150-450); RDW COEFFICIENT OF VARIATION 12.9 (11.5-15.0); RED BLOOD CELL COUNT(AUTO) 2.57 MIL/uL (4.5-6.0); WHITE BLOOD COUNT (AUTO) 9.7 K/uL (4.3-11.0)
--- NOTE | 2017-11-17 06:00 | NUR ---
Patient resting in no acute distress.VS stable.SR.Remains sedated on Diprivan gtt,morphine gtt,fentanyl gtt and versed gtt.Received one dose of Ativan for agitation.AM care done.Large volume of urine output.NPO maintained.Still consent to be sign.Pre op check list initiated.Turned and repositioned.
[2017-11-17] MEDS: COLISTIMETHATE SODIUM 150 MG VIAL NEB SCH (07:39)
--- NOTE | 2017-11-17 07:39 | NUR ---
RT PATIENT REC'D TRACHED ON [facility] VENT WITH SETTINGS SET BY . VENT ALARMS CHECKED + AUDIBLE. CUFF PRESSURE CHECKED CHIEF PROGRAM OFFICER. TRACH SECURE AND IN PROPER POSITION. PATIENT SEDATED, NON RESPONSIVE TO VERBAL COMMANDS. SUCTIONED WITH SMALL AMT OF PALE SEMITHICK SECRETIONS. B/S OPHELIA. AMBU BAG AT HOB Addendum: 11/17/17 at 0938 by JAROCHO PARRA RT Amended: Links added.
[2017-11-17] MEDS: LACTOBACILLUS RHAMNOSUS GG 1 EACH CAP.SPRINK GT SCH ×2 (08:27→16:16)
[2017-11-17] MEDS: FOLIC ACID 1 MG TABLET PO SCH (08:27)
[2017-11-17] MEDS: PANTOPRAZOLE 40 MG VIAL IV SCH (08:27)
[2017-11-17] MEDS: PAROXETINE HCL 20 MG TABLET NG SCH (08:27)
[2017-11-17] MEDS: PROSOURCE / PROSTAT (PYXIS) 30 ML UDC GT SCH (08:27)
[2017-11-17] MEDS: THIAMINE HCL 100 MG TABLET PO SCH (08:28)
[2017-11-17] MEDS: Z GUARD REMEDY 2 OZ OINT TP SCH ×2 (08:28→21:34)
[2017-11-17] MEDS: ENOXAPARIN SODIUM 40 MG/0.4 ML DISP.SYRIN SQ SCH ×2 (08:28→17:36)
--- NOTE | 2017-11-17 08:45 | NUR ---
PATIENT SCHEDULED FOR PEG PLACEMENT TODAY AT 0900-ATTEMPTED TO CALL LUDMILA ESCOTO FOR CONSENT-LEFT [facility] ICU PHONE NUMBER TO CALL BACK. UNABLE TO LEAVE MESSAGE ON PHONE. OR AWARE THAT NO CONSENT SIGNED YET FOR ABOVE PROCEDURE.
--- NOTE | 2017-11-17 09:00 | NUR ---
PATIENT DPOA AT BEDSIDE. STATED THAT SHE STILL NEED TO SPEAK TO DR. NIEVES REGARDING PROCEDURE. SURGERY MADE AWARE. MD TO SPEAK TO DPOA.
--- NOTE | 2017-11-17 11:00 | NUR ---
SURGICAL TEAM AT BEDSIDE. DPOA AT CASE MANAGEMENT/ASSEMBLER WET WASH OFFICE AT THIS TIME. NO CONSENT SIGNED . ANESTHESIOLOGIST DR. MULLIGAN AT BEDSIDE. PER MD-PROCEDURE CANCELLED DUE TO PATIENT HIGH VENT SETTINGS. PS 10 WITH SPO2 94%. WILL RE-EVALUATE.
--- NOTE | 2017-11-17 11:30 | NUR ---
JON DODD MADE AWARE OF PROCEDURE CANCELLED TODAY .
--- NOTE | 2017-11-17 12:00 | NUR ---
reception centre manager Javon and PHU met with pt. in CM office to discuss the validity of the DPOA that was presented to [facility]. Javon explained to pt. that we would need the original DPOA as this is a copy. Mary Ellen started yelling at Javon and PHU stating that " we are not helping her and causing her more problems". PHU reiterated with Mary Ellen the legality and importance of having the original DPOA and not a faxed copy that was sent from a [employer] office. Mary Ellen informed us that she does not have the original DPOA as it is with the lpn rn. Javon gave Mary Ellen his business card and requested for her to send the original by mail if she cannot provide it in person. PHU also looked up the karina Crawfordlouiekenan online and was able to get a phone contact number. PHU called the number and it was a [employer] store with a voicemail setup. PHU contacted Roe [facility] Human Resources Executive office to inquire if this karina Crawfordclayton is valid, however Padmini [facility] route clerk officer Rachael informed PHU that she cannot provide that information via phone and PHU has to request it in writing and mail it.
--- NOTE | 2017-11-17 15:15 | NUR ---
NO SIGNIFICANT CHANGES IN CONDITION. REMAINS AFEBRILE. BP STABLE.
[2017-11-17] MEDS: IV NS 0.9% 100 ML IV PRN (18:16)
--- NOTE | 2017-11-17 18:45 | NUR ---
AFEBRILE THE WHOLE SHIFT. BP STABLE. KEEP PATIENT NPO PER GI.
--- NOTE | 2017-11-17 19:30 | NUR ---
Received patient resting with multiple sedation and on full vent support.Open eyes to tactile stimuli but not following commands.Safety measures maintained.Remains NPO with R NGT clamped.Placement verified and patent.FC with moderate clear yellow urine.Will turn and reposition Q 2 hrs for skin precaution.VS stable.SR 70'S.Continue monitoring.
--- NOTE | 2017-11-17 21:55 | NUR ---
PT RECEIVED TRACHED SHLY 8 ON 840 VENT. NO RESP DISTRESS. PT TOLERATING VENT SETTINGS. SX'D FOR SML AMT OF TINGED SECRETIONS. VENT ALARMS SET AND AUDIBLE. AMBU BAG AT BEDSIDE. TRACH CUFF HEATING OPERATORS ENGINEER. WILL CONTINUE TO MONITOR. Addendum: 11/17/17 at 2156 by QUINTIN OLSON RT Amended: Links added.
[2017-11-18] VITALS (44 sets, daily range): BP systolic 88–151; BP diastolic 37–71
--- NOTE | 2017-11-18 | NUR ---
AM care done.Patient turned and repositioned.Open eyes but not tracking or following commands.No distress noted.
[2017-11-18] MEDS: PROPOFOL 100 ML IV PRN ×3 (00:34→18:09)
[2017-11-18] MEDS: METOCLOPRAMIDE HCL 10 MG/10 ML UDC PO SCH ×3 (02:06→17:33)
[2017-11-18] MEDS: MIDAZOLAM HCL 100 MG in IV NS 0.9% 80 ML IV PRN ×5 (02:13→21:11)
[2017-11-18] MEDS: FENTANYL CITRAT IV 2,500 MCG in IV NS 0.9% 200 ML IV PRN ×5 (03:48→22:01)
--- NOTE | 2017-11-18 04:00 | NUR ---
Patient resting.VS stable.Oral care and trach site care and trach tie changed.No distress noted. Turned and repositioned.
[2017-11-18 05:41] LABS: CALCIUM, SERUM 8.5 mg/dL (8.5-10.1); CREATININE 0.8 mg/dL (0.6-1.3); POTASSIUM 3.8 mmol/L (3.5-5.1)
--- NOTE | 2017-11-18 07:00 | NUR ---
No significant change noted during the shift.VS stable.SR.All sedation infusing well.Turned and repositioned.
[2017-11-18 07:30] LABS: BASOPHILS % (AUTO) 0.6 % (0.0-2.0); EOSINOPHILS # (AUTO) 0.4 /CMM (0.0-0.7); EOSINOPHILS % (AUTO) 5.1 % (0.0-6.0); HEMATOCRIT 23 % (39-51); HEMOGLOBIN 7.8 g/dL (13.5-17.5); LYMPHOCYTES # (AUTO) 1.9 /CMM (0.8-4.8); LYMPHOCYTES % (AUTO) 25.2 % (20.0-44.0); MEAN CORPUSCULAR HEMOGLOBIN 32 PG (26.0-33.0); MEAN CORPUSCULAR HGB CONC 34 g/dl (31.0-36.0); MEAN CORPUSCULAR VOLUME 93 fL (80-96); MONOCYTES # (AUTO) 0.5 /CMM (0.1-1.30); MONOCYTES % (AUTO) 6.4 % (2.0-12.0); NEUTROPHILS # (AUTO) 4.7 /CMM (1.8-8.9); NEUTROPHILS % (AUTO) 62.7 % (43.0-81.0); PLATELET COUNT (AUTO) 299 /CMM (150-450); RDW COEFFICIENT OF VARIATION 13.1 (11.5-15.0); RED BLOOD CELL COUNT(AUTO) 2.44 MIL/uL (4.5-6.0); WHITE BLOOD COUNT (AUTO) 7.6 K/uL (4.3-11.0)
[2017-11-18] MEDS: PANTOPRAZOLE 40 MG VIAL IV SCH (07:49)
--- NOTE | 2017-11-18 08:00 | NUR ---
TRACH TO FULL VENT SUPPORT.SEDATED WITH 4 DRIPS. OPENS EYES TO TACTILE BU DOESN'T TRACK TO SPEAKER. BP STABLE. AFEBRILE.
[2017-11-18] MEDS: FOLIC ACID 1 MG TABLET PO SCH (09:09)
[2017-11-18] MEDS: THIAMINE HCL 100 MG TABLET PO SCH (09:09)
[2017-11-18] MEDS: ENOXAPARIN SODIUM 40 MG/0.4 ML DISP.SYRIN SQ SCH (09:09)
[2017-11-18] MEDS: LACTOBACILLUS RHAMNOSUS GG 1 EACH CAP.SPRINK GT SCH ×2 (09:10→17:33)
[2017-11-18] MEDS: PAROXETINE HCL 20 MG TABLET NG SCH (09:10)
[2017-11-18] MEDS: Z GUARD REMEDY 2 OZ OINT TP SCH ×2 (09:11→21:03)
[2017-11-18] MEDS: PROSOURCE / PROSTAT (PYXIS) 30 ML UDC GT SCH (09:12)
[2017-11-18 09:50] LABS: ABG BASE EXCESS 9.9 mmol/L; ABG OXYGEN SATURATION 96.7 % (92.0-98.5); ABG PH 7.467 (7.350-7.450); ABG PO2 96.8 mmHg (75.0-100.0); AaDO2 204.6 mmHg; COHb 1.6 % (0.5-1.5); MetHb 0.7 % (0.0-1.5); O2Hb 94.5 % (94.0-97.0); PEEP,BG 10 cm H2O; SITE, ABG Right Radial; VENT MODE, BG AC 24; VT, ABG 500 mL
--- NOTE | 2017-11-18 10:30 | NUR ---
SEEN AND EXAMINED BY DR. BIRD OSHEA RESULT SEEN. NO VENT CHANGES AT THIS TIME. TITRATE MORPHINE DRIP FIRST PER MD. FOLLOWED BY FENTANYL. WILL TITRATE ABLE.
--- NOTE | 2017-11-18 16:00 | NUR ---
SEEN BY ACNP. TDE ,MAY RESTART TUBE FEEDING PREVIOUSLY ORDERED.
[2017-11-18] MEDS: FIBERSOURCE HN 1,000 ML BOTTLE GT PRN (17:33)
[2017-11-18] MEDS: IV NS 0.9% 100 ML IV PRN (17:35)
--- NOTE | 2017-11-18 19:30 | NUR ---
Patient resting open eyes spontaneously not tracking or following commands.VS stable.SR. Maintained on multiple sedation morphine gtt,Diprivan gtt,fentanyl gtt and versed gtt. via PHYLLIS PICC LINE and site intact.On full vent support with prescribed settings well tolerated. Tube feeding in progress via right NGT.Placement verified with scanty residual.FC to gravity with clear yellow urine.Turned and repositioned.
[2017-11-18] MEDS: LORAZEPAM INJ 2 MG/ML VIAL IV PRN (20:48)
--- NOTE | 2017-11-18 20:50 | NUR ---
Patient awake confused very agitated trying to reach ET tube kicking side rails and trashing in bed.Bilateral soft wrist restraints applied for safety.Diprivan gtt titrated up to 40 mcg,morphine gtt up to 15 mg/hr,Fentanyl gtt up to 7 mcg/kg/hr and Ativan 2 mg iv as PRN.Closely monitored.
[2017-11-19] VITALS (65 sets, daily range): BP systolic 92–180; BP diastolic 40–100
--- NOTE | 2017-11-19 | NUR ---
Patient scheduled for PEG placement to follow in am per OR schedule.Kept NPO post MN.Still no consent.
[2017-11-19] MEDS: PROPOFOL 100 ML IV PRN ×5 (00:09→20:07)
[2017-11-19] MEDS: METOCLOPRAMIDE HCL 10 MG/10 ML UDC PO SCH ×3 (01:45→17:31)
[2017-11-19] MEDS: MIDAZOLAM HCL 100 MG in IV NS 0.9% 80 ML IV PRN ×4 (01:48→19:32)
[2017-11-19] MEDS: FENTANYL CITRAT IV 2,500 MCG in IV NS 0.9% 200 ML IV PRN ×5 (01:56→19:14)
[2017-11-19 04:42] LABS: BASOPHILS % (AUTO) 0.4 % (0.0-2.0); EOSINOPHILS # (AUTO) 0.4 /CMM (0.0-0.7); EOSINOPHILS % (AUTO) 4.6 % (0.0-6.0); HEMATOCRIT 24 % (39-51); LYMPHOCYTES # (AUTO) 1.7 /CMM (0.8-4.8); LYMPHOCYTES % (AUTO) 20.1 % (20.0-44.0); MEAN CORPUSCULAR HEMOGLOBIN 31 PG (26.0-33.0); MEAN CORPUSCULAR HGB CONC 34 g/dl (31.0-36.0); MEAN CORPUSCULAR VOLUME 92 fL (80-96); MONOCYTES # (AUTO) 0.6 /CMM (0.1-1.30); NEUTROPHILS # (AUTO) 5.8 /CMM (1.8-8.9); NEUTROPHILS % (AUTO) 67.9 % (43.0-81.0); PLATELET COUNT (AUTO) 318 /CMM (150-450); RDW COEFFICIENT OF VARIATION 13.3 (11.5-15.0); RED BLOOD CELL COUNT(AUTO) 2.58 MIL/uL (4.5-6.0); WHITE BLOOD COUNT (AUTO) 8.5 K/uL (4.3-11.0)
--- NOTE | 2017-11-19 06:40 | NUR ---
Patient resting and sedated.VS stable.AM care done.No distress noted.Turned and repositioned. Diprivan gtt titrated down to 20 mcg/kg/min.Continue monitoring.
--- NOTE | 2017-11-19 06:45 | NUR ---
Patient DPOA,Mary Ellen Cordero called to notify her about patient scheduled for PEG placement today.Needs consent to be sign but unable to reach her.Phone no.listed # [phone] is wrong no. AND phone #[phone] is full.Will endorse to AM shift RN for continuity of care.
--- NOTE | 2017-11-19 07:20 | NUR ---
FOOD AND BEVERAGE LEAD: Mary Ellen Cordero (pt.jessica, information re DPOA is fake by report, charge nurse is aware) called, spoke with CRISTINA Prakash and gave consent for PEG/GT placement, I confirmed Mary Ellen call and her agreement for PEG/GT placement, pt.is sedated with Diprivan 20 mcg/kg/m, Versed 22 mg/h (max30), Morphine 15mg/h(max), Fentanyl 627mcg/h(max), rest now, can open eyes spont., on wrists restraints, SR, SBP over 90, O2 sat. over 94%, NPO since MN
--- NOTE | 2017-11-19 07:50 | NUR ---
RT PATIENT REC'D TRACHED ON [facility] VENT WITH SETTINGS SET BY . VENT ALARMS CHECKED + AUDIBLE. CUFF PRESSURE CHECKED INFORMATION ASSURANCE ENGINEER. TRACH SECURE AND IN PROPER POSITION. PATIENT SEDATED, NON RESPONSIVE TO VERBAL COMMANDS. SUCTIONED WITH SMALL AMT OF PALE SEMITHICK SECRETIONS. B/S OPHELIA. AMBU BAG AT HOB Addendum: 11/19/17 at 1138 by JAROCHO PARRA RT Amended: Links added.
--- NOTE | 2017-11-19 07:50 | NUR ---
RESIDENTIAL MANAGER: Bakari, OR called/updated with pt.condition, gtts, sedation level, consent
[2017-11-19 07:58] LABS: ABG BASE EXCESS 11.8 mmol/L; ABG OXYGEN SATURATION 96.5 % (92.0-98.5); ABG PCO2 54.9 mmHg (35.0-45.0); ABG PH 7.453 (7.350-7.450); ABG PO2 99.5 mmHg (75.0-100.0); AaDO2 122.6 mmHg; COHb 0.3 % (0.5-1.5); MetHb 0.3 % (0.0-1.5); O2Hb 95.9 % (94.0-97.0); PEEP,BG 10 cm H2O; SITE, ABG Right Radial
[2017-11-19] MEDS: PANTOPRAZOLE 40 MG VIAL IV SCH (08:02)
--- NOTE | 2017-11-19 08:30 | NUR ---
DISPENSING OPTICIAN: DPOA copy form from Aden Chacon for Mary Ellen Goodson is in chart, pH 7.45, pCO2 54, pO2 99, peep 10, FiO2 40%, was in room/updated with pt.current VS, sedation level, gtts by charge nurse.
[2017-11-19] MEDS: PROSOURCE / PROSTAT (PYXIS) 30 ML UDC GT SCH (09:00)
[2017-11-19] MEDS: THIAMINE HCL 100 MG TABLET PO SCH (09:00)
[2017-11-19] MEDS: LACTOBACILLUS RHAMNOSUS GG 1 EACH CAP.SPRINK GT SCH ×2 (09:00→17:17)
[2017-11-19] MEDS: Z GUARD REMEDY 2 OZ OINT TP SCH ×2 (09:48→21:18)
[2017-11-19] MEDS: ENOXAPARIN SODIUM 40 MG/0.4 ML DISP.SYRIN SQ SCH (10:53)
--- NOTE | 2017-11-19 12:15 | NUR ---
SEO ASSISTANT: , (anestesiologist) notified re pt.current status, VS, sedation level, all drips/rates, labs, NPO, spoke with alexys Hyde, PEG was canceled for today (prob.on Wednesday), is consider re long use Diprivan syndrome, triglycerites 330, spoke with . Will titrate down Diprivan, increased Versed to 26mg/h.
--- NOTE | 2017-11-19 12:50 | NUR ---
PLANT BIOLOGY PROFESSOR per : Versed up to max 30mg/h, stopped Diprivan gtt, continue monitoring. YUKI Haney is in room, updated with all above, spoke with Mary Ellen in room, ok to resume NGTF, PO meds
[2017-11-19] MEDS: LORAZEPAM INJ 2 MG/ML VIAL IV PRN (13:43)
[2017-11-19] MEDS: PAROXETINE HCL 20 MG TABLET NG SCH (13:54)
[2017-11-19] MEDS: FOLIC ACID 1 MG TABLET PO SCH (13:54)
[2017-11-19] MEDS: diphenhydrAMINE HCL 50 MG/ML VIAL IV PRN (13:54)
--- NOTE | 2017-11-19 14:00 | NUR ---
CHEESEMAKER HELPER: pr.is extremely restless with extremities uncontrolled activity, coughing, tachypnea, ST up 149, SBP up 180-190, Ativan 2 mg IV given, per : resume Diprivan gtt, Mary Ellen is at BS, peep was changed to 8 before, max doses of Versed, Fentanyl, Morphine are running
--- NOTE | 2017-11-19 14:01 | NUR ---
OFF OF PROPOFOL PT IS FLAILING AND THRASHING ABOUT THE BED. HR 144 ST BP 190 /100. KICKING EQUIPMENT. LOOKS AROUND BUT DOES NOT VISUALLY TRACK OR FOLLOW COMMANDS, GIRLFRIEND UNABLE TO MAKE PT FOLLOW. DIPRIVAN TO RESUME
--- NOTE | 2017-11-19 17:22 | NUR ---
PEEP TITRATED TO [address] PANG ORDER Addendum: 11/19/17 at 1722 by JAROCHO PARRA RT Amended: Links added.
--- NOTE | 2017-11-19 17:32 | NUR ---
INCIDENT RESPONSE ENGINEER: pt.is sedated well now, rest, O2 sat. over 96%, SR, SBP over 90, peep5 now, titrated Versed to 22 mg/h, getting max of Morphine, Fentanyl gtts, Diprivan 20 mcg/kg/m now, NGTF residual WNL, keep HOB over 40, wrists restraints skin is intact, PM/skin care done
--- NOTE | 2017-11-19 21:01 | NUR ---
FIRER WATERTENDER. INITIAL ASSESSMENT. RECEIVED THE PT REST ON THE BED. TRACH TO VENT CONNECTED. SHILEY#8,AC 24,TV 500,FIO2 40%,PEEP 5. SAT 98%. NAVAL AIRCREWMAN SHOWING NSR. IV LT UPPER ARM PICC LINE IV DIPRIVAN 20MCG/KG/MIN,VERSED 20ML/H,MORPHINE 15MG/H,FENTANYL 7MCG/KG/H. FC PATENT. GERSON SOFT WRIST RESTRAINT CHECKED AND RELEASED. NO INJURY OR REDNESS NOTED. RT NARE NGT INTACT, FIBER SOURCE 50ML/H. HOB ELEVATED. TURN NAD REPOSITION Q2H. WILL CONTINUE TO MONITOR VITALS.
[2017-11-20] VITALS (52 sets, daily range): BP systolic 90–165; BP diastolic 44–99
[2017-11-20] MEDS: MIDAZOLAM HCL 100 MG in IV NS 0.9% 80 ML IV PRN ×6 (00:30→23:09)
[2017-11-20] MEDS: LORAZEPAM INJ 2 MG/ML VIAL IV PRN ×8 (00:40→22:34)
[2017-11-20] MEDS: diphenhydrAMINE HCL 50 MG/ML VIAL IV PRN ×5 (00:41→22:34)
[2017-11-20] MEDS: METOCLOPRAMIDE HCL 10 MG/10 ML UDC PO SCH ×3 (01:44→17:44)
[2017-11-20] MEDS: FENTANYL CITRAT IV 2,500 MCG in IV NS 0.9% 200 ML IV PRN ×4 (01:58→23:42)
[2017-11-20] MEDS: PROPOFOL 100 ML IV PRN ×3 (02:28→13:11)
--- NOTE | 2017-11-20 04:32 | NUR ---
SEED CLEANER. AM CARE. ORAL CARE, BED BATH GIVEN. LINEN CHANGED. REMAINING SAME VENT SETTINGS TOLERATED WELL. SAT 98%. CRAB BUTCHER AT THIS TIME SHOWING NSR, FC PATENT. GERSON SOFT WRIST RESTRAINT CHECKED AND RELEASED. NO INJURY OR REDNESS NOTED. IV LT UPPER ARM PICC LINE. DIPRIVAN 20MCG/KG/MIN, MORPHINE 15MCG/H. VERSED 2OML/H, FENTANYL 7MCG/KG/H. HOB ELEVATED. TURN AND REPOSITION Q2H. WILL CONTINUE TO MONITOR VITALS.
[2017-11-20 05:24] LABS: CALCIUM, SERUM 8.3 mg/dL (8.5-10.1); CREATININE 0.8 mg/dL (0.6-1.3)
--- NOTE | 2017-11-20 05:44 | NUR ---
RT PT RECEIVED TRACHED ON [facility] VENT W/ NOTED SETTING. ALARMS SET AND AUDIBLE. VENT TO RED OUTLET. AMBU BAG AT [facility]. TRACH PATENT AND SECURE VIA TRACH TIES. NO SOB OR RESP DISTRESS NOTED ON SHIFT. Addendum: 11/20/17 at 0548 by TIANNA BYRNES RT Amended: Links added.
--- NOTE | 2017-11-20 07:30 | NUR ---
DOWEL MACHINE OPERATOR: pt.is sedated with 7mcg/kg/h Fentanyl, Morphine 15mg/h, Versed 20mg/h, Diprivan 20mcg/kg/m, rest now, on wrists restraints, can open eyes spont., no eyes contact, no any tracking, SR, SBP over 90, O2 sat. over 96%, peep5 now, FiO2 40%, had 200ml NGTF residual/on hold, T100.5/will apply cooling measures
--- NOTE | 2017-11-20 08:00 | NUR ---
ROADWAY DESIGNER: NGT residual 15ml, resumed NGTF, getting Reglan, Protonix, keep HOB over 35, skin under restraints is intact, no edema
[2017-11-20] MEDS: LACTOBACILLUS RHAMNOSUS GG 1 EACH CAP.SPRINK GT SCH ×2 (08:20→16:49)
[2017-11-20] MEDS: PANTOPRAZOLE 40 MG VIAL IV SCH (08:20)
[2017-11-20] MEDS: THIAMINE HCL 100 MG TABLET PO SCH (08:20)
[2017-11-20] MEDS: FOLIC ACID 1 MG TABLET PO SCH (08:21)
[2017-11-20] MEDS: ACETAMINOPHEN 650 MG/20.3 ML UDC NG PRN (08:21)
[2017-11-20] MEDS: PAROXETINE HCL 20 MG TABLET NG SCH (08:21)
[2017-11-20] MEDS: FIBERSOURCE HN 1,000 ML BOTTLE GT PRN (08:22)
[2017-11-20] MEDS: ENOXAPARIN SODIUM 40 MG/0.4 ML DISP.SYRIN SQ SCH (08:36)
[2017-11-20] MEDS: PROSOURCE / PROSTAT (PYXIS) 30 ML UDC GT SCH (08:37)
[2017-11-20] MEDS: Z GUARD REMEDY 2 OZ OINT TP SCH ×2 (08:40→20:10)
--- NOTE | 2017-11-20 09:15 | NUR ---
PSYCHIATRIC NURSING ASSISTANT: pt.started agitating strong after suction/reposition, ST up 130, tachypnea, strong arms/legs activity, Ativan, Benadryl given, pharmacy updated with drips rates
--- NOTE | 2017-11-20 09:30 | NUR ---
DRY PLASTERER HELPER: hold NGTF d/t strong agitating, coughing
--- NOTE | 2017-11-20 10:00 | NUR ---
SCIENCE ANALYST: pt.is continuing extremely agitating with tachyphea RR 32-42, ST 120-135, SBP 163, Ativan is given, Max of Versed, Fentanyl, Morphine rates, will increase Diprivan rate, is in room, updated with all above, VS, suctions amount, ordered ABG
[2017-11-20 10:43] LABS: ABG BASE EXCESS 5.2 mmol/L; ABG OXYGEN SATURATION 92.6 % (92.0-98.5); ABG PCO2 38.7 mmHg (35.0-45.0); ABG PH 7.491 (7.350-7.450); ABG PO2 68.1 mmHg (75.0-100.0); AaDO2 172.6 mmHg; COHb 0.3 % (0.5-1.5); MetHb 0.8 % (0.0-1.5); O2Hb 91.6 % (94.0-97.0); SITE, ABG Right Radial; VENT MODE, BG AC 24 500 40 +5
--- NOTE | 2017-11-20 11:20 | NUR ---
DIESEL TECHNICIAN: YUKI Hnaey is in room, updated with pt.VS, all drips/rates, neuro status, labs, meds, I/O, NGTF, T, orders, see new orders
--- NOTE | 2017-11-20 14:30 | NUR ---
TELEVISION RECEIVER ANALYZER: Mary Ellen, pt jessica is in room/notified re pt.VS, drips, sedation level, orders, POC, spoke with . Pt had agitating episodes with ST, tachypnea, high BP, desaturation, got Ativan doses prn
--- NOTE | 2017-11-20 16:10 | NUR ---
TERRAPIN FISHER: pt.is rest now, will titrate Diprivan. NGTF residual 220, hold NGTF, keep HOB over 40
--- NOTE | 2017-11-20 18:00 | NUR ---
EVENT AV OPERATOR: pt.is rest and sedated well now, stopped Diprivan/continue monitoring, SR, SBP over 90, O2 sat. WNL, NGT residual 110 now, continue hold NGTF, all PM/skin care done
--- NOTE | 2017-11-20 19:30 | NUR ---
DEPARTMENT EDITOR: RECEIVED TRACH TO VENT PT AND TOLERATING VENT SETTINGS ORDERED. NO ACUTE DISTRESS, NO EVIDENCE OF DISCOMFORT. REMAINED SEDATED ON VERSED, FENTANYL AND MORPHINE. OPENS EYES, UNABLE TO TRACK. AFEBRILE. SR ON ARTIFICIAL INSEMINATION TECHNICIAN. BILAT. SOFT WRIST RESTRAINTS IN PLACE FOR EPISODES OF TRYING TO REACH TUBINGS. SKIN AND CIRCULATION WNL. HOB AT 35 DEGREES. WILL CONTINUE TO MONITOR.
--- NOTE | 2017-11-20 21:54 | NUR ---
PT RECEIVED TRACHED ON [facility] VENT W/ NOTED SETTING. ALARMS SET AND AUDIBLE. VENT TO RED OUTLET. AMBU BAG AT [facility]. TRACH PATENT AND SECURE VIA TRACH TIES. NO SOB OR RESP DISTRESS NOTED ON SHIFT Addendum: 11/20/17 at 2155 by NANO HOPE RT Amended: Links added.
[2017-11-21] VITALS (50 sets, daily range): BP systolic 86–122; BP diastolic 44–92
--- NOTE | 2017-11-21 00:15 | NUR ---
COUNTING MACHINE OPERATOR: GT RESIDUAL NOTED AT 100CC. WILL CONTINUE WT 35CC AT THIS TIME AND WILL INCREASE RIGOBERTO TO REACH MAX GOAL RATE AT 60CC/HR.
[2017-11-21] MEDS: METOCLOPRAMIDE HCL 10 MG/10 ML UDC PO SCH ×3 (01:08→17:14)
[2017-11-21] MEDS: IV NS 0.9% 250 ML IV PRN (01:09)
[2017-11-21] MEDS: LORAZEPAM INJ 2 MG/ML VIAL IV PRN ×2 (01:48→15:15)
[2017-11-21] MEDS: diphenhydrAMINE HCL 50 MG/ML VIAL IV PRN ×2 (02:41→15:15)
[2017-11-21] MEDS: MIDAZOLAM HCL 100 MG in IV NS 0.9% 80 ML IV PRN ×7 (02:44→23:09)
--- NOTE | 2017-11-21 03:06 | NUR ---
SUPERVISOR WET END: PT INTUBATED. GIVEN ETOMIDATE 10MG AND ROCK 60MG BY MARYJO Willoughby Addendum: 11/21/17 at 0657 by MANISHA RODAS RN CORRECTION: WRONG ENTRY. PLS DISREGARD NOTE.
[2017-11-21] MEDS: FENTANYL CITRAT IV 2,500 MCG in IV NS 0.9% 200 ML IV PRN ×6 (03:55→23:58)
--- NOTE | 2017-11-21 06:30 | NUR ---
WIRE WINDING MACHINE TENDER: NO SIGNIFICANT PILO DURING THE SHIFT. STILL OFF DIPRIVAN. GIVEN ATIVAN IVP AND BENADRYL FOR AGITATION WT GOOD EFFECT. STILL SEDATED ON VERSED AT 30ML/HR, FENTANYL AT 620MCG/HR AND MORPHINE DRIP AT 15MG/HR. GTF STILL AT 35ML/HR FOR RESIDUAL NOTED AT 100CC. ALL NEEDS MET. WILL ENDORSE TO DAY SHIFT FOR CONTINUITY OF CARE.
--- NOTE | 2017-11-21 07:15 | NUR ---
PLANT PHYSIOLOGIST NOTES RECEIVED PATIENT SEDATED , RESPONSIVE TO PAIN STIMULI , NOT IN ACUTE DISTRESS , RESPIRATIONS EVEN AND UNLABORED WITH SPO2 OF 100% VIA MECHANICAL VENTILATOR , TRACH OF ANTOINETTE # [address] , SR 76 ON BEDSIDE MONITOR , RIGHT NARE NGT IN PLACE WITH FIBERSOURCE @ 35ML/HR NOTED WITH 50 CC RESIDUALS , FC DRAINING VIA GRAVITY WITH CLEAR YELLOW URINE , BILATERAL SOFT WRIST RESTRAIN IN PLACE , PHYLLIS PICC LINE WITH MORPHINE @ 15MG/HR , FENTANYL @ 7MCG/KG/MIN , VERSED @ 30MH/HR INFUSING WELL , ALL NEEDS ATTENDED , BED ON LOW AND LOCKED POSITION , SIDE RAILS X2 , HOB @ 35 , WILL CONTINUE TO MONITOR
--- NOTE | 2017-11-21 07:29 | NUR ---
RT PATIENT REC'D TRACHED ON [facility] VENT WITH SETTINGS SET BY . VENT ALARMS CHECKED + AUDIBLE. CUFF PRESSURE CHECKED CYANIDE CASE HARDENER. SX'D WITH KRISTOPHER PATTERSON. B/S DIM COARSE. AMBU BAG AT HOB Addendum: 11/21/17 at 1758 by JAROCHO PARRA RT Amended: Links added.
[2017-11-21] MEDS: PROSOURCE / PROSTAT (PYXIS) 30 ML UDC GT SCH (08:13)
[2017-11-21] MEDS: PANTOPRAZOLE 40 MG VIAL IV SCH (08:14)
[2017-11-21] MEDS: PAROXETINE HCL 20 MG TABLET NG SCH (08:14)
[2017-11-21] MEDS: LACTOBACILLUS RHAMNOSUS GG 1 EACH CAP.SPRINK GT SCH ×2 (08:14→17:14)
[2017-11-21] MEDS: FOLIC ACID 1 MG TABLET PO SCH (08:14)
[2017-11-21] MEDS: Z GUARD REMEDY 2 OZ OINT TP SCH ×2 (08:15→20:14)
[2017-11-21] MEDS: ENOXAPARIN SODIUM 40 MG/0.4 ML DISP.SYRIN SQ SCH (08:15)
[2017-11-21] MEDS: THIAMINE HCL 100 MG TABLET PO SCH (08:15)
--- NOTE | 2017-11-21 08:15 | NUR ---
RAW STOCK MACHINE LOADER NOTES SEEN AND EVALUATED BY VANESSA ALARCON , DISCUSSED CURRENT V/S AND DRIPS FOR SEDATION , NO LABS ORDERED FOR TODAY . AFEBRILE , GT FEEDING OF FIBERSOURCE @ 35ML/HR WITH 50CC RESIDUALS , PENDING PEG PLACEMENT , VERIFIED WHEN IS THE PATIENT SCHEDULED FOR PEG PT IS ON MD MONIKA AWARE .
[2017-11-21 08:29] LABS: ABG BASE EXCESS 6.2 mmol/L; ABG OXYGEN SATURATION 96.2 % (92.0-98.5); ABG PCO2 48.1 mmHg (35.0-45.0); ABG PH 7.431 (7.350-7.450); ABG PO2 95.1 mmHg (75.0-100.0); AaDO2 134.8 mmHg; COHb 0.2 % (0.5-1.5); MetHb 0.6 % (0.0-1.5); O2Hb 95.4 % (94.0-97.0); SITE, ABG Right Radial
--- NOTE | 2017-11-21 09:00 | NUR ---
CINDER BLOCK MAKER NOTES UNABLE TO DO SEDATION VACATION PATIENT NOTED WITH AGITATION AND DISTRESS , Addendum: 11/21/17 at 1002 by SAUL PRICE RN OPENS EYES , NO TRACKING NOTED , DOESN'T FOLLOW COMMANDS
--- NOTE | 2017-11-21 10:45 | NUR ---
TNT POWDER WORKER NOTES SEEN AND EVALUATED BY DR RIVERA , DISCUSSED SEDATION DRIPS , OFF DIRPIVAN , CURRENT VENT SETTINGS WITH SPO2 OF 100% , ABG , LATEST V/S , OPENS EYES , NO TRACKING DOESN'T FOLLOW COMMANDS , GT FEEDING NOTED WITH 50 ML RESIDUALS , PENDING PEG PLACEMENT , MD AWARE , NO NEW ORDERS RECEIVED
--- NOTE | 2017-11-21 15:00 | NUR ---
BUSINESS CONTINUITY PLANNER NOTES PATIENT NOTED WITH AGITATION AND DISTRESS , ON MORPHINE @ 13MG/HR , FENTANYL @ 7MCG/KG/MIN , VERSED @ 30ML/HR , TITRATED MORPHINE TO 15MG/HR , WILL ADMINISTER PRN ATIVAN ORDERED , WILL CONTINUE TO MONITOR
--- NOTE | 2017-11-21 15:28 | NUR ---
DISPUTE RESOLUTION SPECIALIST NOTES PATIENT STILL AGITATED , HR OF 130'S WITH SIGNS OF DISCOMFORT AND DISTRESS , PRN ATIVAN AND BENADRYL GIVEN , NOT EFFECTIVE , WILL START PT ON DIPRIVAN DRIP
[2017-11-21] MEDS: PROPOFOL 100 ML IV PRN ×2 (15:34→23:56)
[2017-11-21] MEDS: FIBERSOURCE HN 1,000 ML BOTTLE GT PRN (17:14)
--- NOTE | 2017-11-21 19:00 | NUR ---
RN INITIAL NOTES RECEIVED PT CALM AND SEDATED ON BED WITH MORPHINE DRIP @ 15MG/HR, FENTANYL DRIP 7MCG/KG/MIN, VERSED 28MG/HR, AND DIPRIVAN @ 10MCG/KG/MIN. ON VENT WITH SETTINGS AC 24, TV 500, FIO2 40%, PEEP 8, SHILEY 8, SATURATING WELL, NO S/S OF RESP DISTRESS. SR ON THE MONITOR, HR 60'S. RIGHT NARE NGT ON FIBERSOURCE FEEDING OF 60MLS/HR , NO RESIDUALS, TOLERATING WELL. [place] IN PLACE. LEFT UPPER ARM PICC FLUSHED AND PATENT, NO S/S OF INFILTRATION/INFECTION, DRESSING CDI. BILATERAL WRIST RESTRAINTS IN PLACE FOR SAFETY. BED LOW AND LOCKED, SIDERAILS UP, BED ALARM ON. WILL CONTINUE TO MONITOR
--- NOTE | 2017-11-21 21:59 | NUR ---
pt received on vent via charted route and settings. ambu bag at bedside alarms set and audible. disconnect alarms checked. vent plugged into red outlet. tolerating vent settings at ths time. will continue to monitor Addendum: 11/21/17 at 2200 by RUKHSANA ROTHMAN RT Amended: Links added.
[2017-11-22] VITALS (44 sets, daily range): BP systolic 84–140; BP diastolic 40–95
[2017-11-22] MEDS: LORAZEPAM INJ 2 MG/ML VIAL IV PRN ×8 (00:10→20:43)
[2017-11-22] MEDS: diphenhydrAMINE HCL 50 MG/ML VIAL IV PRN ×3 (00:10→17:32)
[2017-11-22] MEDS: METOCLOPRAMIDE HCL 10 MG/10 ML UDC PO SCH ×3 (01:48→17:30)
[2017-11-22] MEDS: MIDAZOLAM HCL 100 MG in IV NS 0.9% 80 ML IV PRN ×7 (02:11→23:40)
[2017-11-22] MEDS: FENTANYL CITRAT IV 2,500 MCG in IV NS 0.9% 200 ML IV PRN ×4 (03:49→16:14)
[2017-11-22 05:28] LABS: BASOPHILS % (AUTO) 0.6 % (0.0-2.0); EOSINOPHILS # (AUTO) 0.9 /CMM (0.0-0.7); EOSINOPHILS % (AUTO) 10.7 % (0.0-6.0); HEMATOCRIT 24 % (39-51); HEMOGLOBIN 8.3 g/dL (13.5-17.5); MEAN CORPUSCULAR HEMOGLOBIN 31 PG (26.0-33.0); MEAN CORPUSCULAR HGB CONC 34 g/dl (31.0-36.0); MEAN CORPUSCULAR VOLUME 91 fL (80-96); MONOCYTES # (AUTO) 0.5 /CMM (0.1-1.30); MONOCYTES % (AUTO) 6.3 % (2.0-12.0); NEUTROPHILS # (AUTO) 5.1 /CMM (1.8-8.9); NEUTROPHILS % (AUTO) 59.4 % (43.0-81.0); PLATELET COUNT (AUTO) 333 /CMM (150-450); RDW COEFFICIENT OF VARIATION 13.8 (11.5-15.0); RED BLOOD CELL COUNT(AUTO) 2.67 MIL/uL (4.5-6.0); WHITE BLOOD COUNT (AUTO) 8.5 K/uL (4.3-11.0)
[2017-11-22 05:42] LABS: CALCIUM, SERUM 8.5 mg/dL (8.5-10.1); CREATININE 0.8 mg/dL (0.6-1.3); POTASSIUM 3.9 mmol/L (3.5-5.1)
--- NOTE | 2017-11-22 06:20 | NUR ---
RN CLOSING NOTES PT IS AWAKE AND AGITATED, PRN MEDICATIONS GIVEN TO AID IN SEDATION. OTHERWISE, PT REMAINS STABLE OF THE MOMENT. ALL DUE MEDS GIVEN, AM CARE PROVIDED. WILL ENDORSE PILO TO AM RN
--- NOTE | 2017-11-22 07:18 | NUR ---
DECREASED PEE FROM +8 TO +5 SPO2 100% Addendum: 11/22/17 at 0719 by AKE ROBERTS RT Amended: Links added.
[2017-11-22 08:43] LABS: ABG BASE EXCESS 4.6 mmol/L; ABG OXYGEN SATURATION 97.4 % (92.0-98.5); ABG PH 7.426 (7.350-7.450); ABG PO2 117.6 mmHg (75.0-100.0); AaDO2 114.7 mmHg; MetHb 0.6 % (0.0-1.5); O2Hb 96.8 % (94.0-97.0); PEEP,BG 5 cm H2O; SITE, ABG Right Radial; VT, ABG 500 mL
[2017-11-22] MEDS: LACTOBACILLUS RHAMNOSUS GG 1 EACH CAP.SPRINK GT SCH ×2 (09:06→17:29)
[2017-11-22] MEDS: PAROXETINE HCL 20 MG TABLET NG SCH (09:06)
[2017-11-22] MEDS: THIAMINE HCL 100 MG TABLET PO SCH (09:06)
[2017-11-22] MEDS: FOLIC ACID 1 MG TABLET PO SCH (09:06)
[2017-11-22] MEDS: Z GUARD REMEDY 2 OZ OINT TP SCH ×2 (09:07→20:31)
[2017-11-22] MEDS: PROSOURCE / PROSTAT (PYXIS) 30 ML UDC GT SCH (09:15)
[2017-11-22] MEDS: ENOXAPARIN SODIUM 40 MG/0.4 ML DISP.SYRIN SQ SCH (09:16)
[2017-11-22] MEDS: PANTOPRAZOLE 40 MG VIAL IV SCH (09:30)
--- NOTE | 2017-11-22 11:30 | NUR ---
ICU/RN: Lyndon Hansen rounds; per TEXTILE CONVERTER, consulted with case management for acute to acute transfer to another hospital where they will decide what to do with PEG placement. Dr Raza aware and has cleared pt for transfer on current meds.
--- NOTE | 2017-11-22 16:00 | NUR ---
ICU/RN: Dr Raza notified that Fentanyl doses would not be obtained until tomorrow - orders given to decrease Fentanyl and max morphine dose at 30mg/hr. Attempted to wean pt off sedation earlier, however pt became restless and agitated. Pt was able to follow some commands and yes/no questions with fiancee at bedside. Points to mouth/trach when asked if needed suctioning. When off sedation for long periods of time pt increasingly restless and agitated.
[2017-11-22] MEDS: FIBERSOURCE HN 1,000 ML BOTTLE GT PRN (17:30)
--- NOTE | 2017-11-22 21:00 | NUR ---
CASING FINISHER AND STUFFER - REC'D PT. ON MULTIPLE GTTS/TRACHED. FENTANYL AT 26.7 ML/HR, MSO4 GTT. AT 30 MG/HR & VERSED GTT. AT 30 ML/HR. NS AT TKO. ALL GTTS ON GHOTRA PUMPS. PT. WAS ADM. ATIVAN 2MG/IVP AT 20:15 DUE TO RESTLESSNESS. PHARMACIST ANTHONY WAS ON UNIT RE: PT'S GTTS. RT.NARE NGT HAS GOOD PLACEMENT NOTED W/60CC RESIDUALS. FDG OFF TEMPORARILY. VSS/AFEBRILE. [place] CATH TO GRAVITY W/GOOD UOP. ANTOINETTE #8-VENT SETTINGS AT AC-24,TV-500,40% & PEEP OF 5. RHONCHI AUSC. TO ALL LOBES. PT'S FIANCE AT BS. STATUS UPDATED GIVEN TO HER. CONT.POC.
--- NOTE | 2017-11-22 21:41 | NUR ---
PT RECEIVED TRACHED SHLY 8 ON 840 VENT. NO RESP DISTRESS. TOLERATING VENT SETTINGS. SX'D FOR SML AMT OF THICK SPARKS SECRETIONS. VENT ALARMS SET AND AUDIBLE. AMBU BAG AT BEDSIDE. VENT PLUGGED INTO RED OUTLET. WILL CONTINUE TO MONITOR. Addendum: 11/22/17 at 2143 by QUINTIN OLSON RT Amended: Links added.
[2017-11-23] VITALS (45 sets, daily range): BP systolic 87–167; BP diastolic 40–113
--- NOTE | 2017-11-23 | NUR ---
WEATHERIZATION DIRECTOR - NO CHANGES FROM INITIAL ASSESSMENT, EXCEPT FIBERSOURCE FDG RESTARTED. 20CC RESIDUALS AT MN. GOOD UOP PER DAVENPORT CATH TO GRAVITY. VENT SETTINGS UNCHANGED. PT.IS CURRENTLY RESTING W/EYES CLOSED. CONT.POC.
[2017-11-23] MEDS: LORAZEPAM INJ 2 MG/ML VIAL IV PRN ×4 (01:29→23:11)
[2017-11-23] MEDS: PROPOFOL 100 ML IV PRN ×4 (01:44→15:47)
--- NOTE | 2017-11-23 01:44 | NUR ---
WHEAT SHIPPER NOTES NOTED PATIENT AWAKE, RESTLESS, AGITATED, NOTED WITH ELEVATED HEART RATE 130, BP ELEVATED. TRYING TO GET OUT OF BED, KICKING. PRN ATIVAN WAS GIVEN, BUT INEFFECTIVE. DIPRIVAN WAS STARTED AT 5MCG AND TITRATED UP FOR SEDATION. ALL SAFETY MEASURES MET. WILL CONTINUE TO MONITOR.
[2017-11-23] MEDS: FENTANYL CITRAT IV 2,500 MCG in IV NS 0.9% 200 ML IV PRN ×3 (02:16→13:34)
[2017-11-23] MEDS: METOCLOPRAMIDE HCL 10 MG/10 ML UDC PO SCH ×3 (02:22→16:48)
[2017-11-23] MEDS: MIDAZOLAM HCL 100 MG in IV NS 0.9% 80 ML IV PRN ×6 (03:19→20:48)
--- NOTE | 2017-11-23 04:00 | NUR ---
CHECKED GT RESIDUAL, NOTED WITH RESIDUAL 60ML, DECREASED GTF TO 30ML/HR. WILL CONTINUE TO MONITOR.
[2017-11-23 05:02] LABS: BASOPHILS % (AUTO) 0.2 % (0.0-2.0); EOSINOPHILS # (AUTO) 0.5 /CMM (0.0-0.7); EOSINOPHILS % (AUTO) 4.1 % (0.0-6.0); HEMATOCRIT 25 % (39-51); HEMOGLOBIN 8.4 g/dL (13.5-17.5); LYMPHOCYTES # (AUTO) 1.5 /CMM (0.8-4.8); LYMPHOCYTES % (AUTO) 12.3 % (20.0-44.0); MEAN CORPUSCULAR HEMOGLOBIN 31 PG (26.0-33.0); MEAN CORPUSCULAR HGB CONC 34 g/dl (31.0-36.0); MEAN CORPUSCULAR VOLUME 91 fL (80-96); MONOCYTES # (AUTO) 0.6 /CMM (0.1-1.30); MONOCYTES % (AUTO) 4.9 % (2.0-12.0); NEUTROPHILS # (AUTO) 9.5 /CMM (1.8-8.9); NEUTROPHILS % (AUTO) 78.5 % (43.0-81.0); PLATELET COUNT (AUTO) 313 /CMM (150-450); RDW COEFFICIENT OF VARIATION 13.3 (11.5-15.0); RED BLOOD CELL COUNT(AUTO) 2.69 MIL/uL (4.5-6.0); WHITE BLOOD COUNT (AUTO) 12.1 K/uL (4.3-11.0)
[2017-11-23 05:17] LABS: CALCIUM, SERUM 8.6 mg/dL (8.5-10.1); CREATININE 0.8 mg/dL (0.6-1.3); POTASSIUM 3.8 mmol/L (3.5-5.1)
--- NOTE | 2017-11-23 06:00 | NUR ---
NOTED WITH RESIDUAL 100ML, GTF AT 30ML/HR. HELD GTF. WILL CONTINUE TO MONITOR.
--- NOTE | 2017-11-23 07:21 | NUR ---
LAYOUT TECHNICIAN CLOSING NOTES NO SIGNIFICANT CHANGES OVERNIGHT. NO RESPIRATORY DISTRESS NOTED. PATIENT RESTING COMFORTABLY AT THIS TIME. TOLERATING VENT SETTINGS. NOT TOLERATING GTF WELL, WITH RESIDUAL >100ML. GTF HELD AT THIS TIME. F/C PATENT AND INTACT, DRAINING BY GRAVITY. RIGHT NARE NGT IN PLACE, PATENT AND INTACT. PHYLLIS PICC LINE WITH VERSED RUNNING AT 30MG/HR, MORPHINE 30MG/HR, FENTANYL 3MCG/HR, DIPRIVAN 30MCG/KG/MIN, AND TKO. KEPT CLEAN AND DRY. TURNED AND REPOSITIONED Q2 AND PRN. WOUND TX PROVIDED. BILATERAL SOFT WRIST RESTRAINTS IN PLACE, CIRCULATION CHECKED. HOB ELEVATED. SIDE RAILS UP AND LOCKED. BED KEPT AT LOWEST POSITION. CONTINUITY OF CARE ENDORSED TO AM NURSE.
[2017-11-23] MEDS: PANTOPRAZOLE 40 MG VIAL IV SCH (07:45)
[2017-11-23] MEDS: PROSOURCE / PROSTAT (PYXIS) 30 ML UDC GT SCH (08:18)
[2017-11-23] MEDS: LACTOBACILLUS RHAMNOSUS GG 1 EACH CAP.SPRINK GT SCH ×2 (08:18→16:48)
[2017-11-23] MEDS: PAROXETINE HCL 20 MG TABLET NG SCH (08:19)
[2017-11-23] MEDS: THIAMINE HCL 100 MG TABLET PO SCH (08:19)
[2017-11-23] MEDS: FOLIC ACID 1 MG TABLET PO SCH (08:19)
[2017-11-23] MEDS: Z GUARD REMEDY 2 OZ OINT TP SCH ×2 (08:20→21:38)
[2017-11-23] MEDS: ENOXAPARIN SODIUM 40 MG/0.4 ML DISP.SYRIN SQ SCH (08:26)
--- NOTE | 2017-11-23 10:00 | NUR ---
DIPLOMATIC INTERPRETER RECEIVED PATIENT SEDATED ON PROPOFOL, FENTANYL, VERSED AND MORPHINE OPEN EYES WHEN CALLED ON MECHANICAL VENTILATORY SUPPORT SATURATING 98% ON FIBERSOURCE AT 30 ML/HR, RESIDUAL NOTED PATIENT IS MORE FRAIL AND VERY WEAK IN APPEARANCE MONITORED CLOSELY
--- NOTE | 2017-11-23 10:30 | NUR ---
EMPLOYMENT SPECIALIST PATIENT'S GIRLFRIEND ANGRILY ASKED ME WHY PATIENT WAS ON DIRPIVAN TRIED TO EXPLAINED IT TO HER BU SHE WENT BALLISTIC I CALLED MY CHARGE NURSE'S ATTENTION AND ASKED HER TO LEAVE FOR A MOMENT WHILE I AM DOING MY PHYSICAL ASSESSMENT TO THE PATIENT
[2017-11-23] MEDS: IV NS 0.9% 250 ML IV PRN (22:06)
[2017-11-23] MEDS: FIBERSOURCE HN 1,000 ML BOTTLE GT PRN (22:06)
--- NOTE | 2017-11-23 23:00 | NUR ---
CUT OFF SAW OPERATOR DIPRIVAN TITRATED OFF; PT CALM AT THIS TIME; HOWEVER PT UNABLE TO FOLLOW COMMANDS. CONTINUE TO MONITOR.
[2017-11-24] VITALS (35 sets, daily range): BP systolic 102–142; BP diastolic 54–91
[2017-11-24] MEDS: MIDAZOLAM HCL 100 MG in IV NS 0.9% 80 ML IV PRN ×7 (00:29→21:55)
[2017-11-24] MEDS: LORAZEPAM INJ 2 MG/ML VIAL IV PRN ×9 (00:56→17:44)
--- NOTE | 2017-11-24 01:20 | NUR ---
COMPUTED TOMOGRAPHY TECHNOLOGIST PT AGITATED; THRASHING AROUND IN BED; UNABLE TO REORIENT PT. FOAMING AT THE MOUTH. DIPRIVAN STARTED AT THIS TIME AT 5 MCG/KG/MIN. CONTINUE TO MONITOR.
[2017-11-24] MEDS: PROPOFOL 100 ML IV PRN (01:22)
[2017-11-24] MEDS: METOCLOPRAMIDE HCL 10 MG/10 ML UDC PO SCH ×3 (02:08→17:06)
--- NOTE | 2017-11-24 04:00 | NUR ---
COMMERCIAL MAKEUP ARTIST DIPRIVAN TITRATED OFF; CONTINUE TO MONITOR.
[2017-11-24] MEDS: diphenhydrAMINE HCL 50 MG/ML VIAL IV PRN ×3 (04:16→16:37)
--- NOTE | 2017-11-24 07:39 | NUR ---
Miguel pt received on mechanical vent. Pt trach is secure. Vent is plugged into a red outlet, alarms are set and audible, and BVM is at bedside. Addendum: 11/24/17 at 0741 by DELONTE HANLEY RT Amended: Links added.
[2017-11-24 07:44] LABS: BASOPHILS % (AUTO) 0.4 % (0.0-2.0); EOSINOPHILS # (AUTO) 0.4 /CMM (0.0-0.7); EOSINOPHILS % (AUTO) 3.8 % (0.0-6.0); HEMATOCRIT 27 % (39-51); HEMOGLOBIN 9.3 g/dL (13.5-17.5); LYMPHOCYTES # (AUTO) 1.9 /CMM (0.8-4.8); LYMPHOCYTES % (AUTO) 16.7 % (20.0-44.0); MEAN CORPUSCULAR HEMOGLOBIN 31 PG (26.0-33.0); MEAN CORPUSCULAR HGB CONC 34 g/dl (31.0-36.0); MEAN CORPUSCULAR VOLUME 91 fL (80-96); MONOCYTES # (AUTO) 0.6 /CMM (0.1-1.30); MONOCYTES % (AUTO) 5.3 % (2.0-12.0); NEUTROPHILS # (AUTO) 8.3 /CMM (1.8-8.9); NEUTROPHILS % (AUTO) 73.8 % (43.0-81.0); PLATELET COUNT (AUTO) 287 /CMM (150-450); RDW COEFFICIENT OF VARIATION 13.3 (11.5-15.0); RED BLOOD CELL COUNT(AUTO) 2.98 MIL/uL (4.5-6.0); WHITE BLOOD COUNT (AUTO) 11.2 K/uL (4.3-11.0)
[2017-11-24 07:47] LABS: CALCIUM, SERUM 8.7 mg/dL (8.5-10.1); CREATININE 0.9 mg/dL (0.6-1.3); POTASSIUM 3.9 mmol/L (3.5-5.1)
[2017-11-24] MEDS: PANTOPRAZOLE 40 MG VIAL IV SCH (07:54)
--- NOTE | 2017-11-24 08:01 | NUR ---
RN NOTES RECEIVED PT IN BED, TRACH MIDLINE. ON VENT SETTINGS PRESCRIBED. SHILEY 8 AC 24 TV 500 FIO2 40% PEEP 8. SUCTIONED FOR AIRWAY CLEARANCE. SR ON ANIMAL HUSBANDMAN HR 71 BPM AT THIS TIME. NGT ON R NARE FIBERSOURCE RUNNING @30ML/HR, 5 ML RESIDUAL NOTED AT THIS TIME. FC PATENT DRAINING ADEQUATE AMOUNT OF YELLOW COLOR URINE. PHYLLIS PICC LINE IN PLACE, DRESSING CDI, RUNNING VERSED@30ML/HR MORPHINE@30MG/HR, NS TKO. KEPT COMFORTABLE. PT AFEBRILE. REPOSITIONED FOR COMFORT. WILL MONITOR CLOSELY
[2017-11-24] MEDS: ENOXAPARIN SODIUM 40 MG/0.4 ML DISP.SYRIN SQ SCH (08:12)
[2017-11-24] MEDS: FOLIC ACID 1 MG TABLET PO SCH (08:12)
[2017-11-24] MEDS: PAROXETINE HCL 20 MG TABLET NG SCH (08:12)
[2017-11-24] MEDS: THIAMINE HCL 100 MG TABLET PO SCH (08:12)
[2017-11-24] MEDS: LACTOBACILLUS RHAMNOSUS GG 1 EACH CAP.SPRINK GT SCH ×2 (08:12→17:06)
[2017-11-24] MEDS: PROSOURCE / PROSTAT (PYXIS) 30 ML UDC GT SCH (08:13)
[2017-11-24 08:24] LABS: ABG BASE EXCESS 4.1 mmol/L; ABG OXYGEN SATURATION 95.9 % (92.0-98.5); ABG PCO2 42.2 mmHg (35.0-45.0); ABG PH 7.447 (7.350-7.450); ABG PO2 96.1 mmHg (75.0-100.0); AaDO2 140.6 mmHg; COHb 0.3 % (0.5-1.5); MetHb 0.9 % (0.0-1.5); O2Hb 94.7 % (94.0-97.0); PEEP,BG 8 cm H2O; SITE, ABG Left Radial; VT, ABG 500 mL
--- NOTE | 2017-11-24 09:14 | NUR ---
RN NOTES DR PANG AT BEDSIDE. PT WAS SEEN AND EVALUATED. ALL CURRENT EVENTS REPORTED. PT OFF DIPRIVAN AND FENTANYL. LATEST ABG RESULTS REPORTED. PER DR PANG DECREASE PEEP TO 5. ARIEL RT AT BEDSIDE.
--- NOTE | 2017-11-24 11:33 | NUR ---
RN NOTES DR BHAKTA AT BEDSIDE, PT WAS SEEN AND EVALUATED. PT ON VERSED @30MLS/HR, MORPHINE 30MG/HR. PER MD WILL TAPER DOWN SEDATION AND WILL ADD METHADONE. AWAITING FOR ORDERS.
[2017-11-24] MEDS: CLONIDINE HCL 0.3 MG/24H PTWK 1 EA PATCH TD SCH (14:17)
[2017-11-24] MEDS: METHADONE HCL 10 MG TABLET PO SCH (14:17)
[2017-11-24] MEDS: Z GUARD REMEDY 2 OZ OINT TP SCH ×2 (17:09→23:05)
[2017-11-24] MEDS: FIBERSOURCE HN 1,000 ML BOTTLE GT PRN (18:24)
--- NOTE | 2017-11-24 19:00 | NUR ---
MEDICAL STAFF SPECIALIST NOTES Received drowsy eyes open but no good eye contact,does not follow commands,moves all extremities but not to commands..with tracheostomy on th ventilator on AC mode.On sedation with Versed drip now @ 28 mg/hr and Morphine drip @ 26 ml/hr.Will wean down sedation as tolerated.NGT intact with on going feeding ,PICC line via PHYLLIS.Comfort care done ,needs attended.Aspiration precaution,Fall precaution observed.
--- NOTE | 2017-11-24 19:25 | NUR ---
RN NOTES PT IN BED, AWAKE, ABLE TO FOLLOW SOME COMMANDS. WITH EPISODES OF RESTLESSNESS AT TIMES. ONGOING VERSED @28MLS/HR AND MORPHINE @26MG/HR. WILL TAPER DOWN TOLERATED. ZGUARD APLLIED ON PERINEAL AREA AND SCARAL AREA ORDERED. REPOSITIONED FOR COMFORT. GTH RUNNING@60ML/HR TOLERATED WELL. DUE MEDS GIVEN, NEEDS ATTENDED. ENDORSED TO WOODY EVANS FOR CONTINUITY OF CARE
[2017-11-25] VITALS (41 sets, daily range): BP systolic 71–139; BP diastolic 37–88
--- NOTE | 2017-11-25 | NUR ---
LEAD SYSTEMS DEVELOPER NOTES Asleep,seems calm,awakens at times but not agitated.V/S stable,will try to wean down Morphine down to 25mg/hr and will observe if remains calm.
[2017-11-25] MEDS: MIDAZOLAM HCL 100 MG in IV NS 0.9% 80 ML IV PRN ×7 (01:52→22:33)
[2017-11-25] MEDS: METOCLOPRAMIDE HCL 10 MG/10 ML UDC PO SCH ×3 (02:51→17:41)
--- NOTE | 2017-11-25 04:30 | NUR ---
CHIEF CONTROLLER CENTER NOTES Awakens very agitated,kicking up legs off the side rails,trying to get off bed.Ativan 2 mg Iv given . 3625 Benadryl 50 mg IV given.
[2017-11-25] MEDS: LORAZEPAM INJ 2 MG/ML VIAL IV PRN ×4 (04:31→15:14)
[2017-11-25] MEDS: diphenhydrAMINE HCL 50 MG/ML VIAL IV PRN (04:36)
--- NOTE | 2017-11-25 05:00 | NUR ---
BALL SHAGGER NOTES Patient a little calmer now but still gets restless once in a while.Will try to wean down Versed drip again.Trache care done 0700 Report given to Loretta EVANS
--- NOTE | 2017-11-25 07:40 | NUR ---
ICU/RN PT HAS TRACH ON THE VENT AC MODE,FIO2-35%.SAT O2-100%. NEW TRACH AREA V/S STABLE,AFEBRILE.NO PAIN REPORTED AT THIS TIME.PT SEDATED ON MORPHINE DRIP AND VERSED DRIP.PICC LINE ON THE LEFT UPPER ARM NG TUBE INFUSING WITH FIBERSOURCE AT 60 ML/HR.80 ML RESIDUAL NOTED.F/C DRAINING WITH GREEN URINE.REDNESS ON NIMA AREA AND LOWER BACK NOTED.
[2017-11-25] MEDS: PAROXETINE HCL 20 MG TABLET NG SCH (08:07)
[2017-11-25] MEDS: PANTOPRAZOLE 40 MG VIAL IV SCH (08:07)
[2017-11-25] MEDS: LACTOBACILLUS RHAMNOSUS GG 1 EACH CAP.SPRINK GT SCH ×2 (08:07→17:34)
[2017-11-25] MEDS: THIAMINE HCL 100 MG TABLET PO SCH (08:07)
[2017-11-25] MEDS: METHADONE HCL 10 MG TABLET PO SCH (08:08)
[2017-11-25] MEDS: FOLIC ACID 1 MG TABLET PO SCH (08:08)
[2017-11-25] MEDS: IV NS 0.9% 250 ML IV PRN (08:09)
[2017-11-25] MEDS: ENOXAPARIN SODIUM 40 MG/0.4 ML DISP.SYRIN SQ SCH (08:09)
[2017-11-25] MEDS: Z GUARD REMEDY 2 OZ OINT TP SCH ×2 (08:22→20:52)
[2017-11-25] MEDS: PROSOURCE / PROSTAT (PYXIS) 30 ML UDC GT SCH (08:22)
--- NOTE | 2017-11-25 09:00 | NUR ---
ICU/RN SEDATION VACATION PROVIDED.PT IS OPEN HIS EYES,FOLLOWS COMMAND ,FORGETFUL AND AGITATED,
--- NOTE | 2017-11-25 10:00 | NUR ---
ICU/RN DUE MEDS ARE GIVEN ORDERED.PT IS VERY AGITATED.ATIVAN GIVEN ORDERED,MORPHINE DRIP AND VERSED DRIP INCREASED.
--- NOTE | 2017-11-25 17:00 | NUR ---
ICU/RN DUE MEDS ARE GIVEN ORDERED.PM CARE PROVIDED.REPOSITION FOR COMFORT.PT IS SEDATED AND CALM.V/S STABLE.
[2017-11-25] MEDS: HALOPERIDOL 1 MG TABLET PO SCH (17:34)
[2017-11-25] MEDS: FIBERSOURCE HN 1,000 ML BOTTLE GT PRN (19:55)
--- NOTE | 2017-11-25 20:04 | NUR ---
WELDING PANTOGRAPH MACHINE OPERATOR NOTES RECEIVED PT IN BED, KEPT COMFORTABLE AND MILDLY SEDATED WITH MORPHINE DRIP AND VERSED WITH PRN ATIVAN, OPENS EYES SPONTANEOUSLY. TELE READS SR AT 70 BPM, BP WNL. ON VENT VIA SHILEY 8 TRACH, AC 24 TV 500 FIO2 35% PEEP 5, TOLERATING WELL, NO DISTRESS NOTED. NGT AT RIGHT NARE IN PLACE, RUNNING FIBERSOURCE AT 60ML/HR, GASTRIC RESIDUAL OF 45 ML. [place] CATH IN PLACE, DRAINING WELL TO GRAVITY, CLEAR YELLOW URINE. PICC AT RIGHT UPPER ARM, DRESSING DRY AND INTACT, RUNNING VERSED AND MORPHINE. PERINEAL REDNESS AND EXCORIATION NOTED. TURNED AND REPOSITIONED, EXTREMITIES OFFLOADED, HOB ELEVATED. SIDE RAILS X4 WITH PADDING DUE TO OCCASIONAL AGITATION WITH KICKING.
--- NOTE | 2017-11-25 20:49 | NUR ---
PT RECEIVED TRACHED SHLY 8 ON 840 VENT. NO RESP DISTRESS. TOLERATING VENT SETTINGS. SX'D FOR SML AMT OF THICK PALE SECRETIONS. VENT ALARMS SET AND AUDIBLE. AMBU BAG AT BEDSIDE. VENT PLUGGED INTO RED OUTLET. WILL CONTINUE TO MONITOR. Addendum: 11/25/17 at 2049 by QUINTIN OLSON RT Amended: Links added.
[2017-11-26] VITALS (43 sets, daily range): BP systolic 90–167; BP diastolic 34–99
[2017-11-26] MEDS: METOCLOPRAMIDE HCL 10 MG/10 ML UDC PO SCH ×3 (01:20→17:00)
[2017-11-26] MEDS: MIDAZOLAM HCL 100 MG in IV NS 0.9% 80 ML IV PRN ×5 (02:11→19:56)
[2017-11-26 04:49] LABS: BASOPHILS # (AUTO) 0.1 /CMM (0.0-0.2); BASOPHILS % (AUTO) 0.6 % (0.0-2.0); EOSINOPHILS # (AUTO) 0.5 /CMM (0.0-0.7); EOSINOPHILS % (AUTO) 5.5 % (0.0-6.0); HEMATOCRIT 24 % (39-51); HEMOGLOBIN 8.2 g/dL (13.5-17.5); LYMPHOCYTES # (AUTO) 1.9 /CMM (0.8-4.8); LYMPHOCYTES % (AUTO) 19.7 % (20.0-44.0); MEAN CORPUSCULAR HEMOGLOBIN 31 PG (26.0-33.0); MEAN CORPUSCULAR HGB CONC 34 g/dl (31.0-36.0); MEAN CORPUSCULAR VOLUME 91 fL (80-96); MONOCYTES # (AUTO) 0.5 /CMM (0.1-1.30); MONOCYTES % (AUTO) 5.5 % (2.0-12.0); NEUTROPHILS # (AUTO) 6.5 /CMM (1.8-8.9); NEUTROPHILS % (AUTO) 68.7 % (43.0-81.0); PLATELET COUNT (AUTO) 266 /CMM (150-450); RDW COEFFICIENT OF VARIATION 13.7 (11.5-15.0); RED BLOOD CELL COUNT(AUTO) 2.64 MIL/uL (4.5-6.0); WHITE BLOOD COUNT (AUTO) 9.5 K/uL (4.3-11.0)
[2017-11-26 04:55] LABS: CALCIUM, SERUM 8.9 mg/dL (8.5-10.1); CREATININE 0.7 mg/dL (0.6-1.3)
[2017-11-26] MEDS: LORAZEPAM INJ 2 MG/ML VIAL IV PRN ×4 (06:22→22:55)
[2017-11-26] MEDS: diphenhydrAMINE HCL 50 MG/ML VIAL IV PRN ×2 (06:40→23:21)
--- NOTE | 2017-11-26 07:45 | NUR ---
RN NOTES RECEIVED PT IN BED, SEDATED WITH MORPHINE DRIP AND VERSED DRIP. SR AT 70 BPM, ON SEROLOGIST, BP WNL 93/52. ON VENT VIA SHILEY 8 TRACH, AC 24 TV 500 FIO2 35% PEEP 5, TOLERATING WELL, NO DISTRESS NOTED. NGT AT RIGHT NARE IN PLACE, RUNNING FIBERSOURCE AT 60ML/HR, GASTRIC RESIDUAL OF 15 ML NOTED. [place] CATH IN PLACE, DRAINING WELL TO GRAVITY, CLEAR YELLOW URINE. PICC AT RIGHT UPPER ARM, DRESSING DRY AND INTACT, RUNNING VERSED@30ML/HR AND MORPHINE @30MG/HR. PERINEAL REDNESS AND EXCORIATION NOTED. TURNED AND REPOSITIONED, EXTREMITIES OFFLOADED, HOB ELEVATED. SIDE RAILS X4 WITH PADDING DUE TO OCCASIONAL AGITATION WITH KICKING. WILL MONITOR CLOSELY
[2017-11-26] MEDS ORDERED: PAROXETINE HCL 20 MG TABLET GT SCH (09:00)
[2017-11-26] MEDS: HALOPERIDOL 1 MG TABLET PO SCH ×2 (09:00→13:09)
[2017-11-26] MEDS: METHADONE HCL 10 MG TABLET PO SCH (09:12)
[2017-11-26] MEDS: FOLIC ACID 1 MG TABLET PO SCH (09:12)
[2017-11-26] MEDS: THIAMINE HCL 100 MG TABLET PO SCH (09:12)
[2017-11-26] MEDS: LACTOBACILLUS RHAMNOSUS GG 1 EACH CAP.SPRINK GT SCH ×2 (09:13→16:59)
[2017-11-26] MEDS: PANTOPRAZOLE 40 MG VIAL IV SCH (09:23)
[2017-11-26] MEDS: PROSOURCE / PROSTAT (PYXIS) 30 ML UDC GT SCH (09:23)
[2017-11-26] MEDS: Z GUARD REMEDY 2 OZ OINT TP SCH ×2 (09:24→21:12)
[2017-11-26] MEDS: ENOXAPARIN SODIUM 40 MG/0.4 ML DISP.SYRIN SQ SCH (09:24)
--- NOTE | 2017-11-26 12:24 | NUR ---
RN NOTES DR HUFFMAN AT BEDSIDE, PT WAS SEEN AND EVALUATED, CURRENT UPDATES GIVEN. JU COREA AT BEDSIDE. PT ON MORPHINE AND VERSED DRIP, SEDATED BUT AROUSABLE TO VERBAL AND TACTILE STIMULI. PT NODS TO ANSWER SIMPLE QUESTIONS AND ABLE TO FOLLOW SOME COMMANDS.
[2017-11-26] MEDS: FIBERSOURCE HN 1,000 ML BOTTLE GT PRN (16:27)
[2017-11-26] MEDS: HALOPERIDOL 1 MG TABLET GT SCH (17:00)
--- NOTE | 2017-11-26 19:18 | NUR ---
RN NOTES PATIENT RESTING IN BED COMFORTABLY. KRISTI BAUTISTA DISTRESS NOTED. [facility] WELL. ON MORPHINE DRIP@26MG/HR, VERSED DRIP ON 20MLS/HR. PT AFEBRILE. KEPT CLEAN AND COMFORTABLE. ALL DUE MEDS GIVEN. PADDED SIDERAILS KEPT IN PLACE. ENDORSED TO TANISHA EVANS FOR CONTINUITY OF CARE
--- NOTE | 2017-11-26 19:30 | NUR ---
Received patient resting open eyes to name,follows simple commands.Afebrile. SR 90's.Normotensive. Maintained on same prescribed vent settings.No acute distress noted.Right NGT feeding in progress. NGT placement verified.Residual 80 ml.Aspiration precaution,Fall precaution and skin precaution observed.FC to gravity drainage with clear yellow urine.Turned and repositioned.Continue monitoring. Addendum: 11/26/17 at 2136 by AKIRA CARCAMO RN Morphine gtt and versed gtt for sedation infusing via right upper arm PICC LINE.Site intact.
--- NOTE | 2017-11-26 20:00 | NUR ---
Patient became very agitated suddenly disconnecting trach and thrashing in bed.Tachycardic 114-116.BP elevated.Bilateral soft wrist restraints applied.PRN Ativan administered.Closely monitored.
[2017-11-26] MEDS: HALOPERIDOL 1 MG TABLET GT PRN (22:45)
--- NOTE | 2017-11-26 23:00 | NUR ---
Patient awake and extremely agitated thrashing in bed and sitting up trying to reach NGT and Trach.PRN Haldol and Ativan given.Versed gtt titrated up to 30 mg/hr.1:1 Sitter at bedside with bilateral soft wrist restraints on.Tachycardic 130's-140's.Encouraged patient to relax.Continue monitoring.
[2017-11-27] VITALS (41 sets, daily range): BP systolic 82–165; BP diastolic 44–108
[2017-11-27] MEDS: LORAZEPAM INJ 2 MG/ML VIAL IV PRN ×7 (00:14→22:29)
[2017-11-27] MEDS: MIDAZOLAM HCL 100 MG in IV NS 0.9% 80 ML IV PRN ×7 (00:19→22:28)
--- NOTE | 2017-11-27 01:40 | NUR ---
Patient remains restless and agitated.With sudden onset of SVT 200's and BP elevated.Paged ACQUISITIONS LIBRARIAN,Cayetano with order OK to start Diprivan drip.
[2017-11-27] MEDS: METOCLOPRAMIDE HCL 10 MG/10 ML UDC PO SCH ×3 (02:00→17:44)
[2017-11-27] MEDS: PROPOFOL 100 ML IV PRN ×2 (02:13→06:39)
--- NOTE | 2017-11-27 02:15 | NUR ---
0150 Sitter left. Per Felt Hat Pouncing Operator Hand sitter will only stay for 1 HR.Patient remains confused agitated and restless.Will start Diprivan gtt and titrate accordingly.SVT converted to ST 130's-140's.Continue monitoring.
--- NOTE | 2017-11-27 07:06 | NUR ---
Patient resting appears comfortable.VS stable.SR.All sedations infusing well.All needs attended.Report given to AM shift RN for PILO.
[2017-11-27] MEDS: PANTOPRAZOLE 40 MG VIAL IV SCH (07:27)
[2017-11-27] MEDS: HALOPERIDOL 1 MG TABLET GT SCH ×3 (07:28→17:44)
--- NOTE | 2017-11-27 07:40 | NUR ---
RN NOTES RECEIVED PT IN BED, SEDATED WITH MORPHINE DRIP AND VERSED DRIP. SR ON GRAB DRIVER HR 83 BPM. ON VENT VIA SHILEY 8 TRACH, AC 24 TV 500 FIO2 35% PEEP 5, TOLERATING WELL, NO DISTRESS NOTED. NGT AT RIGHT NARE IN PLACE, RUNNING FIBERSOURCE AT 60ML/HR, GASTRIC RESIDUAL OF 5 ML NOTED. [place] CATH IN PLACE, DRAINING WELL TO GRAVITY. PICC AT RIGHT UPPER ARM, DRESSING DRY AND INTACT, RUNNING VERSED@30ML/HR AND MORPHINE @27MG/HR, DIPRIVAN @20MCG/KG/MIN. BILATERAL SOFT WRIST RESTRAINTS IN PLACE, RELEASED AND CHECKED FOR CIRCULATION. PERINEAL REDNESS AND EXCORIATION NOTED. TURNED AND REPOSITIONED, EXTREMITIES OFFLOADED, HOB ELEVATED. SIDE RAILS X4 WITH PADDING DUE TO OCCASIONAL AGITATION WITH KICKING. WILL MONITOR CLOSELY
[2017-11-27 08:11] LABS: BASOPHILS % (AUTO) 0.2 % (0.0-2.0); EOSINOPHILS # (AUTO) 0.4 /CMM (0.0-0.7); EOSINOPHILS % (AUTO) 3.3 % (0.0-6.0); HEMATOCRIT 26 % (39-51); HEMOGLOBIN 8.7 g/dL (13.5-17.5); LYMPHOCYTES # (AUTO) 1.9 /CMM (0.8-4.8); LYMPHOCYTES % (AUTO) 16.1 % (20.0-44.0); MEAN CORPUSCULAR HEMOGLOBIN 31 PG (26.0-33.0); MEAN CORPUSCULAR HGB CONC 34 g/dl (31.0-36.0); MEAN CORPUSCULAR VOLUME 91 fL (80-96); MONOCYTES # (AUTO) 0.7 /CMM (0.1-1.30); NEUTROPHILS # (AUTO) 8.9 /CMM (1.8-8.9); NEUTROPHILS % (AUTO) 74.4 % (43.0-81.0); PLATELET COUNT (AUTO) 265 /CMM (150-450); RDW COEFFICIENT OF VARIATION 13.4 (11.5-15.0); RED BLOOD CELL COUNT(AUTO) 2.82 MIL/uL (4.5-6.0); WHITE BLOOD COUNT (AUTO) 11.9 K/uL (4.3-11.0)
[2017-11-27 08:24] LABS: CALCIUM, SERUM 9.1 mg/dL (8.5-10.1); CREATININE 0.9 mg/dL (0.6-1.3); POTASSIUM 3.8 mmol/L (3.5-5.1)
[2017-11-27] MEDS: THIAMINE HCL 100 MG TABLET PO SCH (08:32)
[2017-11-27] MEDS: FOLIC ACID 1 MG TABLET PO SCH (08:32)
[2017-11-27] MEDS: METHADONE HCL 10 MG TABLET PO SCH (08:32)
[2017-11-27] MEDS: LACTOBACILLUS RHAMNOSUS GG 1 EACH CAP.SPRINK GT SCH ×2 (08:32→17:44)
[2017-11-27] MEDS: PROSOURCE / PROSTAT (PYXIS) 30 ML UDC GT SCH (08:33)
[2017-11-27] MEDS: Z GUARD REMEDY 2 OZ OINT TP SCH ×2 (08:33→21:06)
[2017-11-27] MEDS: ENOXAPARIN SODIUM 40 MG/0.4 ML DISP.SYRIN SQ SCH (08:34)
[2017-11-27] MEDS: diphenhydrAMINE HCL 50 MG/ML VIAL IV PRN ×2 (13:11→19:47)
--- NOTE | 2017-11-27 16:15 | NUR ---
RN NOTES DURING BED BATH, PT NOTED WITH RASHES ON LEFT SIDE OF THE BACK. PT NOTED SWEATING ALOT. ALL LINENS CHANGED. PHOTO TAKEN AND FILED ON THE CHART, MD NOTIFIED. WOUND CONSULT ORDERED.
[2017-11-27] MEDS: FIBERSOURCE HN 1,000 ML BOTTLE GT PRN (17:57)
--- NOTE | 2017-11-27 18:51 | NUR ---
RN NOTES PT RESTING IN BED COMFORTABLY, ON UPRIGHT SITTING POSITION. JU AT BEDSIDE. PT AWAKE ABLE TO FOLLOW SOME COMMANDS. NO ACUTE CHANGE IN CONDITION NOTED. ON VERSED DRIP AND MORPHINE DRIP. DIPRIVAN OFF. BED BATH GIVEN. FAMILY REFUSED [employer] MATTRESS. FC PATENT, DAVID PICCLINE DRESSING CHANGE DONE. KEPT PT COMFORTABLE, PT ABLE TO MOVE WITH MIN ASSIST IN BED. ALL DUE MEDS GIVEN. MONITORED CLOSELY
--- NOTE | 2017-11-27 20:10 | NUR ---
RN NOTES RECEIVED PT AWAKE, ALERT SITTING ON BED LEANING TO HIS NAHOMY DODD AT BEDSIDE. RESPONSIVE TO STIMULI FOLLOWING COMMAND FOR A AWHILE BUT EASILY FORGETS. WITH TRACH CONNECTED TO VENT, SETTING TOLERATED WELL. NGT ON RIGHT NARES WITH FEEDING OF FIBERSOURCE @ 60 CC/HR INTACT AND PATENT WITH 10 CC RESIDUAL NOTED. TELE MONITOR REVEALS ST HR 117. IV SITE ON RIGHT UPPER ARM PICC LINE RUNNING WITH VERSED @ 30 ML/HR AND MORPHINE 27 MG/HR AND LEFT HAND G 20 HL INTACT AND PATENT. PT STARTED TO GET AGITATED AFTER FIANCE LEFT, PT IS TRYING TO GET OUT ON BED. RESTLESS, AGITATED INSPITE OF INSTRUCTION GIVEN,UNABLE TO FOLLOW INSTRUCTION AT THIS TIME. ABLE TO NOD FOR YES OR NO. DENIES PAIN. PRN FOR AGITATION GIVEN ORDERED BILATERAL SOFT WRIST RESTRAINT KEPT IN PLACE CIRCULATION CHECKED. KEPT PT CLEAN AND DRY. WILL CONTINUE TO MONITOR.
[2017-11-27] MEDS: SENNOSIDES 8.6 MG TABLET PO SCH (21:12)
[2017-11-27] MEDS: HALOPERIDOL 1 MG TABLET GT PRN (21:46)
--- NOTE | 2017-11-27 23:28 | NUR ---
PT TOLERATING VENT SETTINGS. SX'D FOR LARGE AMT OF FROTHY TINGED SECRETIONS. VENT ALARMS SET AND AUDIBLE. AMBU BAG AT BEDSIDE. VENT PLUGGED INTO RED OUTLET. WILL CONTINUE TO MONITOR. Addendum: 11/27/17 at 2328 by NANO HOPE RT Amended: Links added.
--- NOTE | 2017-11-27 23:45 | NUR ---
RN NOTES PT REMAINED AGITATED, RESTLESS AND TRYING TO GET OOB. PT ANSWERED INSTRUCTION BUT BEHAVIOR STILL THE SAME. IV VERSED AND MORPHINE ONGOING ON RIGHT UPPER ARM PICC LINE. ST ON TELE MONITOR DUE TO RESTLESS. PRN FOR AGITATION GIVEN ORDERED. AIRWAY PATENT. BEDBATH RENDERED TX GIVEN ORDERED. KEPT PT CLEAN AND COMFORTABLE IN BED. ONE ON ONE MONITORING.
[2017-11-28] VITALS (39 sets, daily range): BP systolic 83–166; BP diastolic 43–105
[2017-11-28] MEDS: LORAZEPAM INJ 2 MG/ML VIAL IV PRN ×9 (00:02→22:32)
[2017-11-28] MEDS: diphenhydrAMINE HCL 50 MG/ML VIAL IV PRN ×5 (00:02→19:51)
--- NOTE | 2017-11-28 01:20 | NUR ---
RN NOTES PT ASLEEP AT THIS TIME. TRACH AND VENT TOELRATED WELL NO ACUTE RESP DISTRESS. CLEAN AND COMFORTABLE IN BED. REPOSITIONED POSSIBLE FOR SKIN MANAGEMENT.
[2017-11-28] MEDS: METOCLOPRAMIDE HCL 10 MG/10 ML UDC PO SCH ×3 (01:49→18:06)
[2017-11-28] MEDS: MIDAZOLAM HCL 100 MG in IV NS 0.9% 80 ML IV PRN ×4 (02:15→12:04)
--- NOTE | 2017-11-28 02:35 | NUR ---
RN NOTES PT ASLEEP AT THIS TIME FOR ABOUT 30 MINUTES. MORPHINE TITRATE TO 25MG/HR WILL CLOSELY MONITOR
--- NOTE | 2017-11-28 04:50 | NUR ---
RN NOTES PT WOKE UP STARTED TO GET AGITATED, RESTLESS AND TRYING TO REACH TUBES. AND DANGLING LEGS ON THE SIDE. PRN MEDICINE FOR AGITATION GIVEN TITRATE MORPHINE BACK TO 27 MG/HR.
--- NOTE | 2017-11-28 07:30 | NUR ---
RN NOTES ENDORSED CONTINUITY OF CARE TO AM NURSE. PT ASLEEP FOR ABOUT 2-3 HOURS WOKE UP AND STILL RESTLESS AND AGITATED . CONTINUE WITH MORPHINE 27 MG/HR AND VERSED 30 ML/HR TITRATE NEEDED. NO BEHAVIORAL CHANGES SHOWS. KEPT PT CLEAN AND COMFORTABLE IN BED. CLOSELY MONITORED.
--- NOTE | 2017-11-28 07:45 | NUR ---
RN NOTES RECEIVED PT IN BED, ON MORPHINE DRIP AND VERSED DRIP. PT WAS JUST GIVEN ATIVAN HALF AN HOUR AGO, STILL RESTLESS AT THIS TIME. REDIRECTED PT. PT APPEARS SOMEWHAT DIRECTABLE, OVERESTIMATES LIMITATIONS AND REQUIRES CONSTANT REMINDERS. ST ON INTERNET SPECIALIST HR 110 BPM. ON VENT VIA SHILEY 8 TRACH, AC 24 TV 500 FIO2 35% PEEP 5, TOLERATING WELL, NO DISTRESS NOTED. NGT AT RIGHT NARE IN PLACE, RUNNING FIBERSOURCE AT 60ML/HR, GASTRIC RESIDUAL OF 10 ML NOTED. DAVENPORT CATH IN PLACE, DRAINING WELL TO GRAVITY. PICC ON RIGHT UPPER ARM, DRESSING DRY AND INTACT, RUNNING VERSED@30ML/HR AND MORPHINE @27MG/HR, BILATERAL SOFT WRIST RESTRAINTS IN PLACE, RELEASED AND CHECKED FOR CIRCULATION. PERINEAL AND BACK EXCORIATION NOTED. TURNED AND REPOSITIONED, EXTREMITIES OFFLOADED, HOB ELEVATED. SIDE RAILS X4 WITH PADDING DUE TO OCCASIONAL AGITATION WITH KICKING. WILL MONITOR CLOSELY
--- NOTE | 2017-11-28 07:52 | NUR ---
RN NOTES RECEIVED PT IN BED, ON MORPHINE DRIP AND VERSED DRIP. PT WAS JUST GIVEN ATIVAN HALF AN HOUR AGO, STILL RESTLESS AT THIS TIME. REDIRECTED PT. PT APPEARS SOMEWHAT DIRECTABLE, OVERESTIMATES LIMITATIONS AND REQUIRES CONSTANT REMINDERS. ST ON KEYBOARD SPECIALIST HR 110 BPM. ON VENT VIA SHILEY 8 TRACH, AC 24 TV 500 FIO2 35% PEEP 5, TOLERATING WELL, NO DISTRESS NOTED. NGT AT RIGHT NARE IN PLACE, RUNNING FIBERSOURCE AT 60ML/HR, GASTRIC RESIDUAL OF 10 ML NOTED. DAVENPORT CATH IN PLACE, DRAINING WELL TO GRAVITY. PICC ON RIGHT UPPER ARM, DRESSING DRY AND INTACT, RUNNING VERSED@30ML/HR AND MORPHINE @27MG/HR, BILATERAL SOFT WRIST RESTRAINTS IN PLACE, RELEASED AND CHECKED FOR CIRCULATION. PERINEAL AND BACK EXCORIATION NOTED. TURNED AND REPOSITIONED, EXTREMITIES OFFLOADED, HOB ELEVATED. SIDE RAILS X4 WITH PADDING DUE TO OCCASIONAL AGITATION WITH KICKING. WILL MONITOR CLOSELY Addendum: 11/28/17 at 0857 by JOSEPH CHAVEZ RN WRONG USER
[2017-11-28 08:07] LABS: BASOPHILS % (AUTO) 0.3 % (0.0-2.0); EOSINOPHILS # (AUTO) 0.5 /CMM (0.0-0.7); EOSINOPHILS % (AUTO) 4.5 % (0.0-6.0); HEMATOCRIT 26 % (39-51); HEMOGLOBIN 8.9 g/dL (13.5-17.5); LYMPHOCYTES # (AUTO) 1.7 /CMM (0.8-4.8); LYMPHOCYTES % (AUTO) 15.6 % (20.0-44.0); MEAN CORPUSCULAR HEMOGLOBIN 31 PG (26.0-33.0); MEAN CORPUSCULAR HGB CONC 35 g/dl (31.0-36.0); MEAN CORPUSCULAR VOLUME 89 fL (80-96); MONOCYTES # (AUTO) 0.7 /CMM (0.1-1.30); MONOCYTES % (AUTO) 6.4 % (2.0-12.0); NEUTROPHILS # (AUTO) 7.8 /CMM (1.8-8.9); NEUTROPHILS % (AUTO) 73.2 % (43.0-81.0); PLATELET COUNT (AUTO) 275 /CMM (150-450); RDW COEFFICIENT OF VARIATION 13.7 (11.5-15.0); RED BLOOD CELL COUNT(AUTO) 2.87 MIL/uL (4.5-6.0); WHITE BLOOD COUNT (AUTO) 10.6 K/uL (4.3-11.0)
[2017-11-28] MEDS: HALOPERIDOL 1 MG TABLET GT SCH ×3 (08:14→18:07)
[2017-11-28] MEDS: LACTOBACILLUS RHAMNOSUS GG 1 EACH CAP.SPRINK GT SCH ×2 (08:14→18:07)
[2017-11-28] MEDS: ENOXAPARIN SODIUM 40 MG/0.4 ML DISP.SYRIN SQ SCH (08:14)
[2017-11-28] MEDS: METHADONE HCL 10 MG TABLET PO SCH (08:15)
[2017-11-28] MEDS: PANTOPRAZOLE 40 MG VIAL IV SCH (08:15)
[2017-11-28] MEDS: THIAMINE HCL 100 MG TABLET PO SCH (08:15)
[2017-11-28] MEDS: FOLIC ACID 1 MG TABLET PO SCH (08:15)
[2017-11-28 08:16] LABS: CREATININE 0.8 mg/dL (0.6-1.3); POTASSIUM 3.9 mmol/L (3.5-5.1)
[2017-11-28] MEDS: Z GUARD REMEDY 2 OZ OINT TP SCH ×2 (08:16→20:54)
[2017-11-28] MEDS: PROSOURCE / PROSTAT (PYXIS) 30 ML UDC GT SCH (08:27)
[2017-11-28 09:06] LABS: ABG OXYGEN SATURATION 97.8 % (92.0-98.5); ABG PCO2 42.3 mmHg (35.0-45.0); ABG PH 7.445 (7.350-7.450); ABG PO2 127.1 mmHg (75.0-100.0); AaDO2 73.3 mmHg; COHb 0.3 % (0.5-1.5); MetHb 0.6 % (0.0-1.5); O2Hb 96.9 % (94.0-97.0); PEEP,BG 5 cm H2O; SITE, ABG Right Radial; VENT MODE, BG AC 24 500 35% +5; VT, ABG 500 mL
[2017-11-28] MEDS: HALOPERIDOL 1 MG TABLET GT PRN ×2 (10:34→19:51)
--- NOTE | 2017-11-28 17:19 | NUR ---
RN NOTES PT AWAKE, MORE ALERT AND RESPONDING TO COMMANDS. BED BATH GIVEN. PT NOTED BM X2. PT APPEARS RESTLESS AND SHOWING GESTURES TO GET OOB. REDIRECTED PT. PT PLACED ON A CHAIR, ASSISTED WITH 2 RN'S AND JU COREA AT BEDSIDE. VERSED DRIP AND MORPHINE DRIP OFF. PT CONNECTED TO VENT, TOLERATING WELL. SUCTIONED FOR AIRWAY CLEARANCE NOTED WITH MODERATE AMOUNT OF SECRETIONS. ORAL SUCTION DONE, NOTED LARGE AMOUNT OF SECRETIONS.
--- NOTE | 2017-11-28 18:51 | NUR ---
RN NOTES PT IN BED, AWAKE, EYES OPEN, ABLE TO NOD HEAD TO ANSWER SIMPLE QUESTIONS. SARA DODD AT BEDSIDE. TOLERATING CURRENT [facility] VENT SETTINGS WELL AC 24 TV 500 FIO2 35% PEEP 5. SUCTIONED PT NOTED LARGE AMOUNT OF SECRETIONS ORALLY AND VIA TRACHE. ATIVAN PRN GIVEN FOR AGITATION. MORPHINE AND VERSED DRIP OFF. DAVID PICC LINE IN PLACE CDI. ST ON MONITOR. KEPT PT CLEAN DRY AND COMFORTABLE. GOOD SKIN CARE PROVIDED. VS STABLE AT THIS TIME. CLOSELY MONITORED
[2017-11-28] MEDS ORDERED: ACETYLCYSTEINE 10% SOLN 400 MG/4 ML VIAL NEB SCH (19:30)
[2017-11-28] MEDS: ACETYLCYSTEINE 10% SOLN 400 MG/4 ML VIAL NEB SCH (19:30)
--- NOTE | 2017-11-28 19:55 | NUR ---
HORSE EXERCISER DF PT MEDICATED WITH HALDOL 1MG AND BENADRYL IV 50 MG. PT DANGEROUSLY AGITATED, PT WHILE UNRESTRAINED GOT OUT OF BED AND PUSHED ME AWAY AND ATTEMPTED TO HIT ME. SEVERAL STAFF MEMBERS AT BEDSIDE TO ASSIST PT BACK TO BED AND PT BILATERAL WRIST RESTRAINTS APPLIED. VSS. PT 1:1 ASSIGNMENT. PT NEEDS SITTER WHICH IS UNAVAILABLE AT THIS TIME.RN TO DO 1:1 NURSING ASSIGNMENT.
[2017-11-28] MEDS: MORPHINE SULFATE INJ 4 MG/ML DISP.SYRIN IV PRN (20:54)
[2017-11-28] MEDS: PROPOFOL 100 ML IV PRN (21:29)
[2017-11-28] MEDS: SENNOSIDES 8.6 MG TABLET PO SCH (22:00)
--- NOTE | 2017-11-28 22:15 | NUR ---
ASSOCIATE DIRECTOR FINANCE DF OKSANA MCKEON AT BEDSIDE.PM CARE PROVIDED. PT REMAINS VERY AGITATED AND COMBATIVE, PT ATTEMPTING TO GET OUT OF BED FOR THE LAST 3 HOURS.STAFF MEMBERS HAVE TO PHYSICALLY HOLD THE PT DOWN TO CONTROL HIM. PT DOES NOT FOLLOW COMMANDS. PT WAS ON MORPHINE GTT CONTINUOUS RATE OF 30MG FOR LAST 2-3 WEEKS. DAY SHIFT RN STOPPED GTT AND AT AROUND 2030 PT DEVELOPED WITHDRAW SYMPTOMS TACHYCARDIA OF 140-160BPM ELEVATED SBP 160,S TO 170,S.DIAPHORETIC,DANGEROUSLY AGITATED WITH RESPIRATORY RATE OF 40RPM.MORPHINE GTT RESTARTED@15MG TITRATED UP TO 20MG.PER MAINTENANCE TRAINER DORIAN POC SLOWLY TITRATE OFF MORPHINE GTT DO NOT STOP ABRUPTLY.YUKI SAINI GAVE ORDER TO RESTART PROPOFOL PRN SEVERE AGITATION.PRN MORPHINE 4MG AND PRN ATIVAN ADMIN FOR SEVERE AGITATION,.
[2017-11-29] VITALS (41 sets, daily range): BP systolic 81–167; BP diastolic 41–104
[2017-11-29] MEDS: PROPOFOL 100 ML IV PRN ×5 (00:05→09:45)
[2017-11-29] MEDS: METOCLOPRAMIDE HCL 10 MG/10 ML UDC PO SCH ×3 (01:01→17:06)
[2017-11-29] MEDS: diphenhydrAMINE HCL 50 MG/ML VIAL IV PRN ×5 (02:12→22:19)
[2017-11-29] MEDS: LORAZEPAM INJ 2 MG/ML VIAL IV PRN ×7 (05:18→22:02)
--- NOTE | 2017-11-29 07:15 | NUR ---
FLOOR CASHIER NOTES RECEIVED PATIENT SEDATED , NOT IN ACUTE DISTRESS , RESPIRATIONS EVEN AND UNLABORED , SPO2 OF 100% VIA MECHANICAL VENTILATOR SETTINGS ORDERED , TRACH OF ANTOINETTE # [address] , SR 85 ON BEDSIDE MONITOR , R NARE NGT IN PLACE CLAMPED , FC DRAINING VIA GRAVITY , BILATERAL SOFT WRIST RESTRAINTS IN PLACE ,VISUAL CHECK PER PROTOCOL , DAVID PICC LINE WITH DIPRIVAN @ 85MCG/KG/MIN , MORPHINE @ 15MG/HR INFUSING WELL , ALL NEEDS ATTENDED , BED ON LOW AND LOCKED POSITION , SIDE RAILS X2 ,CALL LIGHT WITHIN REACH , HOB @ 35, WILL CONTINUE TO MONITOR
--- NOTE | 2017-11-29 07:28 | NUR ---
MECHANICAL SYSTEMS DESIGNER DF PT TUBE FEEDING ON HOLD FROM 0300 TO 0700. PT VERY AGITATED,RESTLESS, PT NGT COMING OUT DURING EPISODES OF AGITATION, ASPIRATION RISK. POC IS TO ENTER GT WITH GI TEAM TO ANNOUNCE PLACEMENT DATE.NGT NOW SECURE PT SEDATED,CALM,COOPERATIVE.
[2017-11-29] MEDS: ACETYLCYSTEINE 10% SOLN 400 MG/4 ML VIAL NEB SCH ×2 (07:30→19:30)
--- NOTE | 2017-11-29 07:30 | NUR ---
LABOR/EXCAVATOR DF PHARMACY NOTED. MEDICATIONS IN TUBE INSPECTOR MORPHINE/VERSED WASTED R/T MEDS AND WHERE NOT RUNNING AT START OF SHIFT. NEW BAG OF MORPHINE GTT INITIATED AT 3=@2119. WASTED OF MORPHINE 160MG VERSED 80MG WITNESSED WASTE WITH CRISTINA Dumont. SEE FLOWSHEETS.
[2017-11-29] MEDS: THIAMINE HCL 100 MG TABLET PO SCH (08:05)
[2017-11-29] MEDS: PROSOURCE / PROSTAT (PYXIS) 30 ML UDC GT SCH (08:05)
[2017-11-29] MEDS: METHADONE HCL 10 MG TABLET PO SCH (08:05)
[2017-11-29] MEDS: LACTOBACILLUS RHAMNOSUS GG 1 EACH CAP.SPRINK GT SCH ×2 (08:06→17:06)
[2017-11-29] MEDS: HALOPERIDOL 1 MG TABLET GT SCH ×5 (08:06→20:07)
[2017-11-29] MEDS: Z GUARD REMEDY 2 OZ OINT TP SCH ×2 (08:06→20:15)
[2017-11-29] MEDS: FOLIC ACID 1 MG TABLET PO SCH (08:06)
[2017-11-29] MEDS: PANTOPRAZOLE 40 MG VIAL IV SCH (08:06)
[2017-11-29] MEDS: ENOXAPARIN SODIUM 40 MG/0.4 ML DISP.SYRIN SQ SCH (08:07)
--- NOTE | 2017-11-29 08:12 | NUR ---
WOUND CARE CONSULT: PT NOT SEEN FOR SKIN ASSESSMENT AT THIS TIME DUE TO PT UNSTABLE FOR TURNING/AGITATED PER NURSING STAFF. SKIN PROTECTION RECOMMENDATIONS DISCUSSED WITH NURSING STAFF. WILL SEE PT PT CONDITION PERMITS. MD IN AGREEMENT WITH PLAN OF CARE.
--- NOTE | 2017-11-29 08:25 | NUR ---
WOUND CARE CONSULT: PT CALMER NOW AND SEEN FOR SKIN ASSESSMENT. PT NOTED TO HAVE DARK RED RASH TO BUTTOCKS AND PERINEUM. SLIGHT REDNESS TO BACK (BLANCHABLE). PT KICKS LEGS FREQUENTLY. FIRST STEP MATTRESS HAD BEEN DISCONTINUED PER NURSING STAFF DUE TO FALL RISK WITH PT'S FREQUENT AGITATION. RECOMMEND LOW AIRLOSS BED (KRYSTAL ISOFLEX) TO BE PLACED. DISCUSSED ALL SKIN PROTECTION AND RASH RECOMMENDATIONS WITH NURSING STAFF. WILL SEE PRN. IN AGREEMENT WITH PLAN OF CARE.
[2017-11-29 09:22] LABS: ABG BASE EXCESS 2.7 mmol/L; ABG OXYGEN SATURATION 97.2 % (92.0-98.5); ABG PCO2 39.7 mmHg (35.0-45.0); ABG PH 7.448 (7.350-7.450); ABG PO2 108.2 mmHg (75.0-100.0); AaDO2 59.1 mmHg; COHb 0.3 % (0.5-1.5); MetHb 0.5 % (0.0-1.5); O2Hb 96.4 % (94.0-97.0); PEEP,BG 5 cm H2O; SITE, ABG Right Radial; VT, ABG 500 mL
--- NOTE | 2017-11-29 10:00 | NUR ---
SPEECH TEACHER NOTES SEEN AND EVALUATED BY DR ARAUJO , DISCUSSED PATIENT HISTORY , VENT SETTING , ABG RESULT AND CHEST XRAY , STABLE AT THIS TIME , AFEBRILE , V/S STABLE , ON DIPRIVAN @ 60MCG/KG/MIN , MORPHINE @ 15MG/HR , GT FEEDING HELD FOR POSSIBLE PEG PLACEMENT ,
[2017-11-29] MEDS: CLOTRIMAZOLE 1% 15 GM TUBE TP SCH ×2 (10:42→17:07)
--- NOTE | 2017-11-29 13:40 | NUR ---
PORTABLE IRRIGATION OPERATOR NOTES PATIENT IS AWAKE , ON DIPRIVAN @ 20MCG/KG/MIN , MORPHINE DRIP @ 8MG/HR , ABLE TO FOLLOW COMMANDS , HR OF 130'S TOLERATING CURRENT VENT SETTING , RR OF 31CPM , ATIVAN PRN GIVEN , WILL CONTINUE TO MONITOR
[2017-11-29] MEDS ORDERED: BENZTROPINE MESYLATE (2MG/2ML) 2 MG/2 ML AMPUL IM STA (15:26)
[2017-11-29] MEDS ORDERED: HALOPERIDOL LACTATE INJ 5 MG/ML VIAL IM STA (15:26)
[2017-11-29] MEDS ORDERED: HALOPERIDOL 1 MG TABLET GT PRN (15:30)
[2017-11-29] MEDS ORDERED: BENZTROPINE MESYLATE (2MG/2ML) 2 MG/2 ML AMPUL IM PRN (15:30)
[2017-11-29] MEDS ORDERED: HALOPERIDOL LACTATE INJ 5 MG/ML VIAL IM PRN (15:30)
[2017-11-29] MEDS: BENZTROPINE MESYLATE (1 MG) 1 MG TABLET PO SCH (17:00)
--- NOTE | 2017-11-29 17:08 | NUR ---
HOTEL REGISTRATION CLERK NOTES COGENTIN AND HALDOL PO HELD PT RECEIVED A DOSE OF COGENTIN AND HALDOL IM ORDERED , VERIFIED WITH DR HUFFMAN PER MD HOLD 1700 DOSE OF HALDOL AND COGENTIN PO ,
[2017-11-29 19:45] LABS: INR 1.1 (0.87-1.13)
[2017-11-29] MEDS: MORPHINE SULFATE INJ 4 MG/ML DISP.SYRIN IV PRN (20:07)
[2017-11-29] MEDS: SENNOSIDES 8.6 MG TABLET PO SCH (20:14)
[2017-11-29] MEDS: ACETAMINOPHEN 650 MG/20.3 ML UDC NG PRN (20:47)
--- NOTE | 2017-11-29 20:54 | NUR ---
GENETIC COORDINATOR: PT IS VERY AGITATING, HEART RATE 150, ATIVAN 2 MG IV GIVEN ALONG WITH MORPHINE 4 MG IV. STILL ON MORPHINE DRIP ONGOING AT 15 MG/HR. SITTER AT BEDSIDE. CALLED SCRAP STRIPPER HAND ROSITA LEBLANC, MADE AWARE, PT WAS ON DIPRIVAN DURING THE DAY THEN TURNED IT OFF LATER IN THE DAY PER DAY NURSE. AWAITING ROSITA TO CALL BACK AGAIN.
--- NOTE | 2017-11-29 22:06 | NUR ---
PT RECEIVED TRACHED SHLY 8 ON 840 VENT. PT RESTLESS KEEPS GETTING UP. SITTER AT BEDSIDE. TOLERATING VENT SETTINGS. SX'D FOR SML AMT OF THICK PALE SECRETIONS. VENT ALARMS SET AND AUDIBLE. AMBU BAG AT BEDSIDE. VENT PLUGGED INTO RED OUTLET. WILL CONTINUE TO MONITOR. Addendum: 11/29/17 at 2207 by QUINTIN OLSON RT Amended: Links added.
[2017-11-29] MEDS ORDERED: MIDAZOLAM HCL 2 MG/2ML VIAL ONE (22:57)
[2017-11-29] MEDS: MIDAZOLAM HCL 2 MG/2ML VIAL IV PRN (23:01)
[2017-11-30] VITALS (35 sets, daily range): BP systolic 104–170; BP diastolic 61–112
[2017-11-30] MEDS: MIDAZOLAM HCL 2 MG/2ML VIAL IV PRN ×2 (01:10→03:19)
[2017-11-30] MEDS: METOCLOPRAMIDE HCL 10 MG/10 ML UDC PO SCH ×3 (01:25→17:08)
[2017-11-30] MEDS: LORAZEPAM INJ 2 MG/ML VIAL IV PRN ×6 (01:50→22:19)
[2017-11-30] MEDS: diphenhydrAMINE HCL 50 MG/ML VIAL IV PRN (03:19)
[2017-11-30 05:08] LABS: BASOPHILS # (AUTO) 0.1 /CMM (0.0-0.2); BASOPHILS % (AUTO) 0.4 % (0.0-2.0); EOSINOPHILS # (AUTO) 0.3 /CMM (0.0-0.7); HEMATOCRIT 27 % (39-51); HEMOGLOBIN 9.2 g/dL (13.5-17.5); LYMPHOCYTES # (AUTO) 1.8 /CMM (0.8-4.8); MEAN CORPUSCULAR HEMOGLOBIN 31 PG (26.0-33.0); MEAN CORPUSCULAR HGB CONC 34 g/dl (31.0-36.0); MEAN CORPUSCULAR VOLUME 91 fL (80-96); MONOCYTES # (AUTO) 0.7 /CMM (0.1-1.30); MONOCYTES % (AUTO) 5.2 % (2.0-12.0); NEUTROPHILS # (AUTO) 10.3 /CMM (1.8-8.9); NEUTROPHILS % (AUTO) 78.4 % (43.0-81.0); PLATELET COUNT (AUTO) 337 /CMM (150-450); RDW COEFFICIENT OF VARIATION 13.5 (11.5-15.0); RED BLOOD CELL COUNT(AUTO) 2.99 MIL/uL (4.5-6.0); WHITE BLOOD COUNT (AUTO) 13.2 K/uL (4.3-11.0)
[2017-11-30 05:24] LABS: CALCIUM, SERUM 9.4 mg/dL (8.5-10.1); POTASSIUM 3.8 mmol/L (3.5-5.1)
--- NOTE | 2017-11-30 06:40 | NUR ---
CUSTOMER SERVICE SALES CONSULTANT: PATIENT BEING VERY AGITATED THE WHOLE NIGHT, EVEN ALL PRN WERE GIVEN"VERSED, MORPHINE, ATIVAN, HALODOL AND BENADRYL" PT STILL WAS VERY AGITATED. SITTER AT BEDSIDE. CALLED ROSITA SAINI [facility], ASKED IF CAN START DIPRIVAN, PRIMARY CARE,ROSITA SAINI REFUSED TO START DIPRIVAN FOR WEANING PURPOSES. PT IS TACHYCARDIAC HR 130-160 THE WHOLE NIGHT, MD AWARE. LAST ATIVAN WAS GIVEN AT 0625. WILL ENDORSE CARE TO NEXT SHIFT.
[2017-11-30] MEDS: ACETYLCYSTEINE 10% SOLN 400 MG/4 ML VIAL NEB SCH ×2 (07:30→19:30)
[2017-11-30] MEDS: HALOPERIDOL 1 MG TABLET GT SCH ×4 (08:00→21:03)
[2017-11-30] MEDS: PANTOPRAZOLE 40 MG VIAL IV SCH (08:19)
[2017-11-30] MEDS: FOLIC ACID 1 MG TABLET PO SCH (08:20)
[2017-11-30] MEDS: THIAMINE HCL 100 MG TABLET PO SCH (08:20)
[2017-11-30] MEDS: LACTOBACILLUS RHAMNOSUS GG 1 EACH CAP.SPRINK GT SCH ×2 (08:20→17:05)
[2017-11-30] MEDS: PROSOURCE / PROSTAT (PYXIS) 30 ML UDC GT SCH (08:20)
[2017-11-30] MEDS: CLOTRIMAZOLE 1% 15 GM TUBE TP SCH ×2 (08:21→17:05)
[2017-11-30] MEDS: Z GUARD REMEDY 2 OZ OINT TP SCH ×2 (08:21→21:04)
[2017-11-30 08:37] LABS: ABG BASE EXCESS -0.9 mmol/L; ABG OXYGEN SATURATION 97.5 % (92.0-98.5); ABG PCO2 37.8 mmHg (35.0-45.0); ABG PH 7.412 (7.350-7.450); ABG PO2 118.7 mmHg (75.0-100.0); AaDO2 50.8 mmHg; COHb 0.3 % (0.5-1.5); MetHb 0.5 % (0.0-1.5); O2Hb 96.7 % (94.0-97.0); PEEP,BG 5 cm H2O; SITE, ABG Right Radial; VT, ABG 500 mL
[2017-11-30] MEDS: BENZTROPINE MESYLATE (1 MG) 1 MG TABLET PO SCH ×2 (08:47→17:05)
[2017-11-30] MEDS: ENOXAPARIN SODIUM 40 MG/0.4 ML DISP.SYRIN SQ SCH (08:47)
[2017-11-30] MEDS: METHADONE HCL 10 MG TABLET PO SCH (09:00)
--- NOTE | 2017-11-30 11:27 | NUR ---
IT INFRASTRUCTURE CONSULTANT NOTE 0720: received patient awake, able to answer yes/no questions. Able to follow commands, but with episode of trying to get out of bed and pulling out NGT and trache tubings. With LIFTER/DRIVER restraints on for safety. With 1:1 sitter. Wityh trache to vent, tolerated settings well. with right NGT intact, clamped. Remained NPO for PEG placement today. With DAVID PICC intact, on MS 15mg/hr, no c/o pain at this time. With Barrett cath intact, noted with clear maia colored urine drained to BSD. ST 130's on the monitor. 0800: Noted temp 100.8, rendered cooling measures. Held /GT meds, held Haldol, patient able to be reoriented, but needs frequent reorientation due to frequent episodes of trying to get out of bed. Katy Balderas for procedure today. 1030: S/E by Dr. Atkins, with order to place on SIMV mode and titrate MS lower or off if able Placed MS to 10mg/hr, will monitor. RT placed on SIMV 12 PS 10. Rechecked temp 98.5.
--- NOTE | 2017-11-30 12:25 | NUR ---
DANCE COACH NOTE 1220: Done with EGD with PEG by Dr. Davila. Patient tolerated well. VSS. Placed abdominal binder per MD. 1225: Patient sleeping easily awaken, VSS.
--- NOTE | 2017-11-30 17:09 | NUR ---
RT END OF THE SHIFT REPORT, PT 37 Y OLD MALE REMAIN TRACHED SHILEY # 8 ON VENT. PT RESTLESS KEEPS GETTING UP. SITTER AT BEDSIDE. TOLERATING VENT SETTINGS.CHANGES TO SIMV MODE PER DR. ARAUJO ORDER @ 1015. SUX'D FOR SMALL AMT OF THICK PALE SECRETIONS. B/S BILATERALLY CLEAR/FINE AND EQUAL CHEST RISE NOTED VENT ALARMS SET AND AUDIBLE. AMBU BAG AT BEDSIDE. VENT PLUGGED INTO RED OUTLET. HME CHANGED NO DISTRESS NOTED T/O SHIFT AND WILL CONTINUE TO MONITOR. REPORT WILL PASS TO PM SHIFT. Addendum: 11/30/17 at 1712 by ISAK CAIN RT Amended: Links added.
--- NOTE | 2017-11-30 19:30 | NUR ---
ACCOUNT EXECUTIVE HEALTHCARE OPENING NOTES RECEIVED REPORT FROM AM RN. PATIENT A/A/O X1-2 W/ SOME CONFUSION. NON-VERBAL @ THIS TIME. NO RESPIRATORY DISTRESS NOTED. TRACH INTACT W/ VENT SETTINGS SIMV 12, TV 500, FIO2 30%, PEEP 5. ON TELE W/ SINUS TACH & HR IN 120S. RIGHT UPPER ARM PICC LINE INTACT & PATENT W/ DRESSING CDI. G-TUBE INTACT & FLUSHING WELL, CLAMPED @ THIS TIME. DAVENPORT CATH DRAINING YUNG COLORED URINE. SAFETY & SEIZURE PRECAUTIONS IN PLACE. SITTER @ BEDSIDE. WILL CONTINUE TO MONITOR CLOSELY.
[2017-11-30] MEDS: SENNOSIDES 8.6 MG TABLET PO SCH (21:03)
[2017-12-01] VITALS (32 sets, daily range): BP systolic 84–147; BP diastolic 39–92
[2017-12-01] MEDS: METOCLOPRAMIDE HCL 10 MG/10 ML UDC PO SCH ×3 (01:46→17:39)
[2017-12-01] MEDS: LORAZEPAM INJ 2 MG/ML VIAL IV PRN ×3 (01:46→04:42)
--- NOTE | 2017-12-01 04:30 | NUR ---
SMASH FIXER NOTES SPOKE TO DR ONTIVEROS REGARDING PATIENT'S NAUSEA & EMESIS X2 EVEN AFTER ROUTINE REGLAN GIVEN. RECEIVED NEW ORDER FOR ZOFRAN IV PRN. NEW ORDER CARRIED OUT.
[2017-12-01] MEDS ORDERED: ONDANSETRON HCL/PF 4 MG/2 ML VIAL IV PRN (05:00)
[2017-12-01] MEDS: FIBERSOURCE HN 1,000 ML BOTTLE GT PRN (06:31)
--- NOTE | 2017-12-01 06:46 | NUR ---
OPERATIONAL RISK MANAGER NOTES EMESIS & NAUSEA STOPPED AFTER IV ZOFRAN GIVEN. GTF FIBERSOURCE STARTED @ 60 ML/HR W/ NEW PEG SITE. TOLERATING @ THIS TIME.
[2017-12-01] MEDS: ACETYLCYSTEINE 10% SOLN 400 MG/4 ML VIAL NEB SCH ×2 (07:46→20:31)
--- NOTE | 2017-12-01 08:00 | NUR ---
ICU/RN INITIAL NOTES,AM RECEIVED REPORT FROM NIGHT NURSE. PT AWAKE IN BED WITH SITTER AT BEDSIDE. PT FOLLOWS COMMANDS, AND IS COOPERATIVE AT THIS TIME. HOWEVER, HAS PERIODS WHEN HE TRIES TO GET OUT OF BED AND VERY RESTLESS. PT ON TELE, SINUS TACH. PT TRACH TO VENT, POSSIBLE WEANING TODAY IF PT TOLERATES. ABG ORDERED. NO RESP DISTRESS NOTED, VSS. DAVENPORT IN PLACE, DRAINING YUNG URINE. GTUBE PLACED YESTERDAY, TUBE FEEDING INFUSING, TOLERATING WELL, NO RESIDUAL NOTED AT THIS TIME. WILL CONTINUE TO MONITOR. SAFETY MEASURES TAKEN, BED IN LOW POSITION, SIDE RAILS UP, CALL LIGHT WITHIN REACH. SITTER AT BEDSIDE.
[2017-12-01] MEDS: PANTOPRAZOLE 40 MG VIAL IV SCH (08:13)
[2017-12-01] MEDS: LACTOBACILLUS RHAMNOSUS GG 1 EACH CAP.SPRINK GT SCH ×2 (08:13→17:38)
[2017-12-01] MEDS: BENZTROPINE MESYLATE (1 MG) 1 MG TABLET PO SCH ×2 (08:13→17:39)
[2017-12-01] MEDS: THIAMINE HCL 100 MG TABLET PO SCH (08:14)
[2017-12-01] MEDS: HALOPERIDOL 1 MG TABLET GT SCH ×4 (08:14→20:15)
[2017-12-01] MEDS: METHADONE HCL 10 MG TABLET PO SCH (08:15)
[2017-12-01] MEDS: PROSOURCE / PROSTAT (PYXIS) 30 ML UDC GT SCH (08:15)
[2017-12-01] MEDS: FOLIC ACID 1 MG TABLET PO SCH (08:15)
[2017-12-01] MEDS: CLOTRIMAZOLE 1% 15 GM TUBE TP SCH ×2 (08:16→17:39)
[2017-12-01] MEDS: ENOXAPARIN SODIUM 40 MG/0.4 ML DISP.SYRIN SQ SCH (08:16)
[2017-12-01] MEDS: Z GUARD REMEDY 2 OZ OINT TP SCH ×2 (08:17→20:16)
[2017-12-01 08:44] LABS: ABG BASE EXCESS 2.3 mmol/L; ABG OXYGEN SATURATION 97.9 % (92.0-98.5); ABG PCO2 33.9 mmHg (35.0-45.0); ABG PH 7.493 (7.350-7.450); ABG PO2 123.4 mmHg (75.0-100.0); AaDO2 50.7 mmHg; MetHb 0.4 % (0.0-1.5); O2Hb 97.5 % (94.0-97.0); PEEP,BG 5 cm H2O; SITE, ABG Right Radial; VENT MODE, BG SIMV 12 / PS 10; VT, ABG 500 mL
--- NOTE | 2017-12-01 11:09 | NUR ---
PT PLACED INTO COOL AEROSOL @ 28% FIO2 ORDER. SPO2 98% HR 91 Addendum: 12/01/17 at 1110 by KAE ROBERTS RT Amended: Links added.
--- NOTE | 2017-12-01 11:10 | NUR ---
ICU/RN: PER MD ORDERS, PT PLACED ON COOL AEROSOL WITH 28% FIO2, TOLERATING WELL, NO DISTRESS. WILL CONTINUE TO MONITOR. GIRLFRIEND AND SITTER AT BEDSIDE.
[2017-12-01] MEDS: CLONIDINE HCL 0.3 MG/24H PTWK 1 EA PATCH TD SCH (13:51)
[2017-12-01 17:55] LABS: BILIRUBIN,DIRECT 0.1 mg/dL (0.0-0.2); BILIRUBIN,TOTAL 0.5 mg/dL (0.2-1.0); TOTAL PROTEIN, SERUM 7.6 g/dL (6.4-8.2)
--- NOTE | 2017-12-01 19:39 | NUR ---
ICU/RN ENDING NOTES,AM REPORT ENDORSED TO NIGHT NURSE.PT ON T PIECE, COOL AEROSOL, TOLERATING WELL, NO DISTRESS. SITTER AT BEDSIDE. ALL NEEDS MET, SAFETY MEASURES TAKEN, BED IN LOW POSITION, SIDE RAILS UP, CALL LIGHT WITHIN REACH.
--- NOTE | 2017-12-01 20:00 | NUR ---
received pt from day shift, alert, follows commands, SR, on T tube at 28% sat well, lung partially congested, GT to feeding tolerates well, f/c OK output, v/s stable, no pain, pt turns and repositions by himself, family at the bedside.
[2017-12-01] MEDS: SENNOSIDES 8.6 MG TABLET PO SCH (21:21)
[2017-12-02] VITALS (20 sets, daily range): BP systolic 104–136; BP diastolic 57–90
--- NOTE | 2017-12-02 00:17 | NUR ---
pt is resting in the bed, alert, follows commands, SR, v/s stable, no pain, sitter at the bedside.
[2017-12-02] MEDS: diphenhydrAMINE HCL 50 MG/ML VIAL IV PRN (00:57)
[2017-12-02] MEDS: METOCLOPRAMIDE HCL 10 MG/10 ML UDC PO SCH ×3 (01:10→17:02)
[2017-12-02] MEDS ORDERED: FIBERSOURCE HN 1,000 ML BOTTLE GT PRN (04:00)
--- NOTE | 2017-12-02 04:20 | NUR ---
pt is resting in the bed, no acute distress overnight, SR, alert, follows commands, v/s stable, no pain, pt cleaned and changed.
[2017-12-02 04:59] LABS: BASOPHILS % (AUTO) 0.6 % (0.0-2.0); EOSINOPHILS # (AUTO) 0.1 /CMM (0.0-0.7); EOSINOPHILS % (AUTO) 0.7 % (0.0-6.0); HEMATOCRIT 27 % (39-51); HEMOGLOBIN 9.3 g/dL (13.5-17.5); LYMPHOCYTES # (AUTO) 1.9 /CMM (0.8-4.8); MEAN CORPUSCULAR HEMOGLOBIN 31 PG (26.0-33.0); MEAN CORPUSCULAR HGB CONC 34 g/dl (31.0-36.0); MEAN CORPUSCULAR VOLUME 90 fL (80-96); MONOCYTES # (AUTO) 0.6 /CMM (0.1-1.30); MONOCYTES % (AUTO) 6.4 % (2.0-12.0); NEUTROPHILS # (AUTO) 6.3 /CMM (1.8-8.9); NEUTROPHILS % (AUTO) 71.3 % (43.0-81.0); PLATELET COUNT (AUTO) 308 /CMM (150-450); RDW COEFFICIENT OF VARIATION 14.5 (11.5-15.0); RED BLOOD CELL COUNT(AUTO) 3.03 MIL/uL (4.5-6.0); WHITE BLOOD COUNT (AUTO) 8.9 K/uL (4.3-11.0)
[2017-12-02 05:16] LABS: CALCIUM, SERUM 9.2 mg/dL (8.5-10.1); CREATININE 0.8 mg/dL (0.6-1.3); POTASSIUM 3.5 mmol/L (3.5-5.1)
--- NOTE | 2017-12-02 07:10 | NUR ---
RN NOTES RECEIVED PT ON BED, A/Ox3, FOLLOWS COMMAND , TRACH DEPENDENT, ON 28% COOL AEROSOL, O2 SAT 100% , NO DISTRESS NOTED, ON TELE SR HR IN 80'S, TOLERATING TF FIBERSOURCE AT 60CC/HR WELL , NO RESIDUAL NOTED. R UPPER ARM PICC LINE SITE CDI, DAVENPORT DRAINING TO GRAVITY WITH YELLOW CLOUDY URIN , SR UP x3, CALL LIGHT WITHIN EASY REACH, BED LOCKED AND IN LOWEST POSITION , CONTINUE TO MONITOR PT CLOSELY AND NOTIFY MD FOR ANY SIGNIFICANT CHANGES
[2017-12-02] MEDS: ACETYLCYSTEINE 10% SOLN 400 MG/4 ML VIAL NEB SCH ×2 (07:30→19:30)
[2017-12-02] MEDS: PANTOPRAZOLE 40 MG VIAL IV SCH (07:59)
[2017-12-02] MEDS: ENOXAPARIN SODIUM 40 MG/0.4 ML DISP.SYRIN SQ SCH (08:01)
[2017-12-02] MEDS: FOLIC ACID 1 MG TABLET PO SCH (08:01)
[2017-12-02] MEDS: BENZTROPINE MESYLATE (1 MG) 1 MG TABLET PO SCH ×2 (08:01→16:11)
[2017-12-02] MEDS: METHADONE HCL 10 MG TABLET PO SCH (08:02)
[2017-12-02] MEDS: THIAMINE HCL 100 MG TABLET PO SCH (08:03)
[2017-12-02] MEDS: Z GUARD REMEDY 2 OZ OINT TP PRN ×4 (08:04→22:16)
[2017-12-02] MEDS: CLOTRIMAZOLE 1% 15 GM TUBE TP SCH ×2 (08:04→16:12)
[2017-12-02] MEDS: Z GUARD REMEDY 2 OZ OINT TP SCH ×2 (08:07→22:18)
[2017-12-02] MEDS: PROSOURCE / PROSTAT (PYXIS) 30 ML UDC GT SCH (08:07)
[2017-12-02] MEDS: LACTOBACILLUS RHAMNOSUS GG 1 EACH CAP.SPRINK GT SCH ×2 (08:07→16:11)
[2017-12-02] MEDS: HALOPERIDOL 1 MG TABLET GT SCH ×4 (08:29→20:30)
[2017-12-02] MEDS: LORAZEPAM INJ 2 MG/ML VIAL IV PRN ×2 (12:02→20:42)
--- NOTE | 2017-12-02 12:15 | NUR ---
RN NOTES PASSY SAJI VALVE ON , PT ON RA AND ABLE TO TALK, O2 SAT 100% AT THIS TIME , SOFT DIET ORDER PER SPEECH THERAPIST RECOMMENDATION AND MD ORDER , SUPPORTIVE FAMILY AT THE BEDSIDE , CONTINUE TO MONITOR.
--- NOTE | 2017-12-02 13:33 | NUR ---
RN NOTES PT SLEEPING AT THIS TIME, SUPPORTIVE FAMILY AT THE BEDSIDE, O2 SAT 100%, ON 5L COOL AEROSOL VIA TRACH, CONTINUE TO MONITOR .
[2017-12-02] MEDS ORDERED: HALOPERIDOL 1 MG TABLET GT PRN (14:30)
--- NOTE | 2017-12-02 14:57 | NUR ---
RN NOTES PT ATE ABOUT 30% OF HIS SOFT DIET FOOD , TOLERATED WELL, CONTINUE TO MONITOR.
--- NOTE | 2017-12-02 15:23 | NUR ---
RN NOTES PT OUT OF BED TO BSC, TOLERATED WELL, BM x1 NOTED . CONTINUE TO MONITOR .
[2017-12-02] MEDS: FLUCONAZOLE (100 MG) 100 MG TABLET PO SCH (17:02)
--- NOTE | 2017-12-02 17:54 | NUR ---
RN NOTES PT IS STABLE, REPORT GIVEN TO FANI EVANS IN [facility] DEPARTMENT .
--- NOTE | 2017-12-02 18:00 | NUR ---
[facility] RN NOTE RECEIVED PATIENT ROM ICU ALERT ORIENTED X3 ,BY RT PLACED ON COLLER AEROSOL 28% 7L O2 , NO SOB NOTED HAVING DINNER FED BY SITTER, BP124/74 HR 61 SAT 91% T 98.0 , HOSPITAL ORIENTATION DONE , WITH DAVENPORT CATH TO GRAVITY WITH YELLOW, COLOR URINE , WITH MID CHUCK ON RT UPPER ARM ,NO REDNESS INFECTION NOTED WITH G TUBE FEEDING ORDERED KEEP HOB ELEVATED, WILL CONT TO MONITOR CLOSELY
--- NOTE | 2017-12-02 18:10 | NUR ---
RN NOTES PT TRANSFERRED TO ROOM 118-2 IN STABLE CONDITION .
--- NOTE | 2017-12-02 19:57 | NUR ---
[facility] RN NOTE RECEIVED PATIENT ROM FANI, ALERT ORIENTED X3 ,BY RT PLACED ON COLLER AEROSOL 28% 7L O2 , NO SOB NOTED , HOSPITAL ORIENTATION DONE , WITH DAVENPORT CATH TO GRAVITY WITH YELLOW, COLOR URINE , WITH MID CHUCK ON RT UPPER ARM ,NO REDNESS INFECTION NOTED WITH G TUBE FEEDING ORDERED KEEP HOB ELEVATED, WILL CONT TO MONITOR CLOSELY
--- NOTE | 2017-12-02 20:24 | NUR ---
[address] RAMA EDEN TO DC FC, WILL MONITOR PT FOR S/S OF URINARY RETENTION. VS STABLE.
[2017-12-02] MEDS: MORPHINE SULFATE INJ 4 MG/ML DISP.SYRIN IV PRN (20:41)
[2017-12-02] MEDS: SENNOSIDES 8.6 MG TABLET PO SCH (22:00)
--- NOTE | 2017-12-02 22:12 | NUR ---
2200 SENNAKOT ORDER NOT GIVEN, PT C/O LOOSE STOOL.
[2017-12-03] VITALS: BP 124/66
[2017-12-03] MEDS: METOCLOPRAMIDE HCL 10 MG/10 ML UDC PO SCH ×3 (02:42→17:14)
[2017-12-03 04:00] VITALS: BP 128/67
--- NOTE | 2017-12-03 05:54 | NUR ---
[facility] RN CLOSING NOTE ENDORSED PATIENT ALERT ORIENTED X3 , ON COLLER AEROSOL 28% 4L O2 , NO SOB NOTED , F/C DC, NO S/S OF URINARY RETENTION, WITH YELLOW, COLOR URINE , WITH MID CHUCK ON RT UPPER ARM ,NO REDNESS INFECTION NOTED. WITH G TUBE FEEDING ORDERED, REFUSED TO START GTF, WITH , PT FEED DINNER, RIGOBERTO 100%, DOES NOT GTF ANY MORE, WILL ENDORSE TO AM SHIFT TO NOTIFY MD. KEEP HOB ELEVATED, WILL CONT TO MONITOR CLOSELY
[2017-12-03] MEDS: ACETYLCYSTEINE 10% SOLN 400 MG/4 ML VIAL NEB SCH ×3 (07:16→20:32)
[2017-12-03 08:00] VITALS: BP 119/70
[2017-12-03] MEDS: PANTOPRAZOLE 40 MG VIAL IV SCH (08:35)
[2017-12-03] MEDS: BENZTROPINE MESYLATE (1 MG) 1 MG TABLET PO SCH ×2 (08:35→17:07)
[2017-12-03] MEDS: FOLIC ACID 1 MG TABLET PO SCH (08:36)
[2017-12-03] MEDS: LACTOBACILLUS RHAMNOSUS GG 1 EACH CAP.SPRINK GT SCH ×2 (08:36→17:07)
[2017-12-03] MEDS: HALOPERIDOL 1 MG TABLET GT SCH ×4 (08:37→20:59)
[2017-12-03] MEDS: METHADONE HCL 10 MG TABLET PO SCH (08:37)
[2017-12-03] MEDS: Z GUARD REMEDY 2 OZ OINT TP SCH ×2 (08:38→21:21)
[2017-12-03] MEDS: THIAMINE HCL 100 MG TABLET PO SCH (08:39)
[2017-12-03] MEDS: PROSOURCE / PROSTAT (PYXIS) 30 ML UDC GT SCH (08:40)
[2017-12-03] MEDS: ENOXAPARIN SODIUM 40 MG/0.4 ML DISP.SYRIN SQ SCH (08:40)
[2017-12-03] MEDS: CLOTRIMAZOLE 1% 15 GM TUBE TP SCH ×2 (08:41→17:07)
--- NOTE | 2017-12-03 09:33 | NUR ---
RN INITIAL NOTE PATIENT IN BED WATHCING T.V, ALERT AND ORIENTED X3, HE IS ABLE TO MAKE THINGS KNOWN AND FOLLOW COMMAND , TRACH DEPENDENT, ON 28% COOL AEROSOL, O2 SAT 100% , NO DISTRESS NOTED, ON TELE SR HR IN 80'S, TOLERATING TF FIBERSOURCE AT 60CC/HR WELL , NO RESIDUAL NOTED. R UPPER ARM PICC LINE SITE CDI, DAVENPORT DRAINING TO GRAVITY WITH YELLOW CLOUDY URIN , SR UP x3, CALL LIGHT WITHIN EASY REACH, BED LOCKED AND IN LOWEST POSITION , CONTINUE TO MONITOR PT CLOSELY AND NOTIFY MD FOR ANY SIGNIFICANT CHANGES Addendum: 12/03/17 at 0944 by ELIZA VILLEDA RN ERROR IN CHARTING TIME: RN INITIAL NOTE PATIENT IN BED WATCHING T.V, ALERT AND ORIENTED X3, HE IS ABLE TO MAKE THINGS KNOWN AND FOLLOWS COMMAND , TRACH DEPENDENT WITH SUCTION PROVIDED FOR AIRWAY CLEARANCE, NO SOB OR DISTRESS NOTED, ON TELE SR HR IN 61. GT SITE INTACT AND PATENT WITH NO RESIDUAL NOTED. R UPPER ARM PICC LINE SITE CDI. ALL SAFETY MEASURES PROVIDED, PLACED CALL LIGHT WITHIN REACH, CONTINUE TO MONITOR AND NOTIFY MD FOR ANY SIGNIFICANT CHANGES
[2017-12-03 12:00] VITALS: BP 100/67
--- NOTE | 2017-12-03 12:38 | NUR ---
TD/RN ROUNDS - DR. PANG UPDATED PT'S CONDITION. PT SEEN & EXAMINED BY DR. PANG. PER MD PLAN TO CAP TRACH TOMORROW AND TO FOLLOW-UP PT EVAL. NOTED. MONITORING CONTINUED.
[2017-12-03 16:00] VITALS: BP 94/63
[2017-12-03] MEDS: FLUCONAZOLE (100 MG) 100 MG TABLET PO SCH (17:07)
--- NOTE | 2017-12-03 19:41 | NUR ---
RN CLOSING NOTE PATIENT IS AWAKE SITTING THE CHAIR WATCHING T.V. ALERT ORIENTED X3 , ON COLLER AEROSOL 28% CURRENTLY ON 3LPM O2 SATURATION 100% , NO SOB OR DISTRESS NOTED, PATIENT WAS ABLE TO AMBULATE TO BEDSIDE COMMODE. GT INTACT AND PATENT, PATIENT IS ABLE TO TOLERATE FOOD WITH SOFT DIET WITH NO ASPIRATION NOTED. ALL MEDS GIVEN AND WELL TOLERATED. WILL ENDORSE TO PM SHIFT TO CONTINUE PILO
[2017-12-03 20:00] VITALS: BP 101/65
--- NOTE | 2017-12-03 20:22 | NUR ---
RN [facility] INITIAL NOTE PATIENT IS AWAKE SITTING IN BED, WATCHING TV, ALERT ORIENTED X3 , ON C/A 28% CURRENTLY ON 3LPM O2 SATURATION 100% , NO SOB OR DISTRESS NOTED, PATIENT WAS ABLE TO AMBULATE TO BEDSIDE COMMODE. GT INTACT AND PATENT, PATIENT IS ABLE TO TOLERATE FOOD WITH SOFT DIET WITH NO ASPIRATION NOTED. PM MEDS TO BE GIVEN . WILL TO CONT TO MONITOR.
[2017-12-03] MEDS: SENNOSIDES 8.6 MG TABLET PO SCH (21:20)
[2017-12-03] MEDS: LORAZEPAM INJ 2 MG/ML VIAL IV PRN (21:33)
[2017-12-04] VITALS: BP 104/66
[2017-12-04] MEDS: METOCLOPRAMIDE HCL 10 MG/10 ML UDC PO SCH ×3 (01:31→17:48)
[2017-12-04 04:00] VITALS: BP 110/73
[2017-12-04 05:54] LABS: BASOPHILS % (AUTO) 0.6 % (0.0-2.0); EOSINOPHILS # (AUTO) 0.4 /CMM (0.0-0.7); EOSINOPHILS % (AUTO) 5.1 % (0.0-6.0); HEMATOCRIT 28 % (39-51); HEMOGLOBIN 9.4 g/dL (13.5-17.5); LYMPHOCYTES % (AUTO) 28.3 % (20.0-44.0); MEAN CORPUSCULAR HEMOGLOBIN 31 PG (26.0-33.0); MEAN CORPUSCULAR HGB CONC 34 g/dl (31.0-36.0); MEAN CORPUSCULAR VOLUME 91 fL (80-96); MONOCYTES # (AUTO) 0.5 /CMM (0.1-1.30); MONOCYTES % (AUTO) 7.7 % (2.0-12.0); NEUTROPHILS # (AUTO) 4.1 /CMM (1.8-8.9); NEUTROPHILS % (AUTO) 58.3 % (43.0-81.0); PLATELET COUNT (AUTO) 259 /CMM (150-450); RDW COEFFICIENT OF VARIATION 13.9 (11.5-15.0); RED BLOOD CELL COUNT(AUTO) 3.07 MIL/uL (4.5-6.0); WHITE BLOOD COUNT (AUTO) 7.1 K/uL (4.3-11.0)
--- NOTE | 2017-12-04 06:16 | NUR ---
RN [facility] CLOSING NOTE PATIENT IS AWAKE SITTING IN BED, WATCHING TV, ALERT ORIENTED X3 , ON C/A 28% CURRENTLY ON 3LPM O2 SATURATION 100% , NO SOB OR DISTRESS NOTED, PATIENT WAS ABLE TO AMBULATE TO BEDSIDE COMMODE. GT INTACT AND PATENT, PATIENT IS ABLE TO TOLERATE FOOD WITH SOFT DIET WITH NO ASPIRATION NOTED. PM MEDS TO BE GIVEN . WILL TO CONT TO MONITOR.
[2017-12-04 07:21] LABS: CREATININE 0.9 mg/dL (0.6-1.3); POTASSIUM 3.4 mmol/L (3.5-5.1)
[2017-12-04 08:00] VITALS: BP 109/76
--- NOTE | 2017-12-04 08:00 | NUR ---
TD/RN AM SHIFT INITIAL NOTES RECEIVED PT AWAKE SITTING IN BED WITH SITTER AT BEDSIDE. NO ACUTE CHANGE OF CONDITION. PT A/O X 3, DENIES ANY SYMPTOMS. ON COOL AEROSOL WITH 4L O2, FIO2 40%, SATURATING @ 100%, LUNG SOUNDS DIMINISHED, RESPIRATIONS EVEN & UNLABORED. ON TELE WITH SINUS RHYTHM, HR 85. IV SITE FLUSHED, PATENT WITH NO S/S OF INFECTION. PT IS COMFORTABLE, SCHEDULED AM MEDS TO BE GIVEN. PT ANTICIPATED TO BE CAPPED OFF TODAY. CL WITHIN REACHED AND SAFETY MAINTAINED. ON GOING MONITORING.
[2017-12-04] MEDS: ACETYLCYSTEINE 10% SOLN 400 MG/4 ML VIAL NEB SCH ×2 (08:01→19:43)
--- NOTE | 2017-12-04 08:30 | NUR ---
TD/RN CAPPED OFF PT TRACH CAPPED OFF, PLACED ON 3L O2 VIA N/C, SATURATING WELL, NO SOB. ON GOING MONITORING.
[2017-12-04] MEDS: PROSOURCE / PROSTAT (PYXIS) 30 ML UDC GT SCH ×2 (08:44→09:00)
[2017-12-04] MEDS: ENOXAPARIN SODIUM 40 MG/0.4 ML DISP.SYRIN SQ SCH (08:45)
[2017-12-04] MEDS: PANTOPRAZOLE 40 MG VIAL IV SCH (08:46)
[2017-12-04] MEDS: HALOPERIDOL 1 MG TABLET GT SCH ×5 (08:46→21:30)
[2017-12-04] MEDS: METHADONE HCL 10 MG TABLET PO SCH (08:48)
[2017-12-04] MEDS: THIAMINE HCL 100 MG TABLET PO SCH (08:49)
[2017-12-04] MEDS: BENZTROPINE MESYLATE (1 MG) 1 MG TABLET PO SCH ×2 (08:49→17:48)
[2017-12-04] MEDS: LACTOBACILLUS RHAMNOSUS GG 1 EACH CAP.SPRINK GT SCH ×2 (08:49→17:48)
[2017-12-04] MEDS: FOLIC ACID 1 MG TABLET PO SCH (08:50)
[2017-12-04] MEDS: Z GUARD REMEDY 2 OZ OINT TP SCH ×2 (08:50→21:32)
[2017-12-04] MEDS: CLOTRIMAZOLE 1% 15 GM TUBE TP SCH ×2 (08:51→17:49)
[2017-12-04 12:00] VITALS: BP 114/74
--- NOTE | 2017-12-04 12:00 | NUR ---
TD/RN NOON ROUNDS NO ACUTE CHANGE OF CONDITION. PT TOLERATING CAPPED TRACH. MONITORING CONTINUED.
[2017-12-04] MEDS ORDERED: POTASSIUM CHLORIDE 10 MEQ TABLET.SA PO ONE (13:30)
[2017-12-04 16:00] VITALS: BP 97/64
[2017-12-04] MEDS: FLUCONAZOLE (100 MG) 100 MG TABLET PO SCH (17:48)
--- NOTE | 2017-12-04 19:22 | NUR ---
TD/RN AM SHIFT END NOTES ALL NEEDS MET. NO ACUTE CHANGE OF CONDITION OR RESPIRATORY DISTRESS NOTED DURING THE SHIFT. PT TOLERATED CAPPED TRACH, CURRENTLY ON 2L VIA N/C SATURATING @ 100%, RESPIRATIONS EVEN & UNLABORED. ENDORSED TO PM NURSE TO CONTINUE CARE. CL WITHIN REACHED AND SAFETY MAINTAINED.
--- NOTE | 2017-12-04 19:54 | NUR ---
TD RN INITIAL NOTES RECEIVED PT NO ACUTE CHANGE OF CONDITION OR RESPIRATORY DISTRESS NOTED @ THIS TIME. PT TOLERATED CAPPED TRACH, CURRENTLY ON 2L VIA N/C SATURATING @ 100%, RESPIRATIONS EVEN & UNLABORED. ENDORSED TO PM NURSE TO CONTINUE CARE. CL WITHIN REACHED AND SAFETY MAINTAINED.
[2017-12-04 20:00] VITALS: BP 106/65
[2017-12-04] MEDS: LORAZEPAM INJ 2 MG/ML VIAL IV PRN (21:30)
[2017-12-04] MEDS: SENNOSIDES 8.6 MG TABLET PO SCH (21:33)
--- NOTE | 2017-12-04 21:38 | NUR ---
GUILLERMINA NOT GIVEN PT C/O LOOSE STOOL
[2017-12-05] VITALS: BP 95/50
[2017-12-05] MEDS: diphenhydrAMINE HCL 50 MG/ML VIAL IV PRN (00:36)
[2017-12-05] MEDS: MORPHINE SULFATE INJ 4 MG/ML DISP.SYRIN IV PRN (00:37)
[2017-12-05] MEDS: METOCLOPRAMIDE HCL 10 MG/10 ML UDC PO SCH ×3 (01:25→17:56)
--- NOTE | 2017-12-05 01:27 | NUR ---
0200 REGLAN PT REFUSED OFFERED X 3 RISK AND BENEFIT EXPLAINED, D/T LOOSE BM
[2017-12-05 04:00] VITALS: BP 108/65
--- NOTE | 2017-12-05 06:13 | NUR ---
TD RN CLOSING NOTES ENDORSED PT NO ACUTE CHANGE OF CONDITION OR RESPIRATORY DISTRESS NOTED @ THIS TIME. PT C/A@ 2L VIA N/C SATURATING @ 100%, RESPIRATIONS EVEN & UNLABORED. ENDORSED TO AM NURSE TO CONTINUE CARE. CL WITHIN REACHED AND SAFETY MAINTAINED.
[2017-12-05] MEDS: ACETYLCYSTEINE 10% SOLN 400 MG/4 ML VIAL NEB SCH ×2 (07:30→19:18)
--- NOTE | 2017-12-05 07:37 | NUR ---
RT PLACED PT ON TRACH CAP WITH 2 LPM O2 VIA NC. RN AWARE AND AT BEDSIDE. PATIENT IS AWAKE, ALERT AND VERBALIZES. PT STATES FEELING COMFORTABLE AND HAS NO COMPLAINTS OF DISTRESS. SpO2 99%. WILL CONTINUE TO MONITOR THE PATIENT CLOSELY FOR ANY CHANGE OF CONDITION. Addendum: 12/05/17 at 1047 by FLOR WAGNER RT Amended: Links added.
[2017-12-05 08:00] VITALS: BP 107/68
--- NOTE | 2017-12-05 08:00 | NUR ---
TD/RN AM SHIFT INITIAL NOTES RECEIVED PT AWAKE SITTING IN BED WITH SITTER AT BEDSIDE. NO ACUTE CHANGE OF CONDITION. PT A/O X 3, DENIES ANY SYMPTOMS. TRACH CAPPED OFF ON 2L O2 VIA N/C SATURATING @ 99%, LUNG SOUNDS DIMINISHED, RESPIRATIONS EVEN & UNLABORED. ON TELE WITH SINUS RHYTHM, HR 84. IV SITE FLUSHED, PATENT WITH NO S/S OF INFECTION. PT IS COMFORTABLE, SCHEDULED AM MEDS TO BE GIVEN. CL WITHIN REACHED AND SAFETY MAINTAINED. ON GOING MONITORING. Addendum: 12/05/17 at 1023 by CITLALI LYON RN ADDENDUM: PT REFUSED PROSTAT, RISKS & BENEFITS EXPLAINED, STILL REFUSED.
[2017-12-05] MEDS: ENOXAPARIN SODIUM 40 MG/0.4 ML DISP.SYRIN SQ SCH (08:49)
[2017-12-05] MEDS: BENZTROPINE MESYLATE (1 MG) 1 MG TABLET PO SCH ×2 (08:50→17:57)
[2017-12-05] MEDS: PANTOPRAZOLE 40 MG VIAL IV SCH (08:50)
[2017-12-05] MEDS: HALOPERIDOL 1 MG TABLET GT SCH ×4 (08:50→20:22)
[2017-12-05] MEDS: THIAMINE HCL 100 MG TABLET PO SCH (08:50)
[2017-12-05] MEDS: FOLIC ACID 1 MG TABLET PO SCH (08:51)
[2017-12-05] MEDS: METHADONE HCL 10 MG TABLET PO SCH (08:51)
[2017-12-05] MEDS: LACTOBACILLUS RHAMNOSUS GG 1 EACH CAP.SPRINK GT SCH ×2 (08:51→17:57)
[2017-12-05] MEDS: PROSOURCE / PROSTAT (PYXIS) 30 ML UDC GT SCH (08:51)
[2017-12-05] MEDS: Z GUARD REMEDY 2 OZ OINT TP SCH ×2 (08:52→20:24)
[2017-12-05] MEDS: CLOTRIMAZOLE 1% 15 GM TUBE TP SCH ×2 (08:52→17:57)
--- NOTE | 2017-12-05 12:00 | NUR ---
MS1/RN NOON ROUNDS NO CHANGE OF CONDITION. MONITORING CONTINUED.
[2017-12-05] MEDS ORDERED: HALOPERIDOL 1 MG TABLET GT PRN (13:30)
[2017-12-05 16:00] VITALS: BP 94/57
--- NOTE | 2017-12-05 17:30 | NUR ---
MS1/RN AFTERNOON ROUNDS PT TOLERATING CAPPED TRACH, NO SOB. ON GOING MONITORING.
[2017-12-05] MEDS: FLUCONAZOLE (100 MG) 100 MG TABLET PO SCH (17:57)
[2017-12-05] MEDS ORDERED: ACETYLCYSTEINE 20% SOLN 800 MG/4 ML VIAL ONE (18:48)
--- NOTE | 2017-12-05 19:39 | NUR ---
MS1/RN AM SHIFT END NOTES ALL NEEDS MET. NO ACUTE CHANGE OF CONDITION NOTED DURING THE SHIFT. PT ENDORSED TO PM NURSE TO CONTINUE CARE. CL WITHIN REACHED AND SAFETY MAINTAINED.
[2017-12-05 20:00] VITALS: BP 114/74
--- NOTE | 2017-12-05 20:13 | NUR ---
RN NOTE RECEIVED PATIENT IN THE CHAIR, ALERT/ORIENTED X 4, VISITOR IS BY BEDSIDE, SITTER IS BY BEDSIDE, NO RESPIRATORY DISTRESS NOTED, NO PAIN OR DISCOMFORT NOTED, ALL SAFETY MEASURES TAKEN, CALL LIGHT WITHIN REACH, ALL BELONGINGS WITHIN REACH, WILL CONTINUE TO MONITOR PATIENT
[2017-12-05] MEDS: SENNOSIDES 8.6 MG TABLET PO SCH (22:00)
[2017-12-06] MEDS: METOCLOPRAMIDE HCL 10 MG/10 ML UDC PO SCH ×2 (02:00→09:07)
[2017-12-06] MEDS: LOPERAMIDE HCL (2 MG CAP) 2 MG CAPSULE PO PRN ×2 (04:47→08:49)
--- NOTE | 2017-12-06 07:06 | NUR ---
RN NOTE NO CHANGES DURING MY SHIFT, PATIENT IS STABLE, SITTING IN THE CHAIR, ALERT/ORIENTED X 4, ALL SAFETY MEASURES TAKEN
--- NOTE | 2017-12-06 07:15 | NUR ---
ms rn initial notes Received patient in bed, awake, head of bed elevated, no SOB or distress noted, on room air and tolerated well. Alert and oriented x 4, verbally responsive and able to make needs known. Peritoneal access intact, right femoral cath intact, DAVID picc line in placed dressing intact. Patient is NPO for scheduled colonoscopy EGD today. Call light with in patient reach, will continue to monitor accordingly.
[2017-12-06] MEDS: ACETYLCYSTEINE 10% SOLN 400 MG/4 ML VIAL NEB SCH (07:49)
[2017-12-06 08:00] VITALS: BP 111/84
--- NOTE | 2017-12-06 08:17 | NUR ---
PT IS AWAKE AND VERY TALKATIVE, PT SAID " I DON'T NEED THIS COOL AEROSOL ALREADY." PT. RECEIVED ON ROOM AIR WITH SATURATION 99% Addendum: 12/06/17 at 0821 by KAE ROBERTS RT Amended: Links added.
[2017-12-06] MEDS: PANTOPRAZOLE 40 MG VIAL IV SCH (08:50)
[2017-12-06] MEDS: LACTOBACILLUS RHAMNOSUS GG 1 EACH CAP.SPRINK GT SCH (08:51)
[2017-12-06] MEDS: METHADONE HCL 10 MG TABLET PO SCH (08:52)
[2017-12-06] MEDS: BENZTROPINE MESYLATE (1 MG) 1 MG TABLET PO SCH (08:52)
[2017-12-06] MEDS: FOLIC ACID 1 MG TABLET PO SCH (08:53)
[2017-12-06] MEDS: HALOPERIDOL 1 MG TABLET GT SCH ×2 (08:53→12:18)
[2017-12-06] MEDS: ENOXAPARIN SODIUM 40 MG/0.4 ML DISP.SYRIN SQ SCH (08:56)
[2017-12-06] MEDS: PROSOURCE / PROSTAT (PYXIS) 30 ML UDC GT SCH (08:57)
[2017-12-06] MEDS: THIAMINE HCL 100 MG TABLET PO SCH (08:58)
[2017-12-06] MEDS: CLOTRIMAZOLE 1% 15 GM TUBE TP SCH (08:59)
[2017-12-06] MEDS: Z GUARD REMEDY 2 OZ OINT TP SCH (08:59)
--- NOTE | 2017-12-06 09:45 | NUR ---
DECANNULATED ORDER. PT IS VERY HAPPY AFTER DECANNULATION. SPO2 98% @ ROOM AIR HR 102 Addendum: 12/06/17 at 0947 by KAE ROBERTS RT Amended: Links added.
--- NOTE | 2017-12-06 09:45 | NUR ---
ms rn notes Patient decannulated by RT with Dr Raza ordered and patient tolerated well. No distress or SOB noted. Will continue to monitor.
[2017-12-06] MEDS: ACETAMINOPHEN 650 MG/20.3 ML UDC NG PRN (12:15)
--- NOTE | 2017-12-06 12:19 | NUR ---
ms rn notes Dr. Davila came, seen and examined the patient and removed GT, pain medication Tylenol given and tolerated well. Will continue to monitor. Patient refused Haldol. Explained the risk and benefits x 3 and still refused. Per Patient I don't want to be knock down.
--- NOTE | 2017-12-06 15:30 | NUR ---
ms rn community health notes Discharge instructions given to patient and gabriella Hyde and able to understand instructions. Signed discharge paper and belonging list. Short, Shirt and underwear missing. Pictures taken by wreath machine tender RN and filed in the chart. S/P decannulated with stoma and patient refused picture and GT removed by MD. Flu vaccine and pneumonia vaccine not given due to patient refusing. Explained the risk and benefits x 3, and still refused. Per patient he is not getting flu vaccine ever. Patient is <65 years old for the PNA vaccine. Patient left the hospital in stable condition accompanied by ARLEEN cristina and gabriella Hyde, no complaint of pain or discomfort noted, nor chest pain. Vital signs checked and recorded. Extra gauze and dressing given for the stoma.
== END 2017-12-06 15:35 | disposition home health service (06) | DRG 5 ==
LOC: ER 00:08 → ICU 02:57 → TELE-TD 12-02 18:11 → MEDSG1 12-05 09:03
PROVIDERS: ADMIT Internal Medicine; ATTEND Internal Medicine
PROC: B548ZZA Ultrasonography of Superior Vena Cava, Guidance (ICD-10-PCS; principal; 2017-11-01)
PROC: 02HV33Z Insertion of Infusion Device into Superior Vena Cava, Percutaneous Approach (ICD-10-PCS; principal; 2017-11-01)
PROC: 0BH17EZ Insertion of Endotracheal Airway into Trachea, Via Natural or Artificial Opening (ICD-10-PCS; principal; 2017-11-01)
PROC: 5A1955Z Respiratory Ventilation, Greater than 96 Consecutive Hours (ICD-10-PCS; principal; 2017-11-01)
PROC: 02HV33Z Insertion of Infusion Device into Superior Vena Cava, Percutaneous Approach (ICD-10-PCS; 2017-11-11)
PROC: B548ZZA Ultrasonography of Superior Vena Cava, Guidance (ICD-10-PCS; 2017-11-11)
PROC: 0B110F4 Bypass Trachea to Cutaneous with Tracheostomy Device, Open Approach (ICD-10-PCS; 2017-11-15)
PROC: 05HB33Z Insertion of Infusion Device into Right Basilic Vein, Percutaneous Approach (ICD-10-PCS; 2017-11-26)
PROC: 0DH63UZ Insertion of Feeding Device into Stomach, Percutaneous Approach (ICD-10-PCS; 2017-11-30)
DX: T43.621A Poisoning by amphetamines, accidental (unintentional), initial encounter (principal); I21.A1 Myocardial infarction type 2; N17.0 Acute kidney failure with tubular necrosis; R65.21 Severe sepsis with septic shock; J69.0 Pneumonitis due to inhalation of food and vomit; A41.9 Sepsis, unspecified organism; G92 Toxic encephalopathy; J96.01 Acute respiratory failure with hypoxia; J96.02 Acute respiratory failure with hypercapnia; E87.6 Hypokalemia; F32.9 Major depressive disorder, single episode, unspecified; D64.9 Anemia, unspecified; E44.0 Moderate protein-calorie malnutrition; Y92.009 Unspecified place in unspecified non-institutional (private) residence as the place of occurrence of the external cause; N17.9 Acute kidney failure, unspecified; T51.91XA Toxic effect of unspecified alcohol, accidental (unintentional), initial encounter; T40.2X1A Poisoning by other opioids, accidental (unintentional), initial encounter; E83.51 Hypocalcemia; E78.1 Pure hyperglyceridemia; E87.0 Hyperosmolality and hypernatremia; E46 Unspecified protein-calorie malnutrition; D68.59 Other primary thrombophilia; E66.9 Obesity, unspecified; Z68.26 Body mass index [BMI] 26.0-26.9, adult; F41.9 Anxiety disorder, unspecified; B37.49 Other urogenital candidiasis; F19.10 Other psychoactive substance abuse, uncomplicated; R13.10 Dysphagia, unspecified; T40.3X1A Poisoning by methadone, accidental (unintentional), initial encounter
CPT/HCPCS: 31720; 36415; 36569; 36600; 43246; 71045-TC; 76700-TC; 80048-TC; 80053-TC; 80061-TC; 80076-TC; 80202-TC; 80305; 81000-TC; 82550-TC; 82570-TC; 82803-TC; 83605-TC; 83735-TC; 84100-TC; 84300-TC; 84443-TC; 84478-TC; 84484-TC; 85025-TC; 85027-TC; 85610-TC; 85730-TC; 87040-TC; 87070-TC; 87081-TC; 87086-TC; 92611-TC; 93970-TC; 94002-TC; 94003-TC; 94760-TC; 94762-TC; 97116-TC; 97530-TC; 99082-TC; A4216; A4606; A4623; A6402; A7526; C1751; C9113; G0480; J0515; J0690; J0770; J1200; J1630; J1650; J1940; J1956; J2060; J2185; J2250; J2270; J2274; J2370; J2405; J2543; J2704; J3010; J3370; J3411; J3475; J3480; J3490; J7030; J7040; J7050; J7060; J8597; Z7610